=== PATIENT | female | born 1970 | race American Indian/Alaskan Native ===

== ENCOUNTER 2023-01-08 06:30 | Emergency (ER) | payer OTHER ==
[2023-01-08] MEDS ORDERED: ACETAMINOPHEN 500 MG TABLET (FP) PO ONE (06:50)
[2023-01-08 06:55] VITALS: RESP 20; BMI 32.2
[2023-01-08] MEDS ORDERED: ACETAMINOPHEN 325 MG TABLET (FP) ONE (07:08)
[2023-01-08 07:48] LABS: EOS % 3.9 % (0-4.5); HEMATOCRIT 34.9 % (32.4-45.2); HEMOGLOBIN 10.7 GM/dL (10.7-15.3); LYMPH % 26.8 % (8-40); MCH 23.9 pg (25.7-33.7); MCHC 30.8 g/dl (32.0-36.0); MEAN CELL VOLUME 77.7 fl (80-96); MONO % 7.2 % (3.8-10.2); NEUT % 61.1 % (42.8-82.8); PLATELET COUNT 263 10^3/uL (134-434); RBC 4.49 M/mm3 (3.60-5.2); RDW 16.7 % (11.6-15.6); WHITE BLOOD COUNT 6.4 K/mm3 (4.0-10.0)
[2023-01-08 07:56] LABS: CHLORIDE 96 mmol/L (98-107); POTASSIUM 4.8 mmol/L (3.5-5.1); SODIUM 134 mmol/L (136-145)
[2023-01-08 07:58] LABS: ALBUMIN 3.7 g/dl (3.4-5.0); ANION GAP 9 MMOL/L (8-16); CALCIUM 8.5 mg/dL (8.5-10.1); CO2 29 mmol/L (21-32)
[2023-01-08 07:59] LABS: BLOOD UREA NITROGEN 10.1 mg/dL (7-18)
[2023-01-08 08:01] LABS: SGPT/ALT 39 U/L (13-61)
[2023-01-08 08:02] LABS: CREATININE 0.9 mg/dL (0.55-1.3); SGOT/AST 26 U/L (15-37)
[2023-01-08 08:03] LABS: BILIRUBIN,TOTAL 0.4 mg/dL (0.2-1); TOT PROT 7.4 g/dl (6.4-8.2)
[2023-01-08 08:05] LABS: ALK PHOS 87 U/L (45-117)
[2023-01-08 08:13] LABS: GLUCOSE,RANDOM 490 mg/dL (74-106)
[2023-01-08] MEDS ORDERED: SODIUM CHLORIDE 0.9% 500 ML INFUS.BAG IV ONE (08:43)
[2023-01-08 09:59] VITALS: BP 156/83; PULSE 83; TEMP 97.8
== END 2023-01-08 12:48 | disposition home or self-care (01) ==
LOC: JER 06:30
DX: N63.10 Unspecified lump in the right breast, unspecified quadrant (principal); N64.4 Mastodynia
CPT/HCPCS: 19083; 36415; 76641-TC-RT; 77065-TC; 80053; 82962; 85025; 86850; 86900; 86901; 87040; 87899; 88305-TC; 88342-TC; 99284-25; A4648

== ENCOUNTER 2023-03-16 08:55 | Day surgery (SDC) | payer OTHER ==
[2023-03-16 09:38] LABS: BASO % 0.8 % (0-2.0); EOS % 5.3 % (0-4.5); HEMATOCRIT 33.6 % (32.4-45.2); HEMOGLOBIN 10.4 GM/dL (10.7-15.3); LYMPH % 19.4 % (8-40); MCH 23.2 pg (25.7-33.7); MCHC 31.1 g/dl (32.0-36.0); MEAN CELL VOLUME 74.8 fl (80-96); MEAN PLT VOLUME 8.3 fl (7.5-11.1); MONO % 6.2 % (3.8-10.2); NEUT % 68.3 % (42.8-82.8); PLATELET COUNT 336 10^3/uL (134-434); RDW 17.2 % (11.6-15.6); WHITE BLOOD COUNT 7.9 K/mm3 (4.0-10.0)
[2023-03-16] MEDS ORDERED: GRANISETRON HCL/PF 1 MG in SODIUM CHLORIDE 50 ML IVPB ONE (10:00)
[2023-03-16 10:04] LABS: CHLORIDE 99 mmol/L (98-107); POTASSIUM 5.3 mmol/L (3.5-5.1); SODIUM 130 mmol/L (136-145)
[2023-03-16 10:06] LABS: CALCIUM 8.9 mg/dL (8.5-10.1)
[2023-03-16 10:07] LABS: ALBUMIN 3.4 g/dl (3.4-5.0); ANION GAP 5 mmol/L (4-13); BLOOD UREA NITROGEN 10.4 mg/dL (7-18); CO2 27 mmol/L (21-32)
[2023-03-16 10:10] LABS: BILIRUBIN,DIRECT 0.1 mg/dL (0.0-0.2); CREATININE 0.7 mg/dL (0.55-1.3); SGOT/AST 15 U/L (15-37); SGPT/ALT 25 U/L (13-61)
[2023-03-16 10:11] LABS: BILIRUBIN,TOTAL 0.2 mg/dL (0.2-1); TOT PROT 7.3 g/dl (6.4-8.2)
[2023-03-16 10:12] LABS: ALK PHOS 116 U/L (45-117); GLUCOSE,RANDOM 434 mg/dL (74-106)
[2023-03-16] MEDS ORDERED: PEMBROLIZUMAB 200 MG in SODIUM CHLORIDE 50 ML IV ONE (10:30)
[2023-03-16] MEDS ORDERED: PACLITAXEL IVPB ONE (11:00)
[2023-03-16] MEDS ORDERED: SODIUM CHLORIDE IVPB ONE (11:00)
[2023-03-16] MEDS ORDERED: DEXAMETHASONE SODIUM PHOSPHATE 10 MG in SODIUM CHLORIDE 50 ML IVPB ONE (11:00)
[2023-03-16] MEDS ORDERED: INSULIN (NOVOLOG) ASPART 100 UNITS/ML 10ML VIAL SQ ONE (11:45)
[2023-03-16 16:11] VITALS: RESP 18; TEMP 98.1
[2023-03-16 16:25] VITALS: BP 165/108; PULSE 95
== END 2023-03-16 14:30 | disposition home or self-care (01) ==
LOC: JONCCHEMO 08:55 → J7W 08:55 → JONCCHEMO 14:30
PROVIDERS: ATTEND Internal Medicine Hematology & Oncology
DX: Z51.11 Encounter for antineoplastic chemotherapy (principal); C50.919 Malignant neoplasm of unspecified site of unspecified female breast; C78.02 Secondary malignant neoplasm of left lung; C78.01 Secondary malignant neoplasm of right lung
CPT/HCPCS: 36415; 80048; 80076; 82962; 84703; 85025; 96367; 96375; 96413; 96417; J9271

== ENCOUNTER 2023-03-23 08:44 | Day surgery (SDC) | payer OTHER ==
[2023-03-23 09:25] LABS: HEMOGLOBIN 10.9 GM/dL (10.7-15.3); LYMPH % 24.5 % (8-40); MCH 23.2 pg (25.7-33.7); MEAN CELL VOLUME 72.7 fl (80-96); MEAN PLT VOLUME 8.3 fl (7.5-11.1); MONO % 4.3 % (3.8-10.2); NEUT % 61.2 % (42.8-82.8); PLATELET COUNT 344 10^3/uL (134-434); RBC 4.68 M/mm3 (3.60-5.2); RDW 17.5 % (11.6-15.6); WHITE BLOOD COUNT 6.2 K/mm3 (4.0-10.0)
[2023-03-23] MEDS ORDERED: DEXAMETHASONE SODIUM PHOSPHATE 10 MG in SODIUM CHLORIDE 50 ML IVPB ONE (09:30)
[2023-03-23] MEDS ORDERED: GRANISETRON HCL/PF 1 MG in SODIUM CHLORIDE 50 ML IVPB ONE (09:30)
[2023-03-23 09:35] LABS: CHLORIDE 98 mmol/L (98-107); POTASSIUM 4.5 mmol/L (3.5-5.1); SODIUM 132 mmol/L (136-145)
[2023-03-23 09:37] LABS: ALBUMIN 3.4 g/dl (3.4-5.0)
[2023-03-23 09:38] LABS: ANION GAP 9 mmol/L (4-13); BLOOD UREA NITROGEN 6.4 mg/dL (7-18); CO2 26 mmol/L (21-32)
[2023-03-23 09:40] LABS: BILIRUBIN,DIRECT 0.1 mg/dL (0.0-0.2); CREATININE 0.8 mg/dL (0.55-1.3); SGOT/AST 27 U/L (15-37)
[2023-03-23 09:41] LABS: SGPT/ALT 56 U/L (13-61)
[2023-03-23 09:42] LABS: BILIRUBIN,TOTAL 0.2 mg/dL (0.2-1); TOT PROT 6.9 g/dl (6.4-8.2)
[2023-03-23 09:43] LABS: ALK PHOS 96 U/L (45-117)
[2023-03-23 09:45] LABS: GLUCOSE,RANDOM 408 mg/dL (74-106)
[2023-03-23] MEDS ORDERED: SODIUM CHLORIDE IVPB ONE (10:00)
[2023-03-23] MEDS ORDERED: PACLITAXEL IVPB ONE (10:00)
[2023-03-23] MEDS ORDERED: INSULIN (NOVOLOG) ASPART 100 UNITS/ML 10ML VIAL ONE (11:04)
[2023-03-23] MEDS ORDERED: INSULIN (NOVOLOG) ASPART 100 UNITS/ML 10ML VIAL SQ ONE (11:25)
[2023-03-23] MEDS ORDERED: INSULIN SLIDING SCALE (NOVOLOG) 1 VIAL SQ ONE (13:00)
[2023-03-23 15:24] VITALS: BP 164/77; PULSE 90; RESP 18; TEMP 98.5
== END 2023-03-23 13:15 | disposition home or self-care (01) ==
LOC: JONCCHEMO 08:44 → J7W 08:45 → JONCCHEMO 13:15
PROVIDERS: ATTEND Internal Medicine Hematology & Oncology
DX: Z51.11 Encounter for antineoplastic chemotherapy (principal); C50.919 Malignant neoplasm of unspecified site of unspecified female breast; C78.02 Secondary malignant neoplasm of left lung; C78.01 Secondary malignant neoplasm of right lung
CPT/HCPCS: 36415; 80048; 80076; 85025; 96367; 96375; 96413; J9271

== ENCOUNTER 2023-04-06 07:41 | Day surgery (SDC) | payer OTHER ==
[2023-04-06 08:41] LABS: EOS % 7.9 % (0-4.5); HEMATOCRIT 32.7 % (32.4-45.2); LYMPH % 20.3 % (8-40); MCH 22.5 pg (25.7-33.7); MCHC 30.5 g/dl (32.0-36.0); MEAN CELL VOLUME 73.7 fl (80-96); MEAN PLT VOLUME 8.2 fl (7.5-11.1); MONO % 10.9 % (3.8-10.2); NEUT % 59.9 % (42.8-82.8); PLATELET COUNT 332 10^3/uL (134-434); RBC 4.44 M/mm3 (3.60-5.2); RDW 17.6 % (11.6-15.6); WHITE BLOOD COUNT 7.7 K/mm3 (4.0-10.0)
[2023-04-06 09:01] LABS: POTASSIUM 4.4 mmol/L (3.5-5.1)
[2023-04-06 09:04] LABS: ALBUMIN 3.2 g/dl (3.4-5.0); BLOOD UREA NITROGEN 8.7 mg/dL (7-18); CALCIUM 8.4 mg/dL (8.5-10.1)
[2023-04-06 09:06] LABS: BILIRUBIN,DIRECT 0.1 mg/dL (0.0-0.2)
[2023-04-06 09:07] LABS: CREATININE 0.6 mg/dL (0.55-1.3)
[2023-04-06 09:08] LABS: TOT PROT 6.4 g/dl (6.4-8.2)
[2023-04-06 09:09] LABS: BILIRUBIN,TOTAL 0.3 mg/dL (0.2-1)
[2023-04-06] MEDS ORDERED: DEXAMETHASONE SODIUM PHOSPHATE 10 MG in SODIUM CHLORIDE 50 ML IVPB ONE ×2 (09:30→10:30)
[2023-04-06] MEDS ORDERED: GRANISETRON HCL/PF 1 MG in SODIUM CHLORIDE 50 ML IVPB ONE (09:30)
[2023-04-06] MEDS ORDERED: PEMBROLIZUMAB 200 MG in SODIUM CHLORIDE 50 ML IV ONE (10:00)
[2023-04-06] MEDS ORDERED: INSULIN SLIDING SCALE (NOVOLOG) 1 VIAL SQ ONE (10:30)
[2023-04-06] MEDS ORDERED: PACLITAXEL IVPB ONE (10:30)
[2023-04-06] MEDS ORDERED: SODIUM CHLORIDE IVPB ONE (10:30)
[2023-04-06 14:56] VITALS: BP 173/82; PULSE 76; RESP 18; TEMP 98.2
== END 2023-04-06 13:14 | disposition home or self-care (01) ==
LOC: JONCCHEMO 07:41 → J7W 07:43 → JONCCHEMO 13:14
PROVIDERS: ATTEND Internal Medicine Hematology & Oncology
DX: Z51.11 Encounter for antineoplastic chemotherapy (principal); C50.919 Malignant neoplasm of unspecified site of unspecified female breast
CPT/HCPCS: 36415; 80048; 80076; 84703; 85025; 96367; 96375; 96413; 96417; J9271

== ENCOUNTER 2023-04-13 07:19 | Day surgery (SDC) | payer OTHER ==
[2023-04-13 08:20] LABS: BASO % 0.8 % (0-2.0); EOS % 6.5 % (0-4.5); HEMATOCRIT 31.7 % (32.4-45.2); HEMOGLOBIN 10.2 GM/dL (10.7-15.3); MCH 23.8 pg (25.7-33.7); MCHC 32.3 g/dl (32.0-36.0); MEAN CELL VOLUME 73.6 fl (80-96); MEAN PLT VOLUME 8.9 fl (7.5-11.1); MONO % 5.3 % (3.8-10.2); NEUT % 69.4 % (42.8-82.8); PLATELET COUNT 323 10^3/uL (134-434); RDW 17.3 % (11.6-15.6); WHITE BLOOD COUNT 8.7 K/mm3 (4.0-10.0)
[2023-04-13 08:33] LABS: POTASSIUM 4.4 mmol/L (3.5-5.1)
[2023-04-13 08:35] LABS: ALBUMIN 3.3 g/dl (3.4-5.0); BLOOD UREA NITROGEN 9.4 mg/dL (7-18); CALCIUM 8.3 mg/dL (8.5-10.1)
[2023-04-13 08:38] LABS: BILIRUBIN,DIRECT 0.1 mg/dL (0.0-0.2); CREATININE 0.6 mg/dL (0.55-1.3)
[2023-04-13 08:40] LABS: BILIRUBIN,TOTAL 0.3 mg/dL (0.2-1); TOT PROT 6.9 g/dl (6.4-8.2)
[2023-04-13] MEDS ORDERED: DEXAMETHASONE SODIUM PHOSPHATE 10 MG in SODIUM CHLORIDE 50 ML IVPB ONE (09:30)
[2023-04-13] MEDS ORDERED: GRANISETRON HCL/PF 1 MG in SODIUM CHLORIDE 50 ML IVPB ONE (09:30)
[2023-04-13] MEDS ORDERED: PACLITAXEL IVPB ONE (10:00)
[2023-04-13] MEDS ORDERED: SODIUM CHLORIDE IVPB ONE (10:00)
[2023-04-13 15:56] VITALS: BP 166/81; PULSE 104; RESP 18; TEMP 98.3
== END 2023-04-13 12:00 | disposition home or self-care (01) ==
LOC: JONCCHEMO 07:19 → J7W 07:20 → JONCCHEMO 12:00
PROVIDERS: ATTEND Internal Medicine Hematology & Oncology
DX: Z51.11 Encounter for antineoplastic chemotherapy (principal); C50.919 Malignant neoplasm of unspecified site of unspecified female breast; C78.02 Secondary malignant neoplasm of left lung; C78.01 Secondary malignant neoplasm of right lung
CPT/HCPCS: 36415; 80048; 80076; 85025; 96375; 96413; J9271

== ENCOUNTER 2023-04-21 08:56 | Emergency (ER) | payer OTHER ==
[2023-04-21 09:08] VITALS: BMI 33.2
[2023-04-21] MEDS ORDERED: ACETAMINOPHEN 1000 MG/100 ML BAG IVPB ONE (09:36)
[2023-04-21] MEDS ORDERED: MAG HYDROX/AL HYDROX/SIMETH 30 ML UNIT-DOSE CUP PO ONE (09:36)
[2023-04-21] MEDS ORDERED: FAMOTIDINE 20 MG/50 ML IVPB 20 MG/50 ML MG IVPB ONE ×2 (09:36→09:56)
[2023-04-21] MEDS ORDERED: ACETAMINOPHEN INJECTION 100 ML IVPB ONE (09:55)
[2023-04-21] MEDS ORDERED: MAG HYDROX/AL HYDROX/SIMETH 30 ML UNIT-DOSE CUP ONE (09:55)
[2023-04-21 10:05] LABS: HEMATOCRIT 30.6 % (32.4-45.2); HEMOGLOBIN 9.5 GM/dL (10.7-15.3); MCH 23.1 pg (25.7-33.7); MCHC 31.2 g/dl (32.0-36.0); MEAN CELL VOLUME 74.2 fl (80-96); MEAN PLT VOLUME 8.4 fl (7.5-11.1); PLATELET COUNT 306 10^3/uL (134-434); RBC 4.13 M/mm3 (3.60-5.2); RDW 18.2 % (11.6-15.6)
[2023-04-21 10:49] LABS: POTASSIUM 4.3 mmol/L (3.5-5.1)
[2023-04-21 10:52] LABS: BLOOD UREA NITROGEN 6.2 mg/dL (7-18); CALCIUM 8.4 mg/dL (8.5-10.1); MAGNESIUM 1.9 mg/dL (1.8-2.4)
[2023-04-21 10:56] LABS: BILIRUBIN,TOTAL 0.3 mg/dL (0.2-1); CREATININE 0.6 mg/dL (0.55-1.3)
[2023-04-21 10:57] LABS: TOT PROT 6.4 g/dl (6.4-8.2)
[2023-04-21] MEDS ORDERED: SODIUM CHLORIDE 0.9% 500 ML INFUS.BAG IV ONE (11:23)
[2023-04-21 11:40] LABS: ANISOCYTOSIS 2+; MACROCYTOSIS 0
[2023-04-21 12:06] LABS: PH,URINE 6.5 (5.0-8.0); URINE APPEARANCE CLEAR; URINE BILIRUBIN NEGATIVE (NEGATIVE); URINE COLOR YELLOW; URINE GLUCOSE (UA) 3+ (NEGATIVE); URINE KETONE NEGATIVE (NEGATIVE); URINE LEUK ESTERASE NEGATIVE (NEGATIVE); URINE NITRITE NEGATIVE (NEGATIVE); URINE PROTEIN NEGATIVE (NEGATIVE); URINE UROBILINOGEN 0.2 mg/dL (0.2-1.0)
[2023-04-21 13:17] VITALS: BP 133/69; PULSE 83; RESP 18; TEMP 97.7
== END 2023-04-21 14:12 | disposition home or self-care (01) ==
LOC: JER 08:56
PROC: 3E033GC Introduction of Other Therapeutic Substance into Peripheral Vein, Percutaneous Approach (ICD-10-PCS; principal; 2023-04-21)
PROC: 3E033NZ Introduction of Analgesics, Hypnotics, Sedatives into Peripheral Vein, Percutaneous Approach (ICD-10-PCS; 2023-04-21)
DX: R10.13 Epigastric pain (principal); R19.7 Diarrhea, unspecified; R06.02 Shortness of breath; Z20.822 Contact with and (suspected) exposure to COVID-19
CPT/HCPCS: 0241U-QW; 36415; 71045-TC-FY; 74174-TC; 80053; 81003; 83605; 83690; 83735; 84484; 84703; 85025; 87077; 87086; 93005; 93010; 99285-25; Q9967

== ENCOUNTER 2023-04-27 07:59 | Day surgery (SDC) | payer OTHER ==
[2023-04-27 08:52] VITALS: BP 162/79; PULSE 83; RESP 20; TEMP 98
[2023-04-27 08:58] LABS: HEMATOCRIT 30.4 % (32.4-45.2); HEMOGLOBIN 9.9 GM/dL (10.7-15.3); MCH 23.7 pg (25.7-33.7); MCHC 32.7 g/dl (32.0-36.0); MEAN CELL VOLUME 72.5 fl (80-96); MEAN PLT VOLUME 7.8 fl (7.5-11.1); PLATELET COUNT 328 10^3/uL (134-434); RDW 18.8 % (11.6-15.6); WHITE BLOOD COUNT 9.2 K/mm3 (4.0-10.0)
[2023-04-27 09:13] LABS: POTASSIUM 4.3 mmol/L (3.5-5.1)
[2023-04-27 09:15] LABS: ALBUMIN 3.1 g/dl (3.4-5.0); BLOOD UREA NITROGEN 7.8 mg/dL (7-18); CALCIUM 8.4 mg/dL (8.5-10.1)
[2023-04-27 09:18] LABS: BILIRUBIN,DIRECT 0.1 mg/dL (0.0-0.2); CREATININE 0.7 mg/dL (0.55-1.3)
[2023-04-27 09:20] LABS: BILIRUBIN,TOTAL 0.3 mg/dL (0.2-1); TOT PROT 6.6 g/dl (6.4-8.2)
[2023-04-27] MEDS ORDERED: INSULIN SLIDING SCALE (NOVOLOG) 1 VIAL SQ ONE (09:30)
[2023-04-27] MEDS ORDERED: DEXAMETHASONE SODIUM PHOSPHATE 10 MG in SODIUM CHLORIDE 50 ML IVPB ONE (09:30)
[2023-04-27] MEDS ORDERED: GRANISETRON HCL/PF 1 MG in SODIUM CHLORIDE 50 ML IVPB ONE (09:30)
[2023-04-27 09:57] LABS: ANISOCYTOSIS 3+; MACROCYTOSIS 0
[2023-04-27] MEDS ORDERED: PEMBROLIZUMAB 200 MG in SODIUM CHLORIDE 50 ML IV ONE (10:00)
[2023-04-27] MEDS ORDERED: PACLITAXEL IVPB ONE (10:30)
[2023-04-27] MEDS ORDERED: SODIUM CHLORIDE IVPB ONE (10:30)
== END 2023-04-27 13:10 | disposition home or self-care (01) ==
LOC: JONCCHEMO 07:59 → J7W 08:00 → JONCCHEMO 13:10
PROVIDERS: ATTEND Internal Medicine Hematology & Oncology
PROC: 3E03305 Introduction of Other Antineoplastic into Peripheral Vein, Percutaneous Approach (ICD-10-PCS; principal; 2023-04-27)
PROC: 3E033GC Introduction of Other Therapeutic Substance into Peripheral Vein, Percutaneous Approach (ICD-10-PCS; 2023-04-27)
DX: C50.919 Malignant neoplasm of unspecified site of unspecified female breast (principal); C78.01 Secondary malignant neoplasm of right lung; C78.02 Secondary malignant neoplasm of left lung
CPT/HCPCS: 36415; 80048; 80076; 84703; 85025; 96375; 96413; 96417; J9271

== ENCOUNTER 2023-05-04 07:41 | Day surgery (SDC) | payer OTHER ==
[2023-05-04 08:16] LABS: EOS % 5.5 % (0-4.5); HEMATOCRIT 30.4 % (32.4-45.2); LYMPH % 18.4 % (8-40); MCH 23.9 pg (25.7-33.7); MCHC 32.8 g/dl (32.0-36.0); MEAN CELL VOLUME 72.8 fl (80-96); MEAN PLT VOLUME 8.4 fl (7.5-11.1); MONO % 4.6 % (3.8-10.2); NEUT % 70.5 % (42.8-82.8); PLATELET COUNT 309 10^3/uL (134-434); RBC 4.18 M/mm3 (3.60-5.2); RDW 19.1 % (11.6-15.6); WHITE BLOOD COUNT 8.5 K/mm3 (4.0-10.0)
[2023-05-04 08:37] LABS: POTASSIUM 4.5 mmol/L (3.5-5.1)
[2023-05-04 08:39] LABS: BLOOD UREA NITROGEN 7.2 mg/dL (7-18); CALCIUM 8.1 mg/dL (8.5-10.1)
[2023-05-04 08:40] LABS: ALBUMIN 3.2 g/dl (3.4-5.0)
[2023-05-04 08:42] LABS: BILIRUBIN,DIRECT 0.1 mg/dL (0.0-0.2); CREATININE 0.6 mg/dL (0.55-1.3)
[2023-05-04 08:44] LABS: BILIRUBIN,TOTAL 0.2 mg/dL (0.2-1); TOT PROT 6.6 g/dl (6.4-8.2)
[2023-05-04] MEDS ORDERED: DEXAMETHASONE SODIUM PHOSPHATE 10 MG in SODIUM CHLORIDE 50 ML IVPB ONE (10:00)
[2023-05-04] MEDS ORDERED: GRANISETRON HCL/PF 1 MG in SODIUM CHLORIDE 50 ML IVPB ONE (10:00)
[2023-05-04] MEDS ORDERED: INSULIN (NOVOLOG) ASPART 100 UNITS/ML 10ML VIAL SQ ONE (10:15)
[2023-05-04] MEDS ORDERED: PACLITAXEL IVPB ONE (10:30)
[2023-05-04] MEDS ORDERED: SODIUM CHLORIDE IVPB ONE (10:30)
[2023-05-04 14:10] VITALS: BP 129/74; PULSE 87; RESP 20; TEMP 98.1
== END 2023-05-04 12:35 | disposition home or self-care (01) ==
LOC: JONCCHEMO 07:41 → J7W 07:42 → JONCCHEMO 12:35
PROVIDERS: ATTEND Internal Medicine Hematology & Oncology
DX: Z51.11 Encounter for antineoplastic chemotherapy (principal); C50.919 Malignant neoplasm of unspecified site of unspecified female breast; C78.01 Secondary malignant neoplasm of right lung; C78.02 Secondary malignant neoplasm of left lung
CPT/HCPCS: 36415; 80048; 80076; 85025; 96367; 96413; J9271

== ENCOUNTER 2023-05-18 07:33 | Day surgery (SDC) | payer OTHER ==
[2023-05-18 08:31] LABS: HEMATOCRIT 29.9 % (32.4-45.2); HEMOGLOBIN 9.5 GM/dL (10.7-15.3); MCHC 31.6 g/dl (32.0-36.0); MEAN CELL VOLUME 75.8 fl (80-96); MEAN PLT VOLUME 7.5 fl (7.5-11.1); PLATELET COUNT 300 10^3/uL (134-434); RBC 3.95 M/mm3 (3.60-5.2); RDW 22.3 % (11.6-15.6); WHITE BLOOD COUNT 10.4 K/mm3 (4.0-10.0)
[2023-05-18 08:48] LABS: POTASSIUM 4.6 mmol/L (3.5-5.1)
[2023-05-18 08:52] LABS: BLOOD UREA NITROGEN 5.6 mg/dL (7-18); CALCIUM 8.6 mg/dL (8.5-10.1)
[2023-05-18 08:55] LABS: CREATININE 0.6 mg/dL (0.55-1.3)
[2023-05-18 08:56] LABS: BILIRUBIN,DIRECT 0.1 mg/dL (0.0-0.2)
[2023-05-18 08:57] LABS: BILIRUBIN,TOTAL 0.2 mg/dL (0.2-1); TOT PROT 6.3 g/dl (6.4-8.2)
[2023-05-18] MEDS ORDERED: DEXAMETHASONE SODIUM PHOSPHATE 10 MG in SODIUM CHLORIDE 50 ML IVPB ONE (09:30)
[2023-05-18] MEDS ORDERED: GRANISETRON HCL/PF 1 MG in SODIUM CHLORIDE 50 ML IVPB ONE (09:30)
[2023-05-18 09:55] LABS: ANISOCYTOSIS 3+; MACROCYTOSIS 0; ROULEAU 1+
[2023-05-18] MEDS ORDERED: INSULIN ASPART SLIDING SCALE (NOVOLOG) 1 VIAL SQ ONE (10:00)
[2023-05-18] MEDS ORDERED: PACLITAXEL 120 MG in SODIUM CHLORIDE 250 ML IVPB ONE (10:00)
[2023-05-18] MEDS ORDERED: INSULIN (NOVOLOG) ASPART 100 UNITS/ML 10ML VIAL ONE (10:49)
[2023-05-18] MEDS ORDERED: PEMBROLIZUMAB 200 MG in SODIUM CHLORIDE 50 ML IV ONE (11:00)
[2023-05-18 16:09] VITALS: BP 148/79; PULSE 80; RESP 20; TEMP 98.3
[2023-05-18] MEDS ORDERED: PORTA CATH FLUSH 10 ML IVPUSH PRN (16:09)
== END 2023-05-18 14:10 | disposition home or self-care (01) ==
LOC: JONCCHEMO 07:33 → J7W 07:34 → JONCCHEMO 14:10
PROVIDERS: ATTEND Internal Medicine Hematology & Oncology
DX: Z51.11 Encounter for antineoplastic chemotherapy (principal); C50.919 Malignant neoplasm of unspecified site of unspecified female breast; C78.01 Secondary malignant neoplasm of right lung; C78.02 Secondary malignant neoplasm of left lung
CPT/HCPCS: 36415; 80048; 80076; 84703; 85025; 96367; 96413; 96417; J9271

== ENCOUNTER 2023-06-15 08:17 | Day surgery (SDC) | payer OTHER ==
[~2023-06-15 08:17] MED LIST: DEXAMETHASONE SODIUM PHOSPHATE 10 MG in SODIUM CHLORIDE 50 ML IVPB ONE; GRANISETRON HCL/PF 1 MG in SODIUM CHLORIDE 50 ML IVPB ONE; INSULIN ASPART SLIDING SCALE (NOVOLOG) 1 VIAL SQ ONE; PACLITAXEL 120 MG in SODIUM CHLORIDE 250 ML IVPB ONE; PEMBROLIZUMAB 200 MG in SODIUM CHLORIDE 50 ML IV ONE
[2023-06-15] MEDS ORDERED: GRANISETRON HCL/PF 1 MG in SODIUM CHLORIDE 50 ML IVPB ONE (09:30)
[2023-06-15] MEDS ORDERED: DEXAMETHASONE SODIUM PHOSPHATE 10 MG in SODIUM CHLORIDE 50 ML IVPB ONE (09:30)
[2023-06-15 09:36] LABS: BASO % 0.7 % (0-2.0); EOS % 9.6 % (0-4.5); HEMATOCRIT 35.7 % (32.4-45.2); LYMPH % 20.3 % (8-40); MCH 22.8 pg (25.7-33.7); MCHC 30.9 g/dl (32.0-36.0); MEAN CELL VOLUME 73.9 fl (80-96); MEAN PLT VOLUME 8.2 fl (7.5-11.1); NEUT % 62.4 % (42.8-82.8); PLATELET COUNT 311 10^3/uL (134-434); RBC 4.83 M/mm3 (3.60-5.2); RDW 22.4 % (11.6-15.6); WHITE BLOOD COUNT 9.8 K/mm3 (4.0-10.0)
[2023-06-15 09:50] LABS: POTASSIUM 4.6 mmol/L (3.5-5.1)
[2023-06-15 09:53] LABS: ALBUMIN 3.8 g/dl (3.4-5.0); BLOOD UREA NITROGEN 6.2 mg/dL (7-18); CALCIUM 9.6 mg/dL (8.5-10.1)
[2023-06-15 09:56] LABS: CREATININE 0.6 mg/dL (0.55-1.3)
[2023-06-15 09:58] LABS: BILIRUBIN,DIRECT 0.1 mg/dL (0.0-0.2); BILIRUBIN,TOTAL 0.3 mg/dL (0.2-1); TOT PROT 7.9 g/dl (6.4-8.2)
[2023-06-15] MEDS ORDERED: PACLITAXEL 120 MG in SODIUM CHLORIDE 250 ML IVPB ONE (10:00)
[2023-06-15 10:48] LABS: ANISOCYTOSIS 3+; MACROCYTOSIS 0
[2023-06-15] MEDS ORDERED: PEMBROLIZUMAB 200 MG in SODIUM CHLORIDE 50 ML IV ONE (11:00)
[2023-06-15] MEDS ORDERED: INSULIN ASPART SLIDING SCALE (NOVOLOG) 1 VIAL SQ ONE (11:15)
[2023-06-15] MEDS ORDERED: INSULIN (NOVOLOG) ASPART 100 UNITS/ML 10ML VIAL ONE (13:05)
[2023-06-15 16:07] VITALS: TEMP 98.6
[2023-06-15 16:52] VITALS: BP 176/86; PULSE 89; RESP 18
== END 2023-06-15 14:30 | disposition home or self-care (01) ==
LOC: JONCCHEMO 08:17 → J7W 08:25 → JONCCHEMO 14:30
PROVIDERS: ATTEND Internal Medicine Hematology & Oncology
DX: Z51.11 Encounter for antineoplastic chemotherapy (principal); C50.919 Malignant neoplasm of unspecified site of unspecified female breast; C78.01 Secondary malignant neoplasm of right lung; C78.02 Secondary malignant neoplasm of left lung
CPT/HCPCS: 36415; 80048; 80076; 85025; 96375; 96413; 96417; J9271

== ENCOUNTER 2023-06-22 07:33 | Day surgery (SDC) | payer OTHER ==
[2023-06-22 08:35] LABS: EOS % 9.3 % (0-4.5); HEMATOCRIT 29.8 % (32.4-45.2); HEMOGLOBIN 9.5 GM/dL (10.7-15.3); LYMPH % 18.4 % (8-40); MCH 23.7 pg (25.7-33.7); MEAN CELL VOLUME 74.2 fl (80-96); MEAN PLT VOLUME 8.9 fl (7.5-11.1); MONO % 5.7 % (3.8-10.2); NEUT % 65.6 % (42.8-82.8); PLATELET COUNT 296 10^3/uL (134-434); RBC 4.02 M/mm3 (3.60-5.2); WHITE BLOOD COUNT 7.9 K/mm3 (4.0-10.0)
[2023-06-22 09:26] LABS: POTASSIUM 4.5 mmol/L (3.5-5.1)
[2023-06-22 09:28] LABS: CALCIUM 8.4 mg/dL (8.5-10.1)
[2023-06-22 09:29] LABS: ALBUMIN 3.2 g/dl (3.4-5.0)
[2023-06-22 09:31] LABS: BILIRUBIN,DIRECT 0.1 mg/dL (0.0-0.2)
[2023-06-22 09:32] LABS: CREATININE 0.6 mg/dL (0.55-1.3)
[2023-06-22 09:33] LABS: TOT PROT 6.7 g/dl (6.4-8.2)
[2023-06-22 09:34] LABS: BILIRUBIN,TOTAL 0.3 mg/dL (0.2-1)
[2023-06-22] MEDS ORDERED: DEXAMETHASONE SODIUM PHOSPHATE 10 MG in SODIUM CHLORIDE 50 ML IVPB ONE (10:00)
[2023-06-22] MEDS ORDERED: GRANISETRON HCL/PF 1 MG in SODIUM CHLORIDE 50 ML IVPB ONE (10:00)
[2023-06-22] MEDS ORDERED: PACLITAXEL 120 MG in SODIUM CHLORIDE 250 ML IVPB ONE (10:30)
[2023-06-22] MEDS ORDERED: INSULIN (NOVOLOG) ASPART 100 UNITS/ML 10ML VIAL ONE (11:38)
[2023-06-22] MEDS ORDERED: INSULIN (NOVOLOG) ASPART 100 UNITS/ML 10ML VIAL SQ ONE (11:45)
[2023-06-22 12:13] LABS: ANISOCYTOSIS 1+; MACROCYTOSIS 0
[2023-06-22 15:57] VITALS: BP 146/74; PULSE 91; RESP 18; TEMP 98.3
== END 2023-06-22 11:50 | disposition home or self-care (01) ==
LOC: J7W 07:33 → JONCCHEMO 07:33
PROVIDERS: ATTEND Internal Medicine Hematology & Oncology
DX: Z51.11 Encounter for antineoplastic chemotherapy (principal); C50.919 Malignant neoplasm of unspecified site of unspecified female breast; C78.01 Secondary malignant neoplasm of right lung; C78.02 Secondary malignant neoplasm of left lung
CPT/HCPCS: 36415; 80048; 80076; 85025; 96375; 96413

== ENCOUNTER 2023-08-02 08:26 | Day surgery (SDC) | payer OTHER ==
[2023-08-02 09:22] LABS: EOS % 12.1 % (0-4.5); HEMOGLOBIN 9.5 GM/dL (10.7-15.3); LYMPH % 19.3 % (8-40); MCH 23.9 pg (25.7-33.7); MCHC 32.8 g/dl (32.0-36.0); MEAN PLT VOLUME 8.6 fl (7.5-11.1); MONO % 8.9 % (3.8-10.2); NEUT % 58.7 % (42.8-82.8); PLATELET COUNT 288 10^3/uL (134-434); RBC 3.97 M/mm3 (3.60-5.2); WHITE BLOOD COUNT 7.6 K/mm3 (4.0-10.0)
[2023-08-02 10:02] LABS: POTASSIUM 4.2 mmol/L (3.5-5.1)
[2023-08-02 10:05] LABS: CALCIUM 8.5 mg/dL (8.5-10.1)
[2023-08-02 10:06] LABS: ALBUMIN 3.2 g/dl (3.4-5.0); BLOOD UREA NITROGEN 7.3 mg/dL (7-18)
[2023-08-02 10:08] LABS: BILIRUBIN,DIRECT 0.1 mg/dL (0.0-0.2)
[2023-08-02 10:09] LABS: CREATININE 0.6 mg/dL (0.55-1.3)
[2023-08-02 10:10] LABS: BILIRUBIN,TOTAL 0.2 mg/dL (0.2-1); TOT PROT 6.5 g/dl (6.4-8.2)
[2023-08-02] MEDS: FOSAPREPITANT DIMEGLUMINE 150 MG in SODIUM CHLORIDE 145 ML IVPB ONE (11:25)
[2023-08-02] MEDS: PALONOSETRON HCL 0.25 MG/5 ML VIAL IVPUSH ONE (12:00)
[2023-08-02] MEDS: DEXAMETHASONE SODIUM PHOSPHATE 10 MG in SODIUM CHLORIDE 50 ML IVPB ONE (12:05)
[2023-08-02 12:13] LABS: ANISOCYTOSIS 2+; MACROCYTOSIS 0
[2023-08-02] MEDS: SODIUM CHLORIDE IV ONE ×2 (12:26→13:38)
[2023-08-02] MEDS: PEMBROLIZUMAB IV ONE (12:26)
[2023-08-02] MEDS: SODIUM CHLORIDE IVPB ONE (12:58)
[2023-08-02] MEDS: GEMCITABINE HCL IVPB ONE (12:58)
[2023-08-02] MEDS: CARBOPLATIN IV ONE (13:38)
[2023-08-02 16:43] VITALS: BP 133/74; PULSE 78; RESP 18; TEMP 98.3
== END 2023-08-02 14:30 | disposition home or self-care (01) ==
LOC: JONCCHEMO 08:26 → J7W 08:27 → JONCCHEMO 14:30
PROVIDERS: ATTEND Internal Medicine Hematology & Oncology
DX: Z51.11 Encounter for antineoplastic chemotherapy (principal); C50.919 Malignant neoplasm of unspecified site of unspecified female breast; C78.01 Secondary malignant neoplasm of right lung; C78.02 Secondary malignant neoplasm of left lung
CPT/HCPCS: 36415; 80048; 80076; 84703; 85025; 96367; 96375; 96413; 96417; J1453; J2469; J9271

== ENCOUNTER 2023-08-09 08:04 | Day surgery (SDC) | payer OTHER ==
[2023-08-09 09:15] LABS: BASO % 0.7 % (0-2.0); EOS % 8.9 % (0-4.5); HEMATOCRIT 28.1 % (32.4-45.2); LYMPH % 22.2 % (8-40); MCH 23.5 pg (25.7-33.7); MCHC 32.2 g/dl (32.0-36.0); MEAN CELL VOLUME 72.9 fl (80-96); MEAN PLT VOLUME 8.2 fl (7.5-11.1); MONO % 5.7 % (3.8-10.2); NEUT % 62.5 % (42.8-82.8); PLATELET COUNT 213 10^3/uL (134-434); RBC 3.85 M/mm3 (3.60-5.2); RDW 20.4 % (11.6-15.6); WHITE BLOOD COUNT 5.2 K/mm3 (4.0-10.0)
[2023-08-09 09:58] LABS: CHLORIDE 100 mmol/L (98-107); POTASSIUM 4.9 mmol/L (3.5-5.1); SODIUM 134 mmol/L (136-145)
[2023-08-09 10:02] LABS: ALBUMIN 3.1 g/dl (3.4-5.0); ANION GAP 5 mmol/L (4-13); BLOOD UREA NITROGEN 8.9 mg/dL (7-18); CALCIUM 8.9 mg/dL (8.5-10.1); CO2 29 mmol/L (21-32); GLUCOSE,RANDOM 381 mg/dL (74-106)
[2023-08-09 10:06] LABS: BILIRUBIN,DIRECT < 0.1 mg/dL (0.0-0.2); CREATININE 0.6 mg/dL (0.55-1.3); SGOT/AST 20 U/L (15-37); SGPT/ALT 36 U/L (13-61)
[2023-08-09 10:07] LABS: BILIRUBIN,TOTAL 0.2 mg/dL (0.2-1); TOT PROT 6.2 g/dl (6.4-8.2)
[2023-08-09 10:08] LABS: ALK PHOS 98 U/L (45-117)
[2023-08-09] MEDS: GRANISETRON HCL/PF 1 MG in SODIUM CHLORIDE 50 ML IVPB ONE (10:27)
[2023-08-09] MEDS: SODIUM CHLORIDE IV ONE (10:42)
[2023-08-09] MEDS: GEMCITABINE HCL IV ONE (10:42)
[2023-08-09 17:48] VITALS: BP 164/70; PULSE 84; RESP 20; TEMP 98.2
== END 2023-08-09 11:55 | disposition home or self-care (01) ==
LOC: JONCCHEMO 08:04 → J7W 08:05 → JONCCHEMO 11:55
PROVIDERS: ATTEND Internal Medicine Hematology & Oncology
DX: Z51.11 Encounter for antineoplastic chemotherapy (principal); C50.919 Malignant neoplasm of unspecified site of unspecified female breast; C78.01 Secondary malignant neoplasm of right lung; C78.02 Secondary malignant neoplasm of left lung
CPT/HCPCS: 36415; 80048; 80076; 85025; 96375; 96413

== ENCOUNTER 2023-08-23 08:22 | Day surgery (SDC) | payer OTHER ==
[2023-08-23 09:09] VITALS: RESP 18; TEMP 98
[2023-08-23 09:18] LABS: BASO % 0.7 % (0-2.0); EOS % 3.4 % (0-4.5); HEMATOCRIT 28.1 % (32.4-45.2); HEMOGLOBIN 8.7 GM/dL (10.7-15.3); LYMPH % 26.9 % (8-40); MCHC 30.9 g/dl (32.0-36.0); MEAN CELL VOLUME 74.5 fl (80-96); MEAN PLT VOLUME 7.9 fl (7.5-11.1); MONO % 16.9 % (3.8-10.2); NEUT % 52.1 % (42.8-82.8); PLATELET COUNT 439 10^3/uL (134-434); RBC 3.77 M/mm3 (3.60-5.2); RDW 21.8 % (11.6-15.6); WHITE BLOOD COUNT 5.3 K/mm3 (4.0-10.0)
[2023-08-23 09:36] LABS: POTASSIUM 4.9 mmol/L (3.5-5.1)
[2023-08-23 09:38] LABS: CALCIUM 8.2 mg/dL (8.5-10.1)
[2023-08-23 09:39] LABS: ALBUMIN 3.2 g/dl (3.4-5.0); BLOOD UREA NITROGEN 11.8 mg/dL (7-18)
[2023-08-23 09:41] LABS: BILIRUBIN,DIRECT 0.1 mg/dL (0.0-0.2)
[2023-08-23 09:42] LABS: CREATININE 0.7 mg/dL (0.55-1.3)
[2023-08-23 09:43] LABS: TOT PROT 6.1 g/dl (6.4-8.2)
[2023-08-23 09:44] LABS: BILIRUBIN,TOTAL 0.3 mg/dL (0.2-1)
[2023-08-23] MEDS: FOSAPREPITANT DIMEGLUMINE 150 MG in SODIUM CHLORIDE 145 ML IVPB ONE (10:02)
[2023-08-23] MEDS: DEXAMETHASONE SODIUM PHOSPHATE 10 MG in SODIUM CHLORIDE 50 ML IVPB ONE (10:42)
[2023-08-23 10:54] LABS: ANISOCYTOSIS 2+; MACROCYTOSIS 0
[2023-08-23] MEDS: PALONOSETRON HCL 0.25 MG/5 ML VIAL IVPUSH ONE (11:03)
[2023-08-23] MEDS: PEMBROLIZUMAB IV ONE (11:08)
[2023-08-23] MEDS: SODIUM CHLORIDE IV ONE ×3 (11:08→12:28)
[2023-08-23] MEDS: GEMCITABINE HCL IV ONE (11:51)
[2023-08-23] MEDS: CARBOPLATIN IV ONE (12:28)
[2023-08-23 13:15] VITALS: BP 156/69; PULSE 85
== END 2023-08-23 13:39 | disposition home or self-care (01) ==
LOC: JONCCHEMO 08:22 → J7W 08:23 → JONCCHEMO 13:39
PROVIDERS: ATTEND Internal Medicine Hematology & Oncology
DX: Z51.11 Encounter for antineoplastic chemotherapy (principal); C50.919 Malignant neoplasm of unspecified site of unspecified female breast; C78.01 Secondary malignant neoplasm of right lung; C78.02 Secondary malignant neoplasm of left lung
CPT/HCPCS: 36415; 80048; 80076; 85025; 96367; 96375; 96413; 96417; J1453; J2469; J9271

== ENCOUNTER 2023-08-30 07:53 | Day surgery (SDC) | payer OTHER ==
[2023-08-30 08:19] LABS: BASO % 1.3 % (0-2.0); EOS % 2.1 % (0-4.5); HEMATOCRIT 26.6 % (32.4-45.2); HEMOGLOBIN 8.3 GM/dL (10.7-15.3); LYMPH % 22.8 % (8-40); MCH 22.9 pg (25.7-33.7); MCHC 31.1 g/dl (32.0-36.0); MEAN CELL VOLUME 73.5 fl (80-96); MEAN PLT VOLUME 7.2 fl (7.5-11.1); MONO % 7.8 % (3.8-10.2); PLATELET COUNT 305 10^3/uL (134-434); RBC 3.62 M/mm3 (3.60-5.2); RDW 20.9 % (11.6-15.6); WHITE BLOOD COUNT 5.8 K/mm3 (4.0-10.0)
[2023-08-30 08:45] LABS: POTASSIUM 4.5 mmol/L (3.5-5.1)
[2023-08-30 08:47] LABS: ALBUMIN 3.3 g/dl (3.4-5.0); BLOOD UREA NITROGEN 8.7 mg/dL (7-18); CALCIUM 8.3 mg/dL (8.5-10.1)
[2023-08-30 08:49] LABS: BILIRUBIN,DIRECT 0.1 mg/dL (0.0-0.2); CREATININE 0.7 mg/dL (0.55-1.3)
[2023-08-30 08:51] LABS: BILIRUBIN,TOTAL 0.2 mg/dL (0.2-1); TOT PROT 6.1 g/dl (6.4-8.2)
[2023-08-30 09:15] LABS: ANISOCYTOSIS 3+; MACROCYTOSIS 0
[2023-08-30] MEDS: GRANISETRON HCL/PF 1 MG in SODIUM CHLORIDE 50 ML IVPB ONE (10:11)
[2023-08-30] MEDS: SODIUM CHLORIDE IV ONE (10:34)
[2023-08-30] MEDS: GEMCITABINE HCL IV ONE (10:34)
[2023-08-30 14:45] VITALS: BP 169/76; PULSE 84; RESP 18; TEMP 98.1
== END 2023-08-30 11:42 | disposition home or self-care (01) ==
LOC: JONCCHEMO 07:53 → J7W 07:54 → JONCCHEMO 11:42
PROVIDERS: ATTEND Internal Medicine Hematology & Oncology
DX: Z51.11 Encounter for antineoplastic chemotherapy (principal); C50.919 Malignant neoplasm of unspecified site of unspecified female breast; C78.01 Secondary malignant neoplasm of right lung; C78.02 Secondary malignant neoplasm of left lung
CPT/HCPCS: 36415; 80048; 80076; 85025; 96367; 96413

== ENCOUNTER 2023-09-03 20:48 | Inpatient (IN) | payer OTHER ==
[2023-09-03 21:02] VITALS: BMI 31.8
[2023-09-03] MEDS ORDERED: ACETAMINOPHEN INJECTION 100 ML IVPB ONE (21:45)
[2023-09-03 21:49] LABS: BASO % 0.3 % (0-2.0); EOS % 1.2 % (0-4.5); HEMATOCRIT 23.7 % (32.4-45.2); HEMOGLOBIN 7.5 GM/dL (10.7-15.3); LYMPH % 5.5 % (8-40); MCH 22.9 pg (25.7-33.7); MCHC 31.5 g/dl (32.0-36.0); MEAN CELL VOLUME 72.9 fl (80-96); MEAN PLT VOLUME 8.4 fl (7.5-11.1); MONO % 2.2 % (3.8-10.2); NEUT % 90.8 % (42.8-82.8); PLATELET COUNT 118 10^3/uL (134-434); RBC 3.26 M/mm3 (3.60-5.2); RDW 22.4 % (11.6-15.6); WHITE BLOOD COUNT 5.8 K/mm3 (4.0-10.0)
[2023-09-03 21:50] LABS: VENOUS BASE EXCESS -0.7 mmol/L (-2-2); VENOUS O2 SATURATION 88.1 % (70-80); VENOUS PCO2 36.6 mmHg (38-52); VENOUS PH 7.426 (7.310-7.410)
[2023-09-03] MEDS: SODIUM CHLORIDE 0.9% 500 ML INFUS.BAG IV ONE (21:50)
[2023-09-03] MEDS: ACETAMINOPHEN 1000 MG/100 ML BAG IVPB ONE (21:50)
[2023-09-03 21:57] LABS: INR 1.19 (0.83-1.09); PROTHROMBIN TIME (PATIENT) 13.8 SEC (9.7-13.0)
[2023-09-03] MEDS ORDERED: HYDROmorphone HCl 2 MG/ML VIAL ONE (21:57)
[2023-09-03] MEDS ORDERED: FAMOTIDINE 20 MG/50 ML IVPB 20 MG/50 ML MG IVPB ONE (21:57)
[2023-09-03] MEDS: HYDROmorphone HCl 2 MG/ML VIAL IVPUSH ONE (21:58)
[2023-09-03] MEDS: FAMOTIDINE 20 MG/50 ML IVPB 20 MG/50 ML MG IVPB ONE (21:59)
[2023-09-03 22:00] LABS: ACTIVATED PTT 29.7 SECONDS (25.2-36.5)
[2023-09-03 22:08] LABS: POTASSIUM 5.6 mmol/L (3.5-5.1)
[2023-09-03 22:10] LABS: CALCIUM 8.1 mg/dL (8.5-10.1)
[2023-09-03 22:11] LABS: ALBUMIN 3.1 g/dl (3.4-5.0); BLOOD UREA NITROGEN 8.9 mg/dL (7-18)
[2023-09-03 22:14] LABS: CREATININE 0.7 mg/dL (0.55-1.3)
[2023-09-03 22:15] LABS: TOT PROT 6.3 g/dl (6.4-8.2)
[2023-09-03 22:16] LABS: BILIRUBIN,TOTAL 0.4 mg/dL (0.2-1)
[2023-09-03] MEDS ORDERED: PIPERACILLIN/TAZOB 4.5 GM 4.5 GM/100 ML BAG IVPB ONE (23:42)
[2023-09-03] MEDS: PIPERACILLIN/TAZOBACTAM 4.5 GM VIAL IVPB ONE (23:44)
[2023-09-03 23:49] LABS: ANISOCYTOSIS 3+; MACROCYTOSIS 0
[2023-09-04] MEDS ORDERED: HYDROmorphone HCl 2 MG/ML VIAL ONE
[2023-09-04] MEDS: HYDROmorphone HCl 2 MG/ML VIAL IVPUSH ONE (00:06)
[2023-09-04] MEDS: SODIUM CHLORIDE 0.9% 500 ML INFUS.BAG IV ONE (00:06)
[2023-09-04 00:58] LABS: POTASSIUM 3.9 mmol/L (3.5-5.1)
[2023-09-04 01:00] LABS: ALBUMIN 2.7 g/dl (3.4-5.0); BLOOD UREA NITROGEN 7.8 mg/dL (7-18); CALCIUM 7.3 mg/dL (8.5-10.1)
[2023-09-04 01:03] LABS: CREATININE 0.7 mg/dL (0.55-1.3)
[2023-09-04 01:05] LABS: BILIRUBIN,TOTAL 0.3 mg/dL (0.2-1); TOT PROT 5.4 g/dl (6.4-8.2)
[2023-09-04 02:09] LABS: EPI CELLS 5 /uL (0-25.1); HYALINE CASTS 0 /uL (0-3.1); URINE APPEARANCE TURBID; URINE BACTERIA 4057 /uL (0-1359); URINE BILIRUBIN NEGATIVE (NEGATIVE); URINE COLOR YELLOW; URINE GLUCOSE (UA) 1+ (NEGATIVE); URINE KETONE NEGATIVE (NEGATIVE); URINE LEUK ESTERASE 3+ (NEGATIVE); URINE NITRITE POSITIVE (NEGATIVE); URINE PROTEIN TRACE (NEGATIVE); URINE RBC 62 /uL (0-23.9); URINE UROBILINOGEN 0.2 mg/dL (0.2-1.0); URINE WBC 4276 /uL (0-25.8)
[2023-09-04] MEDS ORDERED: VANCOMYCIN 1 GRAM (PRE-DOCKED) 1,000 MG/250 ML BAG IVPB ONE (02:15)
[2023-09-04] MEDS: VANCOMYCIN 1,000 MG in DEXTROSE 5%-WATER - 250 ML IVPB ONE (02:39)
[2023-09-04] MEDS ORDERED: ACETAMINOPHEN 1000 MG/100 ML BAG IVPB PRN (05:33)
[2023-09-04] MEDS: SODIUM CHLORIDE 1,000 ML IV SCH (06:21)
[2023-09-04] MEDS: PIPERACILLIN/TAZOB 3.375 GM 3.375 GM in DEXTROSE 5%-WATER - 50 ML IVPB SCH ×2 (06:25→16:37)
[2023-09-04] MEDS: INSULIN ASPART SLIDING SCALE (NOVOLOG) 1 VIAL SQ SCH ×2 (06:38→11:31)
[2023-09-04 08:25] LABS: BASO % 0.4 % (0-2.0); EOS % 1.1 % (0-4.5); HEMOGLOBIN 7.5 GM/dL (10.7-15.3); LYMPH % 8.1 % (8-40); MCH 22.8 pg (25.7-33.7); MCHC 31.5 g/dl (32.0-36.0); MEAN CELL VOLUME 72.3 fl (80-96); MEAN PLT VOLUME 8.4 fl (7.5-11.1); MONO % 2.3 % (3.8-10.2); NEUT % 88.1 % (42.8-82.8); PLATELET COUNT 98 10^3/uL (134-434); RBC 3.31 M/mm3 (3.60-5.2); RDW 21.4 % (11.6-15.6); RETICULOCYTES 1.02 % (0.5-1.5); WHITE BLOOD COUNT 3.7 K/mm3 (4.0-10.0)
[2023-09-04 08:46] LABS: POTASSIUM 4.1 mmol/L (3.5-5.1)
[2023-09-04 08:53] LABS: BLOOD UREA NITROGEN 7.4 mg/dL (7-18); CALCIUM 7.6 mg/dL (8.5-10.1)
[2023-09-04 08:54] LABS: ALBUMIN 2.9 g/dl (3.4-5.0); MAGNESIUM 1.7 mg/dL (1.8-2.4)
[2023-09-04] MEDS: ONDANSETRON 4 MG/2 ML VIAL IVPB PRN (08:55)
[2023-09-04 08:57] LABS: CREATININE 0.6 mg/dL (0.55-1.3)
[2023-09-04 08:58] LABS: BILIRUBIN,TOTAL 0.6 mg/dL (0.2-1); TOT PROT 6.3 g/dl (6.4-8.2)
[2023-09-04] MEDS: ACETAMINOPHEN 1000 MG/100 ML BAG IVPB PRN (09:47)
[2023-09-04] MEDS: MAGNESIUM 2GM/50ML STERILE WATER IVPB IVPB ONE (09:47)
[2023-09-04] MEDS: ENOXAPARIN NA (PORCINE) 40 MG/0.4 ML DISP.SYRIN SQ SCH (09:54)
[2023-09-04] MEDS: HYDROmorphone HCl 2 MG/ML VIAL IVPUSH PRN (09:56)
[2023-09-04] MEDS: SODIUM CHLORIDE 0.45% 1,000 ML IV SCH (10:23)
[2023-09-04] MEDS ORDERED: VANCOMYCIN/WATER FOR INJ (PEG) 1,000 MG/200 ML BAG IVPB SCH (14:00)
[2023-09-04] MEDS: VANCOMYCIN/WATER FOR INJ (PEG) 1,000 MG/200 ML BAG IVPB SCH (14:16)
[2023-09-04] MEDS ORDERED: VANCOMYCIN/WATER 1250 MG 1,250 MG/250 ML BAG IVPB SCH (15:00)
[2023-09-05 07:01] LABS: HEMATOCRIT 22.3 % (32.4-45.2); MCH 22.8 pg (25.7-33.7); MCHC 31.3 g/dl (32.0-36.0); MEAN CELL VOLUME 72.8 fl (80-96); MEAN PLT VOLUME 8.2 fl (7.5-11.1); PLATELET COUNT 72 10^3/uL (134-434); RBC 3.06 M/mm3 (3.60-5.2); RDW 20.6 % (11.6-15.6)
[2023-09-05 07:15] LABS: WHITE BLOOD COUNT 1.4 K/mm3 (4.0-10.0)
[2023-09-05 07:18] LABS: POTASSIUM 3.9 mmol/L (3.5-5.1)
[2023-09-05 07:20] LABS: CALCIUM 7.7 mg/dL (8.5-10.1)
[2023-09-05 07:21] LABS: ALBUMIN 2.6 g/dl (3.4-5.0)
[2023-09-05 07:24] LABS: CREATININE 0.5 mg/dL (0.55-1.3); PHOSPHOROUS 2.8 mg/dL (2.5-4.9)
[2023-09-05 07:26] LABS: BILIRUBIN,TOTAL 0.4 mg/dL (0.2-1); TOT PROT 5.6 g/dl (6.4-8.2)
[2023-09-05 08:42] LABS: ANISOCYTOSIS 0; MACROCYTOSIS 0
[2023-09-05] MEDS: TBO-FILGRASTIM 300 MCG/0.5 ML DISP.SYRINGE SQ ONE (09:43)
[2023-09-05] MEDS: ACETAMINOPHEN 1000 MG/100 ML BAG IVPB ONE (14:47)
[2023-09-05] MEDS: SODIUM CHLORIDE 1,000 ML IV SCH (14:48)
[2023-09-05] MEDS ORDERED: VANCOMYCIN/WATER 1250 MG 1,250 MG/250 ML BAG IVPB SCH (15:00)
[2023-09-05] MEDS ORDERED: BISACODYL 5 MG TABLET.DR (FP) PO PRN (15:26)
[2023-09-05] MEDS ORDERED: MAGNESIUM HYDROX 2400MG/30ML ORAL SUSPENSION 30 ML CUP PO PRN (15:29)
[2023-09-05] MEDS: MAGNESIUM HYDROX 2400MG/30ML ORAL SUSPENSION 30 ML CUP PO ONE (16:58)
[2023-09-05] MEDS: DOCUSATE SODIUM 100 MG CAPSULE (FP) PO ONE (16:58)
[2023-09-05] MEDS: DOCUSATE SODIUM 100 MG CAPSULE (FP) PO SCH (21:52)
[2023-09-05] MEDS ORDERED: DOCUSATE SODIUM 100 MG CAPSULE (FP) PO SCH (22:00)
[2023-09-06 08:00] LABS: HEMATOCRIT 22.9 % (32.4-45.2); HEMOGLOBIN 7.2 GM/dL (10.7-15.3); MCH 22.8 pg (25.7-33.7); MCHC 31.4 g/dl (32.0-36.0); MEAN CELL VOLUME 72.7 fl (80-96); MEAN PLT VOLUME 8.1 fl (7.5-11.1); PLATELET COUNT 63 10^3/uL (134-434); RBC 3.15 M/mm3 (3.60-5.2); WHITE BLOOD COUNT 6.8 K/mm3 (4.0-10.0)
[2023-09-06 08:03] LABS: POTASSIUM 3.8 mmol/L (3.5-5.1)
[2023-09-06 08:08] LABS: BLOOD UREA NITROGEN 5.8 mg/dL (7-18)
[2023-09-06 08:09] LABS: ALBUMIN 2.6 g/dl (3.4-5.0); MAGNESIUM 1.8 mg/dL (1.8-2.4)
[2023-09-06 08:11] LABS: CREATININE 0.6 mg/dL (0.55-1.3); PHOSPHOROUS 2.7 mg/dL (2.5-4.9)
[2023-09-06 08:13] LABS: BILIRUBIN,TOTAL 0.5 mg/dL (0.2-1); TOT PROT 5.8 g/dl (6.4-8.2)
[2023-09-06 10:36] VITALS: PULSE 125; RESP 20
[2023-09-06 10:37] VITALS: BP 152/79; TEMP 99.1
== END 2023-09-06 12:00 | disposition left against medical advice (07) | DRG 720 ==
LOC: JER 20:48 → JERBED 23:57 → J4S 09-04 04:36
PROVIDERS: ADMIT Internal Medicine; ATTEND Internal Medicine
DX: A41.9 Sepsis, unspecified organism (principal); I10 Essential (primary) hypertension; J96.01 Acute respiratory failure with hypoxia; Z79.4 Long term (current) use of insulin; C50.919 Malignant neoplasm of unspecified site of unspecified female breast; M54.2 Cervicalgia; E11.65 Type 2 diabetes mellitus with hyperglycemia; D53.9 Nutritional anemia, unspecified; N39.0 Urinary tract infection, site not specified; D61.818 Other pancytopenia; J18.9 Pneumonia, unspecified organism; E78.5 Hyperlipidemia, unspecified; C78.00 Secondary malignant neoplasm of unspecified lung; K59.09 Other constipation
CPT/HCPCS: 0241U-QW; 36415; 71045-TC-FY; 74177-TC; 80053; 81003; 82272; 82728; 82803; 82962; 83036; 83540; 83550; 83605; 83735; 84100; 84439; 84443; 84466; 84484; 85025; 85027; 85045; 85610; 85730; 86850; 86900; 86901; 87040; 87086; 87899; 93005; 93010; 94010; 99285-25; J0131; J1447; Q9967

== ENCOUNTER 2023-09-13 08:18 | Day surgery (SDC) | payer OTHER ==
[2023-09-13 09:21] LABS: HEMATOCRIT 23.7 % (32.4-45.2); HEMOGLOBIN 7.4 GM/dL (10.7-15.3); MCHC 31.3 g/dl (32.0-36.0); MEAN CELL VOLUME 76.8 fl (80-96); MEAN PLT VOLUME 8.2 fl (7.5-11.1); PLATELET COUNT 278 10^3/uL (134-434); RBC 3.09 M/mm3 (3.60-5.2); RDW 26.4 % (11.6-15.6); WHITE BLOOD COUNT 6.7 K/mm3 (4.0-10.0)
[2023-09-13 09:44] LABS: POTASSIUM 4.6 mmol/L (3.5-5.1)
[2023-09-13 09:47] LABS: ALBUMIN 2.7 g/dl (3.4-5.0); BLOOD UREA NITROGEN 6.9 mg/dL (7-18); CALCIUM 8.3 mg/dL (8.5-10.1)
[2023-09-13 09:50] LABS: BILIRUBIN,DIRECT 0.1 mg/dL (0.0-0.2); CREATININE 0.6 mg/dL (0.55-1.3)
[2023-09-13 09:52] LABS: BILIRUBIN,TOTAL 0.3 mg/dL (0.2-1); TOT PROT 6.4 g/dl (6.4-8.2)
[2023-09-13] MEDS: FOSAPREPITANT DIMEGLUMINE 150 MG in SODIUM CHLORIDE 145 ML IVPB ONE (11:00)
[2023-09-13] MEDS: PALONOSETRON HCL 0.25 MG/5 ML VIAL IVPUSH ONE (11:35)
[2023-09-13] MEDS: DEXAMETHASONE SODIUM PHOSPHATE 10 MG in SODIUM CHLORIDE 50 ML IVPB ONE (11:43)
[2023-09-13] MEDS: SODIUM CHLORIDE IV ONE ×3 (12:01→13:17)
[2023-09-13] MEDS: PEMBROLIZUMAB IV ONE (12:01)
[2023-09-13] MEDS: GEMCITABINE HCL IV ONE (12:38)
[2023-09-13] MEDS: CARBOPLATIN IV ONE (13:17)
[2023-09-13 17:20] VITALS: RESP 18; TEMP 98.1
[2023-09-13 17:24] VITALS: BP 146/71; PULSE 60
== END 2023-09-13 14:20 | disposition home or self-care (01) ==
LOC: JONCCHEMO 08:18 → J7W 08:19 → JONCCHEMO 14:20
PROVIDERS: ATTEND Internal Medicine Hematology & Oncology
DX: Z51.11 Encounter for antineoplastic chemotherapy (principal); C50.919 Malignant neoplasm of unspecified site of unspecified female breast; C78.01 Secondary malignant neoplasm of right lung; C78.02 Secondary malignant neoplasm of left lung
CPT/HCPCS: 36415; 80048; 80076; 82607; 82728; 82746; 83540; 83550; 84439; 84443; 85025; 96367; 96374; 96413; 96417; J1453; J2469; J9271

== ENCOUNTER 2023-09-21 13:16 | Day surgery (SDC) | payer OTHER ==
[2023-09-21] MEDS: PEGFILGRASTIM-CBQV (UDENYCA) 6 MG/0.6 ML SYRINGE SQ ONE (13:56)
[2023-09-21 15:19] VITALS: BP 165/71; PULSE 96; RESP 18; TEMP 98.2
== END 2023-09-21 14:15 | disposition home or self-care (01) ==
LOC: JONCCHEMO 13:16 → J7W 14:01 → JONCCHEMO 14:15
PROVIDERS: ATTEND Internal Medicine Hematology & Oncology
PROC: 3E013GC Introduction of Other Therapeutic Substance into Subcutaneous Tissue, Percutaneous Approach (ICD-10-PCS; principal; 2023-09-21)
DX: C50.919 Malignant neoplasm of unspecified site of unspecified female breast (principal); C78.01 Secondary malignant neoplasm of right lung; C78.02 Secondary malignant neoplasm of left lung; Z76.89 Persons encountering health services in other specified circumstances
CPT/HCPCS: 96372; Q5111

== ENCOUNTER 2023-10-04 07:59 | Day surgery (SDC) | payer OTHER ==
[2023-10-04 08:35] LABS: HEMATOCRIT 25.2 % (32.4-45.2); HEMOGLOBIN 7.8 GM/dL (10.7-15.3); MCH 24.9 pg (25.7-33.7); MCHC 30.7 g/dl (32.0-36.0); MEAN CELL VOLUME 80.9 fl (80-96); MEAN PLT VOLUME 7.6 fl (7.5-11.1); PLATELET COUNT 151 10^3/uL (134-434); RBC 3.12 M/mm3 (3.60-5.2); WHITE BLOOD COUNT 23.3 K/mm3 (4.0-10.0)
[2023-10-04 08:43] LABS: CHLORIDE 101 mmol/L (98-107); POTASSIUM 4.5 mmol/L (3.5-5.1); SODIUM 132 mmol/L (136-145)
[2023-10-04 08:45] LABS: ALBUMIN 3.1 g/dl (3.4-5.0); ANION GAP 2 mmol/L (4-13); BLOOD UREA NITROGEN 7.2 mg/dL (7-18); CALCIUM 8.3 mg/dL (8.5-10.1); CO2 29 mmol/L (21-32); GLUCOSE,RANDOM 278 mg/dL (74-106)
[2023-10-04 08:48] LABS: BILIRUBIN,DIRECT 0.1 mg/dL (0.0-0.2); CREATININE 0.6 mg/dL (0.55-1.3); SGOT/AST 12 U/L (15-37); SGPT/ALT 15 U/L (13-61)
[2023-10-04 08:50] LABS: BILIRUBIN,TOTAL 0.3 mg/dL (0.2-1); TOT PROT 6.7 g/dl (6.4-8.2)
[2023-10-04 08:51] LABS: ALK PHOS 197 U/L (45-117)
[2023-10-04 09:46] LABS: ANISOCYTOSIS 3+; MACROCYTOSIS 0
[2023-10-04] MEDS: FOSAPREPITANT DIMEGLUMINE 150 MG in SODIUM CHLORIDE 145 ML IVPB ONE (10:29)
[2023-10-04] MEDS: DEXAMETHASONE SODIUM PHOSPHATE 10 MG in SODIUM CHLORIDE 50 ML IVPB ONE (11:16)
[2023-10-04] MEDS: PALONOSETRON HCL 0.25 MG/5 ML VIAL IVPUSH ONE (11:36)
[2023-10-04] MEDS: SODIUM CHLORIDE IV ONE ×3 (11:39→13:01)
[2023-10-04] MEDS: PEMBROLIZUMAB IV ONE (11:39)
[2023-10-04] MEDS: GEMCITABINE HCL IV ONE (12:22)
[2023-10-04] MEDS: CARBOPLATIN IV ONE (13:01)
[2023-10-04 16:30] VITALS: BP 149/69; PULSE 78; RESP 20; TEMP 98.4
== END 2023-10-04 14:15 | disposition home or self-care (01) ==
LOC: JONCCHEMO 07:59 → J7W 07:59 → JONCCHEMO 14:15
PROVIDERS: ATTEND Internal Medicine Hematology & Oncology
DX: Z51.11 Encounter for antineoplastic chemotherapy (principal); C50.919 Malignant neoplasm of unspecified site of unspecified female breast; C79.01 Secondary malignant neoplasm of right kidney and renal pelvis; C79.02 Secondary malignant neoplasm of left kidney and renal pelvis
CPT/HCPCS: 36415; 80048; 80076; 85025; 96367; 96375; 96413; 96417; J1453; J2469; J9271

== ENCOUNTER 2023-10-11 08:29 | Day surgery (SDC) | payer OTHER ==
[2023-10-11 09:21] LABS: BASO % 0.9 % (0-2.0); EOS % 0.9 % (0-4.5); HEMATOCRIT 21.5 % (32.4-45.2); LYMPH % 20.8 % (8-40); MCH 25.9 pg (25.7-33.7); MCHC 32.6 g/dl (32.0-36.0); MEAN CELL VOLUME 79.5 fl (80-96); MEAN PLT VOLUME 7.9 fl (7.5-11.1); MONO % 6.2 % (3.8-10.2); NEUT % 71.2 % (42.8-82.8); PLATELET COUNT 98 10^3/uL (134-434); RDW 28.8 % (11.6-15.6); WHITE BLOOD COUNT 3.3 K/mm3 (4.0-10.0)
[2023-10-11 09:38] LABS: CHLORIDE 102 mmol/L (98-107); POTASSIUM 4.5 mmol/L (3.5-5.1); SODIUM 134 mmol/L (136-145)
[2023-10-11 09:40] LABS: CALCIUM 8.4 mg/dL (8.5-10.1)
[2023-10-11 09:41] LABS: ANION GAP 4 mmol/L (4-13); BLOOD UREA NITROGEN 6.2 mg/dL (7-18); CO2 28 mmol/L (21-32); GLUCOSE,RANDOM 248 mg/dL (74-106)
[2023-10-11 09:43] LABS: BILIRUBIN,DIRECT 0.1 mg/dL (0.0-0.2)
[2023-10-11 09:44] LABS: CREATININE 0.6 mg/dL (0.55-1.3); SGOT/AST 20 U/L (15-37); SGPT/ALT 29 U/L (13-61)
[2023-10-11 09:45] LABS: BILIRUBIN,TOTAL 0.2 mg/dL (0.2-1); TOT PROT 6.7 g/dl (6.4-8.2)
[2023-10-11 09:55] LABS: ALK PHOS 121 U/L (45-117)
[2023-10-11 10:12] LABS: ANISOCYTOSIS 3+; MACROCYTOSIS 0
[2023-10-11] MEDS: GRANISETRON HCL/PF 1 MG in SODIUM CHLORIDE 50 ML IVPB ONE (10:17)
[2023-10-11] MEDS: SODIUM CHLORIDE IV ONE (10:37)
[2023-10-11] MEDS: GEMCITABINE HCL IV ONE (10:37)
[2023-10-11 13:46] VITALS: RESP 16; TEMP 98.3
[2023-10-11 13:50] VITALS: BP 143/68; PULSE 77
== END 2023-10-11 11:30 | disposition home or self-care (01) ==
LOC: JONCCHEMO 08:29 → J7W 08:30 → JONCCHEMO 11:30
PROVIDERS: ATTEND Internal Medicine Hematology & Oncology
DX: Z51.11 Encounter for antineoplastic chemotherapy (principal); C50.919 Malignant neoplasm of unspecified site of unspecified female breast; C79.01 Secondary malignant neoplasm of right kidney and renal pelvis; C79.02 Secondary malignant neoplasm of left kidney and renal pelvis
CPT/HCPCS: 36415; 80048; 80076; 85025; 96375; 96413

== ENCOUNTER 2023-10-12 13:43 | Day surgery (SDC) | payer OTHER ==
[2023-10-12] MEDS: PEGFILGRASTIM-CBQV (UDENYCA) 6 MG/0.6 ML SYRINGE SQ ONE (13:52)
[2023-10-12 17:47] VITALS: BP 109/53; PULSE 83; RESP 20; TEMP 98
== END 2023-10-12 14:00 | disposition home or self-care (01) ==
LOC: JONCCHEMO 13:43
PROVIDERS: ATTEND Internal Medicine Hematology & Oncology
PROC: 3E013GC Introduction of Other Therapeutic Substance into Subcutaneous Tissue, Percutaneous Approach (ICD-10-PCS; principal; 2023-10-12)
DX: C50.919 Malignant neoplasm of unspecified site of unspecified female breast (principal); Z76.89 Persons encountering health services in other specified circumstances
CPT/HCPCS: 96372; Q5111

== ENCOUNTER 2023-10-23 18:45 | Inpatient (IN) | payer OTHER ==
[2023-10-23 19:37] LABS: VENOUS O2 SATURATION 80.1 % (70-80); VENOUS PCO2 37.7 mmHg (38-52); VENOUS PH 7.396 (7.310-7.410)
[2023-10-23] MEDS ORDERED: CEFEPIME 2 GM/100 ML BAG IVPB ONE (19:38)
[2023-10-23] MEDS ORDERED: ACETAMINOPHEN INJECTION 100 ML IVPB ONE (19:38)
[2023-10-23 19:40] LABS: HEMATOCRIT 19.3 % (32.4-45.2); MCH 26.3 pg (25.7-33.7); MCHC 31.5 g/dl (32.0-36.0); MEAN CELL VOLUME 83.7 fl (80-96); MEAN PLT VOLUME 7.5 fl (7.5-11.1); PLATELET COUNT 241 10^3/uL (134-434); RBC 2.31 M/mm3 (3.60-5.2)
[2023-10-23] MEDS: SODIUM CHLORIDE 0.9% 1000 ML INFUS.BAG IV STA (19:46)
[2023-10-23] MEDS: ACETAMINOPHEN 1000 MG/100 ML BAG IVPB ONE (19:46)
[2023-10-23 19:48] LABS: INR 1.2 (0.83-1.09); PROTHROMBIN TIME (PATIENT) 13.7 SEC (9.7-13.0)
[2023-10-23 19:51] LABS: ACTIVATED PTT 31.1 SECONDS (25.2-36.5)
[2023-10-23 19:52] LABS: WHITE BLOOD COUNT 37.6 K/mm3 (4.0-10.0)
[2023-10-23 19:53] LABS: HEMOGLOBIN 6.1 GM/dL (10.7-15.3); POTASSIUM 4.8 mmol/L (3.5-5.1)
[2023-10-23 19:56] LABS: CALCIUM 8.4 mg/dL (8.5-10.1)
[2023-10-23 19:57] LABS: ALBUMIN 3.3 g/dl (3.4-5.0); BLOOD UREA NITROGEN 9.1 mg/dL (7-18)
[2023-10-23] MEDS ORDERED: ALBUTEROL SO4 2.5/IPRATROPIUM 0.5 INH SOL 3 ML VIAL.NEB. NEB ONE ×2 (19:57→22:21)
[2023-10-23 20:00] LABS: CREATININE 0.7 mg/dL (0.55-1.3)
[2023-10-23 20:01] LABS: BILIRUBIN,TOTAL 0.7 mg/dL (0.2-1); TOT PROT 7.2 g/dl (6.4-8.2)
[2023-10-23] MEDS: ALBUTEROL SO4 2.5/IPRATROPIUM 0.5 INH SOL 3 ML VIAL.NEB. NEB ONE ×2 (20:01→22:28)
[2023-10-23 20:11] LABS: EPI CELLS 9 /uL (0-25.1); HYALINE CASTS 2 /uL (0-3.1); PH,URINE 7.5 (5.0-8.0); URINE APPEARANCE CLEAR; URINE BACTERIA 145 /uL (0-1359); URINE BILIRUBIN NEGATIVE (NEGATIVE); URINE COLOR YELLOW; URINE GLUCOSE (UA) NEGATIVE (NEGATIVE); URINE KETONE NEGATIVE (NEGATIVE); URINE LEUK ESTERASE 2+ (NEGATIVE); URINE NITRITE NEGATIVE (NEGATIVE); URINE PROTEIN TRACE (NEGATIVE); URINE RBC 15 /uL (0-23.9); URINE WBC 679 /uL (0-25.8)
[2023-10-23] MEDS: CEFEPIME 2 GM in DEXTROSE 5%-WATER - 100 ML IVPB ONE (20:25)
[2023-10-23 20:50] LABS: ANISOCYTOSIS 3+; MACROCYTOSIS 0; TEAR DROP CELLS 1+
[2023-10-23] MEDS: VANCOMYCIN 1,500 MG in DEXTROSE 5%-WATER - 500 ML IVPB ONE (21:20)
[2023-10-23] MEDS: guaiFENesin/D-METHORPHAN TAB.ER.12H PO SCH (23:00)
[2023-10-23] MEDS ORDERED: CODEINE PO PRN (23:44)
[2023-10-23] MEDS ORDERED: [UNRECOGNIZED DRUG - OTHER] PO PRN (23:44)
[2023-10-23] MEDS ORDERED: ACETAMIN PO PRN (23:44)
[2023-10-23] MEDS ORDERED: BUTALBIT PO PRN (23:44)
[2023-10-23] MEDS ORDERED: CAFF PO PRN (23:44)
[2023-10-24 00:52] LABS: MCH 26.2 pg (25.7-33.7); MCHC 31.5 g/dl (32.0-36.0); MEAN CELL VOLUME 83.3 fl (80-96); MEAN PLT VOLUME 7.5 fl (7.5-11.1); PLATELET COUNT 235 10^3/uL (134-434); RBC 2.28 M/mm3 (3.60-5.2); RDW 30.3 % (11.6-15.6)
[2023-10-24 00:56] LABS: WHITE BLOOD COUNT 33.9 K/mm3 (4.0-10.0)
[2023-10-24 01:16] LABS: POTASSIUM 4.2 mmol/L (3.5-5.1)
[2023-10-24 01:18] LABS: CALCIUM 8.1 mg/dL (8.5-10.1)
[2023-10-24 01:19] LABS: BLOOD UREA NITROGEN 7.5 mg/dL (7-18); MAGNESIUM 1.8 mg/dL (1.8-2.4)
[2023-10-24 01:22] LABS: CREATININE 0.6 mg/dL (0.55-1.3); PHOSPHOROUS 3.1 mg/dL (2.5-4.9)
[2023-10-24 01:23] LABS: BILIRUBIN,TOTAL 0.5 mg/dL (0.2-1); TOT PROT 6.6 g/dl (6.4-8.2)
[2023-10-24 01:33] VITALS: BMI 31.9
[2023-10-24 01:36] LABS: N-TERMINAL BNP 314.4 pg/ml (5-125)
[2023-10-24] MEDS ORDERED: QUEtiapine FUMARATE 100 MG TABLET (FP) ONE ×3 (01:41→21:07)
[2023-10-24 01:49] LABS: N-TERMINAL BNP 345.8 pg/ml (5-125)
[2023-10-24] MEDS: SODIUM CHLORIDE 1,000 ML IV SCH (02:01)
[2023-10-24] MEDS: METOPROLOL TARTRATE 50 MG TABLET (FP) PO SCH (02:01)
[2023-10-24] MEDS: ACETAMINOPHEN 1000 MG/100 ML BAG IVPB SCH (02:01)
[2023-10-24] MEDS: INSULIN (LEVEMIR) 100 UNITS/ML UNITS SQ ONE (02:02)
[2023-10-24] MEDS: QUEtiapine FUMARATE 300 MG TABLET PO SCH (02:02)
[2023-10-24] MEDS: AMITRIPTYLINE HCL 75 MG TABLET PO SCH (02:04)
[2023-10-24] MEDS: ROSUVASTATIN CA 5 MG TABLET PO SCH (02:04)
[2023-10-24] MEDS ORDERED: CEFEPIME HCL 2 GM VIAL (RESTRICTED TO ID) IVPB SCH (04:00)
[2023-10-24] MEDS: CEFEPIME 2 GM in DEXTROSE 5%-WATER 100 ML IVPB SCH (06:06)
[2023-10-24] MEDS: INSULIN ASPART SLIDING SCALE (NOVOLOG) 1 VIAL SQ SCH (06:06)
[2023-10-24] MEDS: ALBUTEROL SO4 2.5/IPRATROPIUM 0.5 INH SOL 3 ML VIAL.NEB. NEB SCH (06:28)
[2023-10-24] MEDS ORDERED: INSULIN (NOVOLOG) ASPART 100 UNITS/ML 10ML VIAL SQ SCH (07:00)
[2023-10-24 07:02] LABS: MCH 26.4 pg (25.7-33.7); MCHC 31.6 g/dl (32.0-36.0); MEAN CELL VOLUME 83.4 fl (80-96); MEAN PLT VOLUME 7.6 fl (7.5-11.1); PLATELET COUNT 232 10^3/uL (134-434); RDW 28.6 % (11.6-15.6)
[2023-10-24 07:25] LABS: WHITE BLOOD COUNT 31.8 K/mm3 (4.0-10.0)
[2023-10-24 07:26] LABS: HEMOGLOBIN 6.3 GM/dL (10.7-15.3)
[2023-10-24] MEDS ORDERED: ENOXAPARIN NA (PORCINE) 40 MG/0.4 ML DISP.SYRIN SQ SCH (10:00)
[2023-10-24 10:25] LABS: BILIRUBIN,DIRECT 0.2 mg/dL (0.0-0.2)
[2023-10-24] MEDS: LISINOPRIL 10 MG TABLET PO SCH (11:09)
[2023-10-24] MEDS: PREDNISONE PO SCH (11:10)
[2023-10-24] MEDS: CYANOCOBALAMIN 1,000 MCG TABLET (FP) PO SCH (11:11)
[2023-10-24] MEDS: amLODIPine BESYLATE 5 MG TABLET (FP) PO SCH (11:11)
[2023-10-24] MEDS: FERROUS SO4 325 MG TABLET (FP) PO SCH (11:11)
[2023-10-24] MEDS: ARIPiprazole 20 MG TABLET PO SCH (11:12)
[2023-10-24] MEDS ORDERED: guaiFENesin/CODEINE 10 ML UNIT-DOSE CUPS PO PRN ×2 (11:25→13:06)
[2023-10-24] MEDS ORDERED: ACETAMINOPHEN/CAFFEINE/BUTALBITAL 1 TAB PO PRN (11:25)
[2023-10-24] MEDS: predniSONE 20 MG TABLET (UD) PO SCH (11:25)
[2023-10-24] MEDS: PATIENT'S OWN MEDICATION (NON-FORMULARY) (Meloxicam [Meloxicam] 15 MG Tablet) PO SCH (11:56)
[2023-10-24] MEDS: fentaNYL 12mcg/hr PATCH.TD72 TD SCH (13:36)
[2023-10-24] MEDS: guaiFENesin/CODEINE 10 ML UNIT-DOSE CUPS PO PRN (13:37)
[2023-10-24] MEDS: FENTANYL PATCH WASTE TD SCH (13:45)
[2023-10-24] MEDS: oxyCODONE HCL 5 MG TABLET PO PRN (15:17)
[2023-10-24] MEDS: FENTANYL PATCH WASTE TD PRN (16:20)
[2023-10-24 20:27] LABS: HEMATOCRIT 25.2 % (32.4-45.2); HEMOGLOBIN 8.3 GM/dL (10.7-15.3); MCH 27.5 pg (25.7-33.7); MCHC 32.8 g/dl (32.0-36.0); MEAN CELL VOLUME 83.8 fl (80-96); MEAN PLT VOLUME 7.7 fl (7.5-11.1); PLATELET COUNT 258 10^3/uL (134-434); RDW 25.3 % (11.6-15.6)
[2023-10-24 20:39] LABS: WHITE BLOOD COUNT 40.6 K/mm3 (4.0-10.0)
[2023-10-24] MEDS: INSULIN (LEVEMIR) 100 UNITS/ML UNITS SQ SCH (21:14)
[2023-10-24 21:22] LABS: ANISOCYTOSIS 2+; MACROCYTOSIS 1+; OVALOCYTE 2+
[2023-10-24 21:25] LABS: PLATELET ESTIMATE ADEQUATE
[2023-10-24] MEDS ORDERED: guaiFENesin/CODEINE 10 ML UNIT-DOSE CUPS PO SCH (22:00)
[2023-10-25] MEDS: CEFEPIME 2 GM in DEXTROSE 5%-WATER 100 ML IVPB SCH (01:09)
[2023-10-25] MEDS: ARIPiprazole 10 MG TABLET PO SCH (10:30)
[2023-10-25] MEDS ORDERED: predniSONE 20 MG TABLET (UD) PO SCH (11:15)
[2023-10-25] MEDS: INSULIN (LEVEMIR) 100 UNITS/ML UNITS SQ SCH (11:22)
[2023-10-25] MEDS ORDERED: QUEtiapine FUMARATE 100 MG TABLET (FP) ONE (20:52)
[2023-10-26] MEDS: CEFTRIAXONE 1 GM in DEXTROSE 5%-WATER - 50 ML IVPB SCH (03:57)
[2023-10-26 08:03] LABS: HEMATOCRIT 26.1 % (32.4-45.2); HEMOGLOBIN 8.5 GM/dL (10.7-15.3); MCH 27.4 pg (25.7-33.7); MCHC 32.7 g/dl (32.0-36.0); MEAN CELL VOLUME 83.8 fl (80-96); MEAN PLT VOLUME 7.5 fl (7.5-11.1); PLATELET COUNT 319 10^3/uL (134-434); RBC 3.12 M/mm3 (3.60-5.2)
[2023-10-26 08:12] LABS: POTASSIUM 4.3 mmol/L (3.5-5.1); WHITE BLOOD COUNT 32.9 K/mm3 (4.0-10.0)
[2023-10-26 08:17] LABS: ALBUMIN 2.7 g/dl (3.4-5.0); BLOOD UREA NITROGEN 12.5 mg/dL (7-18)
[2023-10-26 08:18] LABS: CALCIUM 8.7 mg/dL (8.5-10.1)
[2023-10-26 08:19] LABS: CREATININE 0.5 mg/dL (0.55-1.3); MAGNESIUM 2.6 mg/dL (1.8-2.4)
[2023-10-26 08:21] LABS: BILIRUBIN,TOTAL 0.3 mg/dL (0.2-1)
[2023-10-26 08:24] LABS: PHOSPHOROUS 3.2 mg/dL (2.5-4.9)
[2023-10-26 09:31] LABS: ANISOCYTOSIS 2+; MACROCYTOSIS 1+
[2023-10-26 09:36] LABS: PLATELET ESTIMATE ADEQUATE
[2023-10-26] MEDS ORDERED: QUEtiapine FUMARATE 100 MG TABLET (FP) ONE (10:57)
[2023-10-26] MEDS: predniSONE 20 MG TABLET (UD) PO SCH (11:07)
[2023-10-26 19:09] VITALS: BP 166/77; PULSE 92; RESP 21; TEMP 98.2
[2023-10-27] MEDS ORDERED: FENTANYL PATCH WASTE TD SCH (13:00)
== END 2023-10-26 18:50 | disposition home or self-care (01) | DRG 720 ==
LOC: JER 18:45 → JERBED 21:23 → J4S 10-24 01:23
PROVIDERS: ADMIT Internal Medicine; ATTEND Internal Medicine
PROC: 30233N1 Transfusion of Nonautologous Red Blood Cells into Peripheral Vein, Percutaneous Approach (ICD-10-PCS; principal; 2023-10-23)
DX: A41.51 Sepsis due to Escherichia coli [E. coli] (principal); E11.9 Type 2 diabetes mellitus without complications; I10 Essential (primary) hypertension; E78.5 Hyperlipidemia, unspecified; C50.919 Malignant neoplasm of unspecified site of unspecified female breast; C78.02 Secondary malignant neoplasm of left lung; C78.01 Secondary malignant neoplasm of right lung; E87.1 Hypo-osmolality and hyponatremia; D50.9 Iron deficiency anemia, unspecified; N39.0 Urinary tract infection, site not specified; D72.829 Elevated white blood cell count, unspecified
CPT/HCPCS: 0241U-QW; 36415; 36430; 71045-TC-FY; 71275-TC; 80053; 81003; 82248; 82728; 82803; 82962; 83010; 83540; 83550; 83605; 83615; 83735; 83880; 83930; 83935; 84100; 84300; 84484; 85025; 85027; 85045; 85610; 85730; 86850; 86880; 86900; 86901; 86922; 87040; 87086; 87186; 93005; 93010; 93306-TC; 94640; 94761; 99291; J0131; P9058

== ENCOUNTER 2023-11-01 08:48 | Day surgery (SDC) | payer OTHER ==
[2023-11-01 09:33] LABS: HEMATOCRIT 30.2 % (32.4-45.2); MCH 28.3 pg (25.7-33.7); MCHC 33.1 g/dl (32.0-36.0); MEAN CELL VOLUME 85.5 fl (80-96); MEAN PLT VOLUME 7.1 fl (7.5-11.1); PLATELET COUNT 287 10^3/uL (134-434); RBC 3.53 M/mm3 (3.60-5.2); RDW 25.4 % (11.6-15.6); WHITE BLOOD COUNT 15.5 K/mm3 (4.0-10.0)
[2023-11-01 09:51] LABS: CHLORIDE 97 mmol/L (98-107); POTASSIUM 4.7 mmol/L (3.5-5.1); SODIUM 131 mmol/L (136-145)
[2023-11-01 09:53] LABS: ALBUMIN 3.2 g/dl (3.4-5.0); ANION GAP 5 mmol/L (4-13); BLOOD UREA NITROGEN 9.7 mg/dL (7-18); CO2 29 mmol/L (21-32); GLUCOSE,RANDOM 240 mg/dL (74-106)
[2023-11-01 09:56] LABS: BILIRUBIN,DIRECT 0.1 mg/dL (0.0-0.2); CREATININE 0.7 mg/dL (0.55-1.3); SGOT/AST 15 U/L (15-37); SGPT/ALT 35 U/L (13-61)
[2023-11-01 09:58] LABS: BILIRUBIN,TOTAL 0.4 mg/dL (0.2-1); TOT PROT 7.3 g/dl (6.4-8.2)
[2023-11-01 09:59] LABS: ALK PHOS 156 U/L (45-117)
[2023-11-01] MEDS: FOSAPREPITANT DIMEGLUMINE 150 MG in SODIUM CHLORIDE 145 ML IVPB ONE (10:45)
[2023-11-01 10:56] LABS: ANISOCYTOSIS 3+; MACROCYTOSIS 0
[2023-11-01] MEDS: PALONOSETRON HCL 0.25 MG/5 ML VIAL IVPUSH ONE (11:40)
[2023-11-01] MEDS: DEXAMETHASONE SODIUM PHOSPHATE 10 MG in SODIUM CHLORIDE 50 ML IVPB ONE (11:42)
[2023-11-01] MEDS: SODIUM CHLORIDE IV ONE ×3 (12:15→13:51)
[2023-11-01] MEDS: PEMBROLIZUMAB IV ONE (12:15)
[2023-11-01] MEDS: GEMCITABINE HCL IV ONE (13:09)
[2023-11-01] MEDS: CARBOPLATIN IV ONE (13:51)
[2023-11-01 17:15] VITALS: BP 169/80; PULSE 78; RESP 16; TEMP 98.6
== END 2023-11-01 15:10 | disposition home or self-care (01) ==
LOC: JONCCHEMO 08:48 → J7W 08:51 → JONCCHEMO 15:10
PROVIDERS: ATTEND Internal Medicine Hematology & Oncology
DX: Z51.11 Encounter for antineoplastic chemotherapy (principal); C50.919 Malignant neoplasm of unspecified site of unspecified female breast; C78.01 Secondary malignant neoplasm of right lung; C78.02 Secondary malignant neoplasm of left lung
CPT/HCPCS: 36415; 80048; 80076; 85025; 96367; 96375; 96413; 96417; J1453; J2469; J9271

== ENCOUNTER 2023-11-08 08:08 | Day surgery (SDC) | payer OTHER ==
[2023-11-08 08:48] LABS: BASO % 0.6 % (0-2.0); EOS % 4.2 % (0-4.5); HEMATOCRIT 26.3 % (32.4-45.2); HEMOGLOBIN 8.6 GM/dL (10.7-15.3); LYMPH % 18.6 % (8-40); MCHC 32.6 g/dl (32.0-36.0); MEAN CELL VOLUME 85.8 fl (80-96); MEAN PLT VOLUME 7.3 fl (7.5-11.1); MONO % 7.8 % (3.8-10.2); NEUT % 68.8 % (42.8-82.8); PLATELET COUNT 118 10^3/uL (134-434); RBC 3.07 M/mm3 (3.60-5.2); RDW 23.5 % (11.6-15.6); WHITE BLOOD COUNT 3.5 K/mm3 (4.0-10.0)
[2023-11-08 09:06] LABS: POTASSIUM 4.7 mmol/L (3.5-5.1)
[2023-11-08 09:08] LABS: CALCIUM 8.5 mg/dL (8.5-10.1)
[2023-11-08 09:09] LABS: ALBUMIN 3.2 g/dl (3.4-5.0); BLOOD UREA NITROGEN 6.2 mg/dL (7-18)
[2023-11-08 09:11] LABS: BILIRUBIN,DIRECT 0.1 mg/dL (0.0-0.2)
[2023-11-08 09:12] LABS: CREATININE 0.6 mg/dL (0.55-1.3)
[2023-11-08 09:14] LABS: ANISOCYTOSIS 3+; BILIRUBIN,TOTAL 0.3 mg/dL (0.2-1); MACROCYTOSIS 0; TOT PROT 6.3 g/dl (6.4-8.2)
[2023-11-08] MEDS: GRANISETRON HCL/PF 1 MG in SODIUM CHLORIDE 50 ML IVPB ONE (09:37)
[2023-11-08 09:56] VITALS: RESP 20; TEMP 97.8
[2023-11-08] MEDS: GEMCITABINE HCL IV ONE (10:06)
[2023-11-08] MEDS: SODIUM CHLORIDE IV ONE (10:06)
[2023-11-08 13:59] VITALS: BP 148/57; PULSE 82
== END 2023-11-08 14:25 | disposition home or self-care (01) ==
LOC: JONCCHEMO 08:08 → J7W 08:08 → JONCCHEMO 14:25
PROVIDERS: ATTEND Internal Medicine Hematology & Oncology
DX: Z51.11 Encounter for antineoplastic chemotherapy (principal); C50.919 Malignant neoplasm of unspecified site of unspecified female breast; C78.01 Secondary malignant neoplasm of right lung; C78.02 Secondary malignant neoplasm of left lung
CPT/HCPCS: 36415; 80048; 80076; 85025; 96375; 96413

== ENCOUNTER 2023-11-09 14:45 | Day surgery (SDC) | payer OTHER ==
[2023-11-09] MEDS: PEGFILGRASTIM-CBQV (UDENYCA) 6 MG/0.6 ML SYRINGE SQ ONE (14:55)
[2023-11-09 15:39] VITALS: BP 135/70; PULSE 89; RESP 20; TEMP 97.8
== END 2023-11-09 15:00 | disposition home or self-care (01) ==
LOC: JONCCHEMO 14:45 → J7W 14:45 → JONCCHEMO 15:00
PROVIDERS: ATTEND Internal Medicine Hematology & Oncology
PROC: 3E013GC Introduction of Other Therapeutic Substance into Subcutaneous Tissue, Percutaneous Approach (ICD-10-PCS; principal; 2023-11-09)
DX: C50.919 Malignant neoplasm of unspecified site of unspecified female breast (principal); C78.01 Secondary malignant neoplasm of right lung; C78.02 Secondary malignant neoplasm of left lung; Z76.89 Persons encountering health services in other specified circumstances
CPT/HCPCS: 96372; Q5111

== ENCOUNTER 2023-11-20 17:50 | Inpatient (IN) | payer OTHER ==
[2023-11-20] MEDS ORDERED: morphine SULFATE 4 MG/ML VIAL ONE (19:04)
[2023-11-20] MEDS ORDERED: ACETAMINOPHEN INJECTION 100 ML IVPB ONE (19:05)
[2023-11-20] MEDS ORDERED: VANCOMYCIN 1 GRAM (PRE-DOCKED) 1,000 MG/250 ML BAG IVPB ONE (19:05)
[2023-11-20] MEDS ORDERED: CEFEPIME 2 GM/100 ML BAG IVPB ONE (19:06)
[2023-11-20 19:20] LABS: VENOUS O2 SATURATION 48.1 % (70-80); VENOUS PCO2 41.3 mmHg (38-52); VENOUS PH 7.397 (7.310-7.410)
[2023-11-20 19:23] LABS: BASO % 0.1 % (0-2.0); EOS % 0.1 % (0-4.5); HEMATOCRIT 21.5 % (32.4-45.2); LYMPH % 4.5 % (8-40); MCH 28.4 pg (25.7-33.7); MCHC 31.7 g/dl (32.0-36.0); MEAN CELL VOLUME 89.6 fl (80-96); MONO % 12.5 % (3.8-10.2); NEUT % 82.8 % (42.8-82.8); PLATELET COUNT 161 10^3/uL (134-434); RDW 22.3 % (11.6-15.6)
[2023-11-20 19:26] LABS: HEMOGLOBIN 6.8 GM/dL (10.7-15.3); WHITE BLOOD COUNT 37.1 K/mm3 (4.0-10.0)
[2023-11-20 19:30] LABS: CALCIUM 8.5 mg/dL (8.5-10.1); INR 1.22 (0.83-1.09)
[2023-11-20 19:31] LABS: ALBUMIN 3.5 g/dl (3.4-5.0); BLOOD UREA NITROGEN 6.6 mg/dL (7-18)
[2023-11-20 19:33] LABS: ACTIVATED PTT 32.5 SECONDS (25.2-36.5)
[2023-11-20 19:35] LABS: CREATININE 0.7 mg/dL (0.55-1.3)
[2023-11-20 19:36] LABS: BILIRUBIN,TOTAL 0.6 mg/dL (0.2-1); TOT PROT 7.1 g/dl (6.4-8.2)
[2023-11-20] MEDS: SODIUM CHLORIDE 0.9% 1000 ML INFUS.BAG IV STA (19:38)
[2023-11-20] MEDS: ACETAMINOPHEN 1000 MG/100 ML BAG IVPB ONE (19:38)
[2023-11-20] MEDS: morphine CARPU-JECT 4 MG/1 ML DISP.SYRIN IVPUSH ONE (19:39)
[2023-11-20] MEDS: CEFEPIME HCL 2 GM VIAL (RESTRICTED TO ID) IVPB ONE (19:40)
[2023-11-20 19:52] LABS: EPI CELLS 21 /uL (0-25.1); HYALINE CASTS 0 /uL (0-3.1); URINE APPEARANCE CLEAR; URINE BACTERIA 15 /uL (0-1359); URINE BILIRUBIN NEGATIVE (NEGATIVE); URINE COLOR YELLOW; URINE GLUCOSE (UA) NEGATIVE (NEGATIVE); URINE KETONE 1+ (NEGATIVE); URINE LEUK ESTERASE TRACE (NEGATIVE); URINE NITRITE NEGATIVE (NEGATIVE); URINE PROTEIN 1+ (NEGATIVE); URINE RBC 8 /uL (0-23.9); URINE WBC 31 /uL (0-25.8)
[2023-11-20] MEDS: VANCOMYCIN 1,000 MG in DEXTROSE 5%-WATER - 250 ML IVPB ONE (19:54)
[2023-11-20] MEDS: SODIUM CHLORIDE 0.9% 500 ML INFUS.BAG IV ONE (20:37)
[2023-11-20 20:52] LABS: ANISOCYTOSIS 3+; MACROCYTOSIS 0; TARGET CELLS 1+; TOXIC GRANULATION 1+
[2023-11-21] MEDS ORDERED: CEFEPIME 2 GM/100 ML BAG IVPB ONE ×2 (05:33→15:22)
[2023-11-21] MEDS: CEFEPIME HCL 2 GM VIAL (RESTRICTED TO ID) IVPB SCH (05:44)
[2023-11-21] MEDS ORDERED: SIMETHICONE 80 MG TAB.CHEW (FP) PO PRN (06:06)
[2023-11-21] MEDS ORDERED: BISACODYL 10 MG SUPP.RECT ONE (06:20)
[2023-11-21] MEDS ORDERED: SIMETHICONE 80 MG TAB.CHEW (FP) ONE ×5 (06:20→22:22)
[2023-11-21] MEDS ORDERED: MAGNESIUM CITRATE 300 ML BOTTLE ONE (06:21)
[2023-11-21] MEDS: BISACODYL 10 MG SUPP.RECT PR ONE (06:29)
[2023-11-21] MEDS: MAGNESIUM CITRATE 300 ML BOTTLE PO ONE (06:29)
[2023-11-21] MEDS: SIMETHICONE 80 MG TAB.CHEW (FP) PO ONE (06:29)
[2023-11-21] MEDS: CEFEPIME 2 GM in SODIUM CHLORIDE 100 ML IVPB SCH (06:30)
[2023-11-21] MEDS ORDERED: ACETAMINOPHEN INJECTION 100 ML IVPB ONE ×2 (06:43→18:51)
[2023-11-21] MEDS: ACETAMINOPHEN 1000 MG/100 ML BAG IVPB PRN (06:48)
[2023-11-21] MEDS ORDERED: ONDANSETRON 4 MG/2 ML VIAL ONE (06:53)
[2023-11-21] MEDS: ONDANSETRON 4 MG/2 ML VIAL IVPUSH PRN (06:58)
[2023-11-21] MEDS: FLUTICASONE/SALMETEROL (WIXELA) 100 MCG/50 MCG DISKUS IH ONE (08:00)
[2023-11-21 09:48] LABS: HEMATOCRIT 27.7 % (32.4-45.2); HEMOGLOBIN 9.1 GM/dL (10.7-15.3); MCH 28.8 pg (25.7-33.7); MCHC 32.9 g/dl (32.0-36.0); MEAN CELL VOLUME 87.7 fl (80-96); MEAN PLT VOLUME 7.9 fl (7.5-11.1); PLATELET COUNT 166 10^3/uL (134-434); RBC 3.15 M/mm3 (3.60-5.2)
[2023-11-21] MEDS ORDERED: METOPROLOL TARTRATE 50 MG TABLET (FP) ONE ×2 (09:51→22:21)
[2023-11-21] MEDS ORDERED: FERROUS SO4 325 MG TABLET (FP) ONE (09:51)
[2023-11-21] MEDS ORDERED: POLYETHYLENE GLYCOL (HEALTHYLAX) 3350 17 GM PACKET ONE ×2 (09:51→22:21)
[2023-11-21] MEDS ORDERED: amLODIPine BESYLATE 5 MG TABLET (FP) ONE (09:51)
[2023-11-21] MEDS ORDERED: predniSONE 20 MG TABLET (UD) ONE (09:51)
[2023-11-21] MEDS ORDERED: ENOXAPARIN NA (PORCINE) 40 MG/0.4 ML DISP.SYRIN SQ ONE (09:52)
[2023-11-21] MEDS ORDERED: LISINOPRIL 10 MG TABLET ONE (09:52)
[2023-11-21] MEDS ORDERED: INSULIN (LEVEMIR) 100 UNITS/ML UNITS SQ ONE ×2 (09:54→22:13)
[2023-11-21] MEDS ORDERED: INSULIN ASPART SLIDING SCALE (NOVOLOG) 1 VIAL SQ ONE ×4 (09:54→22:13)
[2023-11-21 09:55] LABS: WHITE BLOOD COUNT 40.5 K/mm3 (4.0-10.0)
[2023-11-21] MEDS: INSULIN ASPART SLIDING SCALE (NOVOLOG) 1 VIAL SQ SCH (10:00)
[2023-11-21] MEDS: INSULIN (NOVOLOG) ASPART 100 UNITS/ML 10ML VIAL SQ SCH (10:00)
[2023-11-21] MEDS ORDERED: PATIENT'S OWN MEDICATION (NON-FORMULARY) (Meloxicam [Meloxicam] 15 MG Tablet) PO SCH (10:00)
[2023-11-21] MEDS: ARIPiprazole 20 MG TABLET PO SCH (10:05)
[2023-11-21] MEDS: amLODIPine BESYLATE 5 MG TABLET (FP) PO SCH (10:05)
[2023-11-21] MEDS: INSULIN (LEVEMIR) 100 UNITS/ML UNITS SQ SCH ×2 (10:05→22:18)
[2023-11-21] MEDS: CYANOCOBALAMIN 1,000 MCG TABLET (FP) PO SCH (10:05)
[2023-11-21] MEDS: FERROUS SO4 325 MG TABLET (FP) PO SCH (10:05)
[2023-11-21] MEDS: METOPROLOL TARTRATE 50 MG TABLET (FP) PO SCH (10:05)
[2023-11-21] MEDS: predniSONE 20 MG TABLET (UD) PO SCH (10:05)
[2023-11-21] MEDS: LISINOPRIL 10 MG TABLET PO SCH (10:05)
[2023-11-21 10:08] LABS: POTASSIUM 4.4 mmol/L (3.5-5.1)
[2023-11-21] MEDS: SIMETHICONE 80 MG TAB.CHEW (FP) PO SCH (10:10)
[2023-11-21] MEDS: QUEtiapine FUMARATE 300 MG TABLET PO SCH ×2 (10:10→22:32)
[2023-11-21] MEDS: POLYETHYLENE GLYCOL (HEALTHYLAX) 3350 17 GM PACKET PO SCH (10:10)
[2023-11-21] MEDS: FLUTICASONE/SALMETEROL (WIXELA) 100 MCG/50 MCG DISKUS IH SCH (10:10)
[2023-11-21] MEDS: ENOXAPARIN NA (PORCINE) 40 MG/0.4 ML DISP.SYRIN SQ SCH (10:10)
[2023-11-21 10:13] LABS: ALBUMIN 2.9 g/dl (3.4-5.0); BLOOD UREA NITROGEN 5.9 mg/dL (7-18)
[2023-11-21 10:16] LABS: CREATININE 0.5 mg/dL (0.55-1.3)
[2023-11-21 10:17] LABS: BILIRUBIN,TOTAL 1.5 mg/dL (0.2-1)
[2023-11-21 10:18] LABS: TOT PROT 6.7 g/dl (6.4-8.2)
[2023-11-21 11:29] LABS: ANISOCYTOSIS 2+; MACROCYTOSIS 0
[2023-11-21] MEDS ORDERED: INSULIN (LEVEMIR) 100 UNITS/ML UNITS SQ SCH (11:30)
[2023-11-21] MEDS: CEFEPIME 2 GM in DEXTROSE 5%-WATER 100 ML IVPB SCH (17:54)
[2023-11-21] MEDS ORDERED: PATIENT'S OWN MEDICATION (NON-FORMULARY) (Insulin Glargine,Hum.Rec.Anlog [Lantus] 100 UNIT SQ SCH (22:00)
[2023-11-21] MEDS ORDERED: ROSUVASTATIN CA 5 MG TABLET ONE (22:21)
[2023-11-21] MEDS: ROSUVASTATIN CA 5 MG TABLET PO SCH (22:32)
[2023-11-21] MEDS: AMITRIPTYLINE HCL 75 MG TABLET PO SCH (22:32)
[2023-11-22] MEDS ORDERED: CEFEPIME 2 GM/100 ML BAG IVPB ONE (02:04)
[2023-11-22 04:07] VITALS: BMI 31.2
[2023-11-22 07:03] LABS: HEMATOCRIT 26.9 % (32.4-45.2); HEMOGLOBIN 8.9 GM/dL (10.7-15.3); MCH 29.2 pg (25.7-33.7); MCHC 33.2 g/dl (32.0-36.0); MEAN CELL VOLUME 87.8 fl (80-96); MEAN PLT VOLUME 7.8 fl (7.5-11.1); PLATELET COUNT 212 10^3/uL (134-434); RBC 3.06 M/mm3 (3.60-5.2); RDW 18.7 % (11.6-15.6)
[2023-11-22 07:23] LABS: ALBUMIN 2.7 g/dl (3.4-5.0); BLOOD UREA NITROGEN 8.3 mg/dL (7-18); MAGNESIUM 2.4 mg/dL (1.8-2.4)
[2023-11-22 07:26] LABS: CREATININE 0.4 mg/dL (0.55-1.3); PHOSPHOROUS 2.3 mg/dL (2.5-4.9)
[2023-11-22 07:28] LABS: BILIRUBIN,TOTAL 0.6 mg/dL (0.2-1); TOT PROT 6.5 g/dl (6.4-8.2)
[2023-11-22 07:33] LABS: WHITE BLOOD COUNT 36.1 K/mm3 (4.0-10.0)
[2023-11-22] MEDS: NAPH,MB-DB/K PH,MBDB POWDER PACKET PO ONE (09:38)
[2023-11-22 10:26] LABS: ANISOCYTOSIS 0; MACROCYTOSIS 0
[2023-11-22] MEDS: ARIPiprazole 10 MG TABLET PO SCH ×2 (12:03→12:04)
[2023-11-22] MEDS ORDERED: QUEtiapine FUMARATE 100 MG TABLET (FP) ONE (21:16)
[2023-11-22] MEDS: BENZOCAINE/MENTH/CETYLPYRD CL 1 EACH LOZENGE MM PRN (21:21)
[2023-11-23] MEDS: guaiFENesin 200 MG/10 ML 10 ML UNIT-DOSE CUPS PO PRN (06:29)
[2023-11-23 07:46] LABS: HEMATOCRIT 28.8 % (32.4-45.2); HEMOGLOBIN 9.4 GM/dL (10.7-15.3); MCH 29.2 pg (25.7-33.7); MCHC 32.8 g/dl (32.0-36.0); MEAN CELL VOLUME 88.8 fl (80-96); PLATELET COUNT 245 10^3/uL (134-434); RBC 3.24 M/mm3 (3.60-5.2); WHITE BLOOD COUNT 29.1 K/mm3 (4.0-10.0)
[2023-11-23] MEDS ORDERED: ALBUTEROL SO4 2.5/IPRATROPIUM 0.5 INH SOL 3 ML VIAL.NEB. NEB PRN (07:46)
[2023-11-23 07:51] LABS: POTASSIUM 4.3 mmol/L (3.5-5.1)
[2023-11-23 07:57] LABS: ALBUMIN 2.8 g/dl (3.4-5.0); BLOOD UREA NITROGEN 9.7 mg/dL (7-18); MAGNESIUM 2.5 mg/dL (1.8-2.4)
[2023-11-23 07:58] LABS: CALCIUM 8.5 mg/dL (8.5-10.1)
[2023-11-23 07:59] LABS: PHOSPHOROUS 3.5 mg/dL (2.5-4.9)
[2023-11-23 08:00] LABS: BILIRUBIN,TOTAL 0.5 mg/dL (0.2-1); TOT PROT 6.8 g/dl (6.4-8.2)
[2023-11-23 08:02] LABS: CREATININE 0.6 mg/dL (0.55-1.3)
[2023-11-23] MEDS ORDERED: CODEINE SO4 30 MG TABLET PO PRN (16:45)
[2023-11-23] MEDS ORDERED: QUEtiapine FUMARATE 100 MG TABLET (FP) ONE (21:11)
[2023-11-23] MEDS: guaiFENesin 600 MG TABLET.ER (FP) PO SCH (21:14)
[2023-11-24] MEDS: MELATONIN 5 MG TABLETS PO ONE (01:35)
[2023-11-24 07:26] LABS: HEMATOCRIT 28.4 % (32.4-45.2); HEMOGLOBIN 9.4 GM/dL (10.7-15.3); MCH 29.5 pg (25.7-33.7); MCHC 33.2 g/dl (32.0-36.0); MEAN PLT VOLUME 7.4 fl (7.5-11.1); PLATELET COUNT 278 10^3/uL (134-434); RBC 3.18 M/mm3 (3.60-5.2); RDW 18.6 % (11.6-15.6); WHITE BLOOD COUNT 28.7 K/mm3 (4.0-10.0)
[2023-11-24 07:51] LABS: POTASSIUM 4.5 mmol/L (3.5-5.1)
[2023-11-24 08:01] LABS: ALBUMIN 2.9 g/dl (3.4-5.0); BLOOD UREA NITROGEN 11.5 mg/dL (7-18)
[2023-11-24 08:05] LABS: CREATININE 0.5 mg/dL (0.55-1.3)
[2023-11-24 08:06] LABS: BILIRUBIN,TOTAL 0.6 mg/dL (0.2-1); TOT PROT 6.8 g/dl (6.4-8.2)
[2023-11-24] MEDS ORDERED: CEFEPIME HCL 2 GM VIAL (RESTRICTED TO ID) ONE (09:09)
[2023-11-24 10:14] LABS: ANISOCYTOSIS 0; MACROCYTOSIS 0
[2023-11-24] MEDS ORDERED: INSULIN ASPART SLIDING SCALE (NOVOLOG) 1 VIAL SQ ONE (12:07)
[2023-11-24] MEDS: AMOX TR/POT CLAV 875MG/125MG TABLETS (FP) PO SCH (17:40)
[2023-11-25] MEDS: ACETAMINOPHEN 500 MG TABLET (FP) PO ONE (06:56)
[2023-11-25 07:30] LABS: HEMATOCRIT 30.1 % (32.4-45.2); MCH 29.6 pg (25.7-33.7); MCHC 33.4 g/dl (32.0-36.0); MEAN CELL VOLUME 88.6 fl (80-96); MEAN PLT VOLUME 7.5 fl (7.5-11.1); PLATELET COUNT 273 10^3/uL (134-434); RBC 3.39 M/mm3 (3.60-5.2); RDW 18.1 % (11.6-15.6)
[2023-11-25 07:49] LABS: POTASSIUM 4.8 mmol/L (3.5-5.1)
[2023-11-25 07:53] LABS: ALBUMIN 2.8 g/dl (3.4-5.0); BLOOD UREA NITROGEN 8.8 mg/dL (7-18); CALCIUM 8.4 mg/dL (8.5-10.1)
[2023-11-25 07:56] LABS: CREATININE 0.5 mg/dL (0.55-1.3)
[2023-11-25 07:58] LABS: BILIRUBIN,TOTAL 0.8 mg/dL (0.2-1); TOT PROT 6.7 g/dl (6.4-8.2)
[2023-11-25] MEDS: BISACODYL 10 MG SUPP.RECT PR ONE (15:07)
[2023-11-25 16:28] VITALS: BP 156/78; PULSE 89; RESP 18; TEMP 98.1
== END 2023-11-25 18:49 | disposition home or self-care (01) | DRG 720 ==
LOC: JER 17:50 → JERBED 19:56 → J4W 11-22 03:28
PROVIDERS: ADMIT Internal Medicine; ATTEND Internal Medicine
PROC: 30233N1 Transfusion of Nonautologous Red Blood Cells into Peripheral Vein, Percutaneous Approach (ICD-10-PCS; principal; 2023-11-20)
DX: A41.89 Other specified sepsis (principal); C78.00 Secondary malignant neoplasm of unspecified lung; E11.65 Type 2 diabetes mellitus with hyperglycemia; J20.9 Acute bronchitis, unspecified; C50.919 Malignant neoplasm of unspecified site of unspecified female breast; I10 Essential (primary) hypertension; E78.5 Hyperlipidemia, unspecified; R00.0 Tachycardia, unspecified; R09.02 Hypoxemia; K59.00 Constipation, unspecified; D63.0 Anemia in neoplastic disease; F32.9 Major depressive disorder, single episode, unspecified; R10.33 Periumbilical pain; R91.8 Other nonspecific abnormal finding of lung field; D18.09 Hemangioma of other sites
CPT/HCPCS: 0241U-QW; 36415; 36430; 71045-TC-FY; 71275-TC; 74018-TC-FY; 74177-TC; 80053; 81003; 82024; 82533; 82803; 82962; 83605; 83690; 83735; 84100; 84439; 84443; 84484; 84703; 85025; 85027; 85610; 85730; 86850; 86900; 86901; 86922; 87040; 87077; 87081; 87086; 93005; 93010; 99291; J0131; P9058; Q9967

== ENCOUNTER 2023-12-06 07:55 | Day surgery (SDC) | payer OTHER ==
[~2023-12-06 07:55] MED LIST changes: -DEXAMETHASONE SODIUM PHOSPHATE 10 MG in SODIUM CHLORIDE 50 ML IVPB ONE; +GEMCITABINE HCL IV ONE; -INSULIN ASPART SLIDING SCALE (NOVOLOG) 1 VIAL SQ ONE; -PACLITAXEL 120 MG in SODIUM CHLORIDE 250 ML IVPB ONE; -PEMBROLIZUMAB 200 MG in SODIUM CHLORIDE 50 ML IV ONE; +SODIUM CHLORIDE IV ONE
[2023-12-06 08:32] LABS: EOS % 2.7 % (0-4.5); HEMATOCRIT 24.9 % (32.4-45.2); HEMOGLOBIN 8.4 GM/dL (10.7-15.3); LYMPH % 12.3 % (8-40); MCH 32.2 pg (25.7-33.7); MCHC 33.8 g/dl (32.0-36.0); MEAN PLT VOLUME 7.4 fl (7.5-11.1); MONO % 9.2 % (3.8-10.2); NEUT % 74.8 % (42.8-82.8); PLATELET COUNT 193 10^3/uL (134-434); RBC 2.62 M/mm3 (3.60-5.2); RDW 20.8 % (11.6-15.6); WHITE BLOOD COUNT 8.5 K/mm3 (4.0-10.0)
[2023-12-06 09:06] LABS: POTASSIUM 4.6 mmol/L (3.5-5.1)
[2023-12-06 09:07] LABS: CALCIUM 8.8 mg/dL (8.5-10.1)
[2023-12-06 09:09] LABS: ALBUMIN 3.3 g/dl (3.4-5.0); BLOOD UREA NITROGEN 5.2 mg/dL (7-18)
[2023-12-06 09:11] LABS: BILIRUBIN,DIRECT 0.2 mg/dL (0.0-0.2); CREATININE 0.7 mg/dL (0.55-1.3)
[2023-12-06 09:13] LABS: BILIRUBIN,TOTAL 0.4 mg/dL (0.2-1)
[2023-12-06] MEDS: FOSAPREPITANT DIMEGLUMINE 150 MG in SODIUM CHLORIDE 145 ML IVPB ONE (09:55)
[2023-12-06 10:16] VITALS: RESP 20; TEMP 98.4
[2023-12-06] MEDS: DEXAMETHASONE SODIUM PHOSPHATE 10 MG in SODIUM CHLORIDE 50 ML IVPB ONE (10:42)
[2023-12-06] MEDS: PALONOSETRON HCL 0.25 MG/5 ML VIAL IVPUSH ONE (10:45)
[2023-12-06] MEDS: SODIUM CHLORIDE IV ONE ×2 (11:11→12:03)
[2023-12-06] MEDS: PEMBROLIZUMAB IV ONE (11:11)
[2023-12-06] MEDS: GEMCITABINE HCL IV ONE (12:03)
[2023-12-06 13:52] VITALS: BP 146/71; PULSE 88
== END 2023-12-06 13:00 | disposition home or self-care (01) ==
LOC: JONCCHEMO 07:55 → J7W 07:56 → JONCCHEMO 13:00
PROVIDERS: ATTEND Internal Medicine Hematology & Oncology
DX: Z51.11 Encounter for antineoplastic chemotherapy (principal); C50.919 Malignant neoplasm of unspecified site of unspecified female breast; C78.01 Secondary malignant neoplasm of right lung; C78.02 Secondary malignant neoplasm of left lung
CPT/HCPCS: 36415; 80048; 80076; 85025; 96367; 96375; 96413; 96417; J1453; J2469; J9271

== ENCOUNTER 2023-12-13 07:54 | Day surgery (SDC) | payer OTHER ==
[2023-12-13 08:39] LABS: BASO % 1.3 % (0-2.0); EOS % 3.7 % (0-4.5); HEMATOCRIT 27.9 % (32.4-45.2); HEMOGLOBIN 9.3 GM/dL (10.7-15.3); LYMPH % 20.4 % (8-40); MCH 31.6 pg (25.7-33.7); MCHC 33.2 g/dl (32.0-36.0); MEAN CELL VOLUME 95.1 fl (80-96); MEAN PLT VOLUME 6.9 fl (7.5-11.1); MONO % 8.7 % (3.8-10.2); NEUT % 65.9 % (42.8-82.8); PLATELET COUNT 166 10^3/uL (134-434); RBC 2.93 M/mm3 (3.60-5.2); RDW 18.7 % (11.6-15.6); WHITE BLOOD COUNT 4.6 K/mm3 (4.0-10.0)
[2023-12-13 08:57] LABS: CHLORIDE 102 mmol/L (98-107); POTASSIUM 4.4 mmol/L (3.5-5.1); SODIUM 137 mmol/L (136-145)
[2023-12-13 08:59] LABS: ALBUMIN 3.5 g/dl (3.4-5.0); CALCIUM 8.7 mg/dL (8.5-10.1)
[2023-12-13 09:00] LABS: ANION GAP 5 mmol/L (4-13); BLOOD UREA NITROGEN 4.8 mg/dL (7-18); CO2 29 mmol/L (21-32); GLUCOSE,RANDOM 223 mg/dL (74-106)
[2023-12-13 09:02] LABS: BILIRUBIN,DIRECT 0.1 mg/dL (0.0-0.2); CREATININE 0.6 mg/dL (0.55-1.3)
[2023-12-13 09:03] LABS: SGOT/AST 27 U/L (15-37); SGPT/ALT 50 U/L (13-61)
[2023-12-13 09:04] LABS: BILIRUBIN,TOTAL 0.3 mg/dL (0.2-1)
[2023-12-13 09:05] LABS: ALK PHOS 117 U/L (45-117)
[2023-12-13] MEDS: GRANISETRON HCL/PF 1 MG in SODIUM CHLORIDE 50 ML IVPB ONE (10:15)
[2023-12-13] MEDS: GEMCITABINE HCL IV ONE (10:36)
[2023-12-13] MEDS: SODIUM CHLORIDE IV ONE (10:36)
[2023-12-13 16:04] VITALS: BP 148/66; PULSE 88; RESP 20; TEMP 98.2
== END 2023-12-13 10:50 | disposition home or self-care (01) ==
LOC: J7W 07:54 → JONCCHEMO 07:54
PROVIDERS: ATTEND Internal Medicine Hematology & Oncology
DX: Z51.11 Encounter for antineoplastic chemotherapy (principal); C50.919 Malignant neoplasm of unspecified site of unspecified female breast; C78.01 Secondary malignant neoplasm of right lung; C78.02 Secondary malignant neoplasm of left lung
CPT/HCPCS: 36415; 80053; 80076; 85025; 96375; 96413

== ENCOUNTER 2023-12-27 08:18 | Day surgery (SDC) | payer OTHER ==
[2023-12-27 09:02] LABS: BASO % 0.9 % (0-2.0); EOS % 6.5 % (0-4.5); HEMATOCRIT 29.2 % (32.4-45.2); HEMOGLOBIN 9.9 GM/dL (10.7-15.3); LYMPH % 18.6 % (8-40); MCH 32.5 pg (25.7-33.7); MEAN CELL VOLUME 95.5 fl (80-96); MONO % 11.6 % (3.8-10.2); NEUT % 62.4 % (42.8-82.8); PLATELET COUNT 236 10^3/uL (134-434); RBC 3.06 M/mm3 (3.60-5.2); RDW 18.7 % (11.6-15.6); WHITE BLOOD COUNT 4.7 K/mm3 (4.0-10.0)
[2023-12-27 09:28] LABS: CHLORIDE 103 mmol/L (98-107); POTASSIUM 4.7 mmol/L (3.5-5.1); SODIUM 135 mmol/L (136-145)
[2023-12-27 09:30] LABS: CALCIUM 8.2 mg/dL (8.5-10.1)
[2023-12-27 09:31] LABS: ALBUMIN 3.3 g/dl (3.4-5.0); ANION GAP 4 mmol/L (4-13); CO2 28 mmol/L (21-32); GLUCOSE,RANDOM 215 mg/dL (74-106)
[2023-12-27 09:34] LABS: BILIRUBIN,DIRECT 0.2 mg/dL (0.0-0.2); CREATININE 0.5 mg/dL (0.55-1.3); SGOT/AST 20 U/L (15-37); SGPT/ALT 34 U/L (13-61)
[2023-12-27 09:35] LABS: BILIRUBIN,TOTAL 0.3 mg/dL (0.2-1)
[2023-12-27 09:36] LABS: TOT PROT 6.3 g/dl (6.4-8.2)
[2023-12-27 09:37] LABS: ALK PHOS 109 U/L (45-117)
[2023-12-27] MEDS: FOSAPREPITANT DIMEGLUMINE 150 MG in SODIUM CHLORIDE 145 ML IVPB ONE (11:17)
[2023-12-27] MEDS: PALONOSETRON HCL 0.25 MG/5 ML VIAL IVPUSH ONE (11:17)
[2023-12-27] MEDS: DEXAMETHASONE SODIUM PHOSPHATE 10 MG in SODIUM CHLORIDE 50 ML IVPB ONE (11:55)
[2023-12-27] MEDS: PEMBROLIZUMAB IV ONE ×2 (12:15→12:51)
[2023-12-27] MEDS: SODIUM CHLORIDE IV ONE ×3 (12:15→12:51)
[2023-12-27] MEDS: GEMCITABINE HCL IV ONE (12:49)
[2023-12-27 12:55] VITALS: RESP 20; TEMP 98.2
[2023-12-27 13:28] VITALS: BP 152/79; PULSE 93
== END 2023-12-27 13:45 | disposition home or self-care (01) ==
LOC: JONCCHEMO 08:18 → J7W 08:19 → JONCCHEMO 13:45
PROVIDERS: ATTEND Internal Medicine Hematology & Oncology
DX: Z51.11 Encounter for antineoplastic chemotherapy (principal); C50.919 Malignant neoplasm of unspecified site of unspecified female breast; Z17.0 Estrogen receptor positive status [ER+]
CPT/HCPCS: 36415; 80048; 80076; 85025; 96367; 96375; 96413; 96417; J1453; J2469; J9271

== ENCOUNTER 2024-01-03 09:09 | Emergency (ER) | payer OTHER ==
[2024-01-03 09:25] VITALS: RESP 18; TEMP 97.8; BMI 31.7
[2024-01-03] MEDS ORDERED: ACETAMINOPHEN 325 MG TABLET (FP) ONE (10:22)
[2024-01-03] MEDS: ACETAMINOPHEN 500 MG TABLET (FP) PO ONE ×2 (10:26→17:41)
[2024-01-03] MEDS ORDERED: CEPHALEXIN MONOHYDRATE 500 MG CAPSULE (UD) ONE (17:35)
[2024-01-03] MEDS ORDERED: ACETAMINOPHEN 500 MG TABLET (FP) ONE (17:35)
[2024-01-03] MEDS: CEPHALEXIN MONOHYDRATE 500 MG CAPSULE (UD) PO ONE (17:42)
[2024-01-03 17:44] VITALS: BP 160/70; PULSE 83
== END 2024-01-03 17:44 | disposition home or self-care (01) ==
LOC: JER 09:09
DX: M79.602 Pain in left arm (principal); R22.32 Localized swelling, mass and lump, left upper limb; Z92.21 Personal history of antineoplastic chemotherapy
CPT/HCPCS: 76882-TC-RT-FY; 93971; 99284-25

== ENCOUNTER 2024-01-17 08:07 | Day surgery (SDC) | payer OTHER ==
[2024-01-17 08:48] LABS: BASO % 0.9 % (0-2.0); EOS % 7.5 % (0-4.5); HEMATOCRIT 33.4 % (32.4-45.2); HEMOGLOBIN 11.4 GM/dL (10.7-15.3); LYMPH % 18.1 % (8-40); MCH 32.1 pg (25.7-33.7); MCHC 34.2 g/dl (32.0-36.0); MEAN CELL VOLUME 93.9 fl (80-96); MEAN PLT VOLUME 7.7 fl (7.5-11.1); NEUT % 62.5 % (42.8-82.8); PLATELET COUNT 212 10^3/uL (134-434); RBC 3.56 M/mm3 (3.60-5.2); RDW 15.1 % (11.6-15.6); WHITE BLOOD COUNT 6.1 K/mm3 (4.0-10.0)
[2024-01-17 09:02] LABS: CHLORIDE 100 mmol/L (98-107); POTASSIUM 4.6 mmol/L (3.5-5.1); SODIUM 136 mmol/L (136-145)
[2024-01-17 09:04] LABS: ALBUMIN 3.6 g/dl (3.4-5.0); ANION GAP 8 mmol/L (4-13); BLOOD UREA NITROGEN 7.2 mg/dL (7-18); CALCIUM 8.7 mg/dL (8.5-10.1); CO2 29 mmol/L (21-32); GLUCOSE,RANDOM 268 mg/dL (74-106)
[2024-01-17 09:06] LABS: BILIRUBIN,DIRECT 0.2 mg/dL (0.0-0.2); SGOT/AST 15 U/L (15-37); SGPT/ALT 24 U/L (13-61)
[2024-01-17 09:08] LABS: CREATININE 0.6 mg/dL (0.55-1.3)
[2024-01-17 09:09] LABS: TOT PROT 6.4 g/dl (6.4-8.2)
[2024-01-17 09:10] LABS: ALK PHOS 105 U/L (45-117)
[2024-01-17 09:12] LABS: BILIRUBIN,TOTAL 0.4 mg/dL (0.2-1)
[2024-01-17] MEDS: FOSAPREPITANT DIMEGLUMINE 150 MG in SODIUM CHLORIDE 145 ML IVPB ONE (10:10)
[2024-01-17] MEDS: DEXAMETHASONE SODIUM PHOSPHATE 10 MG in SODIUM CHLORIDE 50 ML IVPB ONE (11:05)
[2024-01-17] MEDS: PALONOSETRON HCL 0.25 MG/5 ML VIAL IVPUSH ONE (11:05)
[2024-01-17] MEDS: SODIUM CHLORIDE IV ONE ×2 (11:35→12:09)
[2024-01-17] MEDS: PEMBROLIZUMAB IV ONE (11:35)
[2024-01-17] MEDS: GEMCITABINE HCL IV ONE (12:09)
[2024-01-17 13:56] VITALS: RESP 20; TEMP 98.9
[2024-01-17 14:05] VITALS: BP 161/79; PULSE 84
== END 2024-01-17 13:00 | disposition home or self-care (01) ==
LOC: JONCCHEMO 08:07 → J7W 08:10 → JONCCHEMO 13:00
PROVIDERS: ATTEND Internal Medicine Hematology & Oncology
DX: Z51.11 Encounter for antineoplastic chemotherapy (principal); C50.911 Malignant neoplasm of unspecified site of right female breast
CPT/HCPCS: 36415; 80048; 80076; 85025; 96367; 96375; 96413; 96417; J1453; J2469; J9271

== ENCOUNTER 2024-02-22 04:32 | Day surgery (SDC) | payer OTHER ==
[2024-02-18 11:25] VITALS: BMI 32.3
[2024-02-22 08:24] LABS: BASO % 1.1 % (0-2.0); EOS % 12.2 % (0-4.5); HEMATOCRIT 37.4 % (32.4-45.2); HEMOGLOBIN 12.5 GM/dL (10.7-15.3); LYMPH % 15.4 % (8-40); MCH 29.7 pg (25.7-33.7); MCHC 33.4 g/dl (32.0-36.0); MEAN CELL VOLUME 88.9 fl (80-96); MEAN PLT VOLUME 7.8 fl (7.5-11.1); MONO % 11.3 % (3.8-10.2); PLATELET COUNT 201 10^3/uL (134-434); RBC 4.21 M/mm3 (3.60-5.2); WHITE BLOOD COUNT 6.8 K/mm3 (4.0-10.0)
[2024-02-22 08:30] LABS: INR 1.05 (0.83-1.09); PROTHROMBIN TIME (PATIENT) 12.1 SEC (9.7-13.0)
[2024-02-22 09:54] LABS: POTASSIUM 4.8 mmol/L (3.5-5.1)
[2024-02-22 09:56] LABS: ALBUMIN 3.3 g/dl (3.4-5.0); BLOOD UREA NITROGEN 7.6 mg/dL (7-18)
[2024-02-22 09:59] LABS: BILIRUBIN,DIRECT 0.1 mg/dL (0.0-0.2); CREATININE 0.6 mg/dL (0.55-1.3)
[2024-02-22 10:01] LABS: BILIRUBIN,TOTAL 0.3 mg/dL (0.2-1); TOT PROT 7.1 g/dl (6.4-8.2)
[2024-02-22] MEDS ORDERED: MIDAZOLAM HCL 2 MG/2 ML SINGLE DOSE VIAL ONE (11:18)
[2024-02-22] MEDS ORDERED: MIDAZOLAM HCL 2 MG/2 ML SINGLE DOSE VIAL IVPUSH ONE ×2 (12:15→12:30)
[2024-02-22] MEDS ORDERED: FENTANYL CITRATE/PF 50 MCG/ML VIAL IVPUSH ONE ×2 (12:15→12:30)
[2024-02-22 14:14] VITALS: RESP 18; TEMP 97.5
[2024-02-22 14:39] VITALS: BP 159/69; PULSE 84
[2024-02-22] MEDS ORDERED: ACETAMINOPHEN 325 MG TABLET (FP) ONE (14:51)
[2024-02-22] MEDS: ACETAMINOPHEN 325 MG TABLET (FP) PO ONE (15:20)
== END 2024-02-22 15:20 | disposition home or self-care (01) ==
LOC: JRADIR 04:32
PROVIDERS: ATTEND Student in an Organized Health Care Education/Training Program
PROC: 0JH63WZ Insertion of Totally Implantable Vascular Access Device into Chest Subcutaneous Tissue and Fascia, Percutaneous Approach (ICD-10-PCS; principal; 2024-02-22)
PROC: 05HM33Z Insertion of Infusion Device into Right Internal Jugular Vein, Percutaneous Approach (ICD-10-PCS; 2024-02-22)
PROC: B543ZZA Ultrasonography of Right Jugular Veins, Guidance (ICD-10-PCS; 2024-02-22)
DX: C50.911 Malignant neoplasm of unspecified site of right female breast (principal)
CPT/HCPCS: 36415; 36561; 36566; 80048; 80076; 82962; 84703; 85025; 85610

== ENCOUNTER 2024-02-22 15:09 | Day surgery (SDC) | payer OTHER ==
[2024-02-22] MEDS: PORTA CATH FLUSH 10 ML IVPUSH PRN (15:15)
[2024-02-22] MEDS: FOSAPREPITANT DIMEGLUMINE 150 MG in SODIUM CHLORIDE 145 ML IVPB ONE (15:20)
[2024-02-22] MEDS: ACETAMINOPHEN 325 MG TABLET (FP) PO ONE (15:21)
[2024-02-22] MEDS: DEXAMETHASONE SODIUM PHOSPHATE 10 MG, DIPHENHYDRAMINE 25 MG in SODIUM CHLORIDE 100 ML IVPB ONE (15:54)
[2024-02-22] MEDS: PALONOSETRON HCL 0.25 MG/5 ML VIAL IVPUSH ONE (16:30)
[2024-02-22] MEDS: FAMOTIDINE 20 MG/50 ML IVPB 20 MG/50 ML MG IVPB ONE (16:31)
[2024-02-22 16:48] VITALS: RESP 20
[2024-02-22] MEDS: SODIUM CHLORIDE IVPB ONE (17:09)
[2024-02-22] MEDS: [UNRECOGNIZED DRUG - OTHER] IVPB ONE (17:09)
[2024-02-22] MEDS ORDERED: PORTA CATH FLUSH 10 ML IVPUSH PRN (18:11)
[2024-02-22 21:02] VITALS: BP 153/84; PULSE 92; TEMP 98.3
== END 2024-02-22 21:07 | disposition home or self-care (01) ==
LOC: J7W 15:09 → JONCCHEMO 15:09
PROVIDERS: ATTEND Student in an Organized Health Care Education/Training Program
PROC: 3E04305 Introduction of Other Antineoplastic into Central Vein, Percutaneous Approach (ICD-10-PCS; principal; 2024-02-22)
PROC: 3E043GC Introduction of Other Therapeutic Substance into Central Vein, Percutaneous Approach (ICD-10-PCS; 2024-02-22)
DX: Z51.11 Encounter for antineoplastic chemotherapy (principal); C50.911 Malignant neoplasm of unspecified site of right female breast
CPT/HCPCS: 96367; 96375; 96413; 96415; J1453; J2469; J9317

== ENCOUNTER 2024-02-29 08:08 | Day surgery (SDC) | payer OTHER ==
[2024-02-29 09:01] LABS: BASO % 0.5 % (0-2.0); HEMATOCRIT 35.5 % (32.4-45.2); HEMOGLOBIN 12.1 GM/dL (10.7-15.3); MCH 29.9 pg (25.7-33.7); MEAN CELL VOLUME 88.1 fl (80-96); MEAN PLT VOLUME 7.8 fl (7.5-11.1); MONO % 9.2 % (3.8-10.2); NEUT % 67.3 % (42.8-82.8); PLATELET COUNT 200 10^3/uL (134-434); RBC 4.03 M/mm3 (3.60-5.2); RDW 13.9 % (11.6-15.6); WHITE BLOOD COUNT 5.4 K/mm3 (4.0-10.0)
[2024-02-29 09:08] LABS: CHLORIDE 99 mmol/L (98-107); POTASSIUM 4.9 mmol/L (3.5-5.1); SODIUM 133 mmol/L (136-145)
[2024-02-29 09:15] LABS: ALBUMIN 3.3 g/dl (3.4-5.0); ANION GAP 5 mmol/L (4-13); BLOOD UREA NITROGEN 8.6 mg/dL (7-18); CO2 30 mmol/L (21-32)
[2024-02-29 09:16] LABS: CALCIUM 8.7 mg/dL (8.5-10.1)
[2024-02-29 09:17] LABS: GLUCOSE,RANDOM 380 mg/dL (74-106)
[2024-02-29 09:19] LABS: BILIRUBIN,DIRECT 0.1 mg/dL (0.0-0.2); CREATININE 0.7 mg/dL (0.55-1.3); SGOT/AST 18 U/L (15-37); SGPT/ALT 32 U/L (13-61)
[2024-02-29 09:21] LABS: BILIRUBIN,TOTAL 0.3 mg/dL (0.2-1); TOT PROT 6.6 g/dl (6.4-8.2)
[2024-02-29 09:22] LABS: ALK PHOS 146 U/L (45-117)
[2024-02-29] MEDS: SODIUM CHLORIDE 1,000 ML IV ONE (11:30)
[2024-02-29] MEDS: FOSAPREPITANT DIMEGLUMINE 150 MG in SODIUM CHLORIDE 145 ML IVPB ONE (12:05)
[2024-02-29] MEDS: FAMOTIDINE 20 MG/50 ML IVPB 20 MG/50 ML MG IVPB ONE (13:03)
[2024-02-29] MEDS: ACETAMINOPHEN 325 MG TABLET (FP) PO ONE (13:04)
[2024-02-29] MEDS: PALONOSETRON HCL 0.25 MG/5 ML VIAL IVPUSH ONE (13:06)
[2024-02-29] MEDS: DEXAMETHASONE SODIUM PHOSPHATE 10 MG, DIPHENHYDRAMINE 25 MG in SODIUM CHLORIDE 100 ML IVPB ONE (13:41)
[2024-02-29] MEDS: [UNRECOGNIZED DRUG - OTHER] IVPB ONE (14:23)
[2024-02-29] MEDS: SODIUM CHLORIDE IVPB ONE (14:23)
[2024-02-29 16:48] VITALS: RESP 18; TEMP 98.1
[2024-02-29] MEDS: PORTA CATH FLUSH 10 ML IVPUSH PRN (16:58)
[2024-02-29 17:18] VITALS: BP 165/75; PULSE 85
== END 2024-02-29 17:15 | disposition home or self-care (01) ==
LOC: JONCCHEMO 08:08 → J7W 09:57 → JONCCHEMO 17:15
PROVIDERS: ATTEND Student in an Organized Health Care Education/Training Program
PROC: 3E043GC Introduction of Other Therapeutic Substance into Central Vein, Percutaneous Approach (ICD-10-PCS; principal; 2024-02-29)
PROC: 3E04305 Introduction of Other Antineoplastic into Central Vein, Percutaneous Approach (ICD-10-PCS; 2024-02-29)
DX: Z51.11 Encounter for antineoplastic chemotherapy (principal); C50.911 Malignant neoplasm of unspecified site of right female breast; I10 Essential (primary) hypertension; E11.9 Type 2 diabetes mellitus without complications
CPT/HCPCS: 36415; 80048; 80076; 82962; 85025; 96365; 96413; 96415; J1453; J9317

== ENCOUNTER 2024-03-01 14:19 | Day surgery (SDC) | payer OTHER ==
[2024-03-01] MEDS: PEGFILGRASTIM-CBQV (UDENYCA) 6 MG/0.6 ML SYRINGE SQ ONE (14:34)
[2024-03-01 18:37] VITALS: BP 157/84; PULSE 93; RESP 18; TEMP 97.8
== END 2024-03-01 14:30 | disposition home or self-care (01) ==
LOC: JONCCHEMO 14:19 → J7W 14:21 → JONCCHEMO 14:30
PROVIDERS: ATTEND Student in an Organized Health Care Education/Training Program
PROC: 3E013GC Introduction of Other Therapeutic Substance into Subcutaneous Tissue, Percutaneous Approach (ICD-10-PCS; principal; 2024-03-01)
DX: C50.919 Malignant neoplasm of unspecified site of unspecified female breast (principal); C78.7 Secondary malignant neoplasm of liver and intrahepatic bile duct; Z76.89 Persons encountering health services in other specified circumstances
CPT/HCPCS: 96372; Q5111

== ENCOUNTER 2024-03-14 09:50 | Day surgery (SDC) | payer OTHER ==
[2024-03-14 09:56] LABS: BASO % 0.5 % (0-2.0); HEMATOCRIT 35.2 % (32.4-45.2); HEMOGLOBIN 11.9 GM/dL (10.7-15.3); LYMPH % 11.4 % (8-40); MCH 29.8 pg (25.7-33.7); MCHC 33.9 g/dl (32.0-36.0); MEAN CELL VOLUME 87.7 fl (80-96); MEAN PLT VOLUME 8.2 fl (7.5-11.1); NEUT % 79.1 % (42.8-82.8); PLATELET COUNT 154 10^3/uL (134-434); RBC 4.01 M/mm3 (3.60-5.2); RDW 15.1 % (11.6-15.6); WHITE BLOOD COUNT 8.4 K/mm3 (4.0-10.0)
[2024-03-14] MEDS ORDERED: ACETAMINOPHEN 325 MG TABLET (FP) PO ONE (10:00)
[2024-03-14] MEDS ORDERED: FAMOTIDINE 20 MG/50 ML IVPB 20 MG/50 ML MG IVPB ONE (10:00)
[2024-03-14] MEDS ORDERED: PALONOSETRON HCL 0.25 MG/5 ML VIAL IVPUSH ONE (10:00)
[2024-03-14] MEDS ORDERED: DEXAMETHASONE SODIUM PHOSPHATE 10 MG, DIPHENHYDRAMINE 25 MG in SODIUM CHLORIDE 100 ML IVPB ONE (10:00)
[2024-03-14] MEDS ORDERED: FOSAPREPITANT DIMEGLUMINE 150 MG in SODIUM CHLORIDE 145 ML IVPB ONE (10:00)
[2024-03-14] MEDS: SODIUM CHLORIDE 1,000 ML IV ONE (10:30)
[2024-03-14] MEDS ORDERED: SODIUM CHLORIDE IVPB ONE (10:30)
[2024-03-14] MEDS ORDERED: [UNRECOGNIZED DRUG - OTHER] IVPB ONE (10:30)
[2024-03-14 11:07] LABS: CHLORIDE 100 mmol/L (98-107); POTASSIUM 4.8 mmol/L (3.5-5.1); SODIUM 134 mmol/L (136-145)
[2024-03-14 11:13] LABS: ALBUMIN 3.4 g/dl (3.4-5.0); ANION GAP 8 mmol/L (4-13); BLOOD UREA NITROGEN 11.4 mg/dL (7-18); CALCIUM 9.2 mg/dL (8.5-10.1); CO2 25 mmol/L (21-32)
[2024-03-14 11:18] LABS: BILIRUBIN,DIRECT 0.1 mg/dL (0.0-0.2); CREATININE 0.7 mg/dL (0.55-1.3); GLUCOSE,RANDOM 411 mg/dL (74-106); SGOT/AST 18 U/L (15-37); SGPT/ALT 25 U/L (13-61)
[2024-03-14 11:19] LABS: ALK PHOS 170 U/L (45-117); BILIRUBIN,TOTAL 0.2 mg/dL (0.2-1)
[2024-03-14 11:31] LABS: PH,URINE 5.5 (5.0-8.0); URINE APPEARANCE CLEAR; URINE BILIRUBIN NEGATIVE (NEGATIVE); URINE COLOR YELLOW; URINE GLUCOSE (UA) 3+ (NEGATIVE); URINE KETONE NEGATIVE (NEGATIVE); URINE LEUK ESTERASE NEGATIVE (NEGATIVE); URINE NITRITE NEGATIVE (NEGATIVE); URINE PROTEIN NEGATIVE (NEGATIVE); URINE UROBILINOGEN 0.2 mg/dL (0.2-1.0)
[2024-03-14] MEDS: PORTA CATH FLUSH 10 ML IVPUSH PRN (11:45)
[2024-03-14 15:51] VITALS: RESP 18; TEMP 98.1
[2024-03-14 15:57] VITALS: BP 148/75; PULSE 86
== END 2024-03-14 12:00 | disposition home or self-care (01) ==
LOC: JONCCHEMO 09:50
PROVIDERS: ATTEND Student in an Organized Health Care Education/Training Program
PROC: 3E0437Z Introduction of Electrolytic and Water Balance Substance into Central Vein, Percutaneous Approach (ICD-10-PCS; principal; 2024-03-14)
DX: Z76.89 Persons encountering health services in other specified circumstances (principal); C50.911 Malignant neoplasm of unspecified site of right female breast
CPT/HCPCS: 36415; 80048; 80076; 81003; 85025; 87086; 96360

== ENCOUNTER 2024-03-21 09:07 | Day surgery (SDC) | payer OTHER ==
[2024-03-21 09:29] LABS: BASO % 0.3 % (0-2.0); EOS % 6.3 % (0-4.5); HEMATOCRIT 35.8 % (32.4-45.2); HEMOGLOBIN 11.9 GM/dL (10.7-15.3); LYMPH % 19.4 % (8-40); MCH 29.3 pg (25.7-33.7); MCHC 33.4 g/dl (32.0-36.0); MEAN CELL VOLUME 87.7 fl (80-96); MEAN PLT VOLUME 7.8 fl (7.5-11.1); MONO % 8.6 % (3.8-10.2); NEUT % 65.4 % (42.8-82.8); PLATELET COUNT 216 10^3/uL (134-434); RBC 4.08 M/mm3 (3.60-5.2); RDW 15.8 % (11.6-15.6); WHITE BLOOD COUNT 6.2 K/mm3 (4.0-10.0)
[2024-03-21 09:57] LABS: CHLORIDE 99 mmol/L (98-107); POTASSIUM 4.8 mmol/L (3.5-5.1); SODIUM 132 mmol/L (136-145)
[2024-03-21 10:00] LABS: ALBUMIN 3.3 g/dl (3.4-5.0); ANION GAP 5 mmol/L (4-13); BLOOD UREA NITROGEN 7.7 mg/dL (7-18); CALCIUM 8.9 mg/dL (8.5-10.1); CO2 28 mmol/L (21-32); GLUCOSE,RANDOM 310 mg/dL (74-106)
[2024-03-21 10:02] LABS: BILIRUBIN,DIRECT 0.1 mg/dL (0.0-0.2)
[2024-03-21 10:03] LABS: CREATININE 0.6 mg/dL (0.55-1.3); SGOT/AST 23 U/L (15-37); SGPT/ALT 28 U/L (13-61)
[2024-03-21 10:04] LABS: BILIRUBIN,TOTAL 0.3 mg/dL (0.2-1); TOT PROT 6.8 g/dl (6.4-8.2)
[2024-03-21 10:09] LABS: ALK PHOS 132 U/L (45-117)
[2024-03-21] MEDS: DEXAMETHASONE SODIUM PHOSPHATE 10 MG, DIPHENHYDRAMINE 25 MG in DEXTROSE 5%-WATER - 100 ML IVPB ONE (11:36)
[2024-03-21] MEDS: PALONOSETRON HCL 0.25 MG/5 ML VIAL IVPUSH ONE (11:37)
[2024-03-21] MEDS: ACETAMINOPHEN 325 MG TABLET (FP) PO ONE (11:47)
[2024-03-21] MEDS: FOSAPREPITANT DIMEGLUMINE 150 MG in SODIUM CHLORIDE 145 ML IVPB ONE (12:35)
[2024-03-21] MEDS: FAMOTIDINE 20 MG/50 ML IVPB 20 MG/50 ML MG IVPB ONE (13:12)
[2024-03-21] MEDS: [UNRECOGNIZED DRUG - OTHER] IVPB ONE (14:14)
[2024-03-21] MEDS: SODIUM CHLORIDE IVPB ONE (14:14)
[2024-03-21] MEDS: PORTA CATH FLUSH 10 ML IVPUSH PRN (16:20)
[2024-03-21 16:42] VITALS: RESP 18; TEMP 98.1
[2024-03-21 16:47] VITALS: BP 170/90; PULSE 97
== END 2024-03-21 16:30 | disposition home or self-care (01) ==
LOC: JONCCHEMO 09:07 → J7W 09:07 → JONCCHEMO 16:30
PROVIDERS: ATTEND Student in an Organized Health Care Education/Training Program
DX: Z51.11 Encounter for antineoplastic chemotherapy (principal); C50.911 Malignant neoplasm of unspecified site of right female breast; C78.00 Secondary malignant neoplasm of unspecified lung
CPT/HCPCS: 36415; 80048; 80076; 85025; 96367; 96375; 96413; 96415; J1453; J9317

== ENCOUNTER 2024-03-26 10:08 | Inpatient (IN) | payer OTHER ==
[2024-03-26 11:39] LABS: BASO % 0.1 % (0-2.0); EOS % 0.8 % (0-4.5); HEMATOCRIT 31.9 % (32.4-45.2); HEMOGLOBIN 10.5 GM/dL (10.7-15.3); LYMPH % 6.7 % (8-40); MCH 29.7 pg (25.7-33.7); MCHC 32.8 g/dl (32.0-36.0); MEAN CELL VOLUME 90.8 fl (80-96); MEAN PLT VOLUME 8.1 fl (7.5-11.1); MONO % 5.2 % (3.8-10.2); NEUT % 87.2 % (42.8-82.8); PLATELET COUNT 43 10^3/uL (134-434); RBC 3.52 M/mm3 (3.60-5.2); RDW 15.2 % (11.6-15.6); WHITE BLOOD COUNT 6.4 K/mm3 (4.0-10.0)
[2024-03-26] MEDS ORDERED: ACETAMINOPHEN INJECTION 100 ML ONE (11:53)
[2024-03-26] MEDS: ACETAMINOPHEN 1000 MG/100 ML BAG IVPB ONE (12:07)
[2024-03-26 12:11] LABS: POTASSIUM 4.5 mmol/L (3.5-5.1)
[2024-03-26 12:13] LABS: ALBUMIN 3.5 g/dl (3.4-5.0)
[2024-03-26 12:16] LABS: CREATININE 0.8 mg/dL (0.55-1.3)
[2024-03-26 12:18] LABS: BILIRUBIN,TOTAL 0.6 mg/dL (0.2-1); TOT PROT 6.9 g/dl (6.4-8.2)
[2024-03-26 12:32] LABS: INR 1.18 (0.83-1.09); PROTHROMBIN TIME (PATIENT) 13.5 SEC (9.7-13.0)
[2024-03-26 12:38] LABS: POTASSIUM 4.3 mmol/L (3.5-5.1)
[2024-03-26 12:40] LABS: CALCIUM 8.2 mg/dL (8.5-10.1)
[2024-03-26 12:41] LABS: ALBUMIN 3.5 g/dl (3.4-5.0); BLOOD UREA NITROGEN 10.8 mg/dL (7-18)
[2024-03-26 12:44] LABS: CREATININE 0.8 mg/dL (0.55-1.3)
[2024-03-26 12:46] LABS: BILIRUBIN,TOTAL 0.6 mg/dL (0.2-1); TOT PROT 6.9 g/dl (6.4-8.2)
[2024-03-26 13:11] LABS: EPI CELLS 4 /uL (0-25.1); HYALINE CASTS 0 /uL (0-3.1); PH,URINE 7.5 (5.0-8.0); URINE APPEARANCE CLOUDY; URINE BACTERIA >9,000 /uL (0-1359); URINE BILIRUBIN NEGATIVE (NEGATIVE); URINE COLOR YELLOW; URINE GLUCOSE (UA) 2+ (NEGATIVE); URINE KETONE NEGATIVE (NEGATIVE); URINE LEUK ESTERASE 3+ (NEGATIVE); URINE NITRITE POSITIVE (NEGATIVE); URINE PROTEIN TRACE (NEGATIVE); URINE RBC 23 /uL (0-23.9); URINE UROBILINOGEN 0.2 mg/dL (0.2-1.0); URINE WBC 2222 /uL (0-25.8)
[2024-03-26] MEDS ORDERED: CEFTRIAXONE 1 GM/50 ML BAG ONE (13:38)
[2024-03-26 13:39] LABS: YEAST NONE SEEN (NEGATIVE)
[2024-03-26] MEDS: CEFTRIAXONE 1 GM in DEXTROSE 5%-WATER - 100 ML IVPB ONE (13:51)
[2024-03-26] MEDS ORDERED: KETOROLAC TROMETHAMINE 15 MG/ML VIAL ONE ×2 (15:41→15:47)
[2024-03-26] MEDS: KETOROLAC TROMETHAMINE 30 MG/1 ML VIAL IVPUSH ONE (15:51)
[2024-03-26 18:22] VITALS: BMI 31.8
[2024-03-26] MEDS: ACETAMINOPHEN 325 MG TABLET (FP) PO PRN (19:53)
[2024-03-26] MEDS: SODIUM CHLORIDE 1,000 ML IV STA (20:53)
[2024-03-26] MEDS: PIPERACILLIN/TAZOB 3.375 GM 50 ML IVPB SCH (20:54)
[2024-03-26] MEDS: METOPROLOL TARTRATE 50 MG TABLET (FP) PO SCH (22:38)
[2024-03-26] MEDS: PANTOPRAZOLE 40 MG TABLET PO SCH (22:39)
[2024-03-26] MEDS: INSULIN ASPART SLIDING SCALE (NOVOLOG) 1 VIAL SQ SCH (22:42)
[2024-03-26] MEDS: QUEtiapine FUMARATE 300 MG TABLET PO SCH (23:13)
[2024-03-26] MEDS: AMITRIPTYLINE HCL 75 MG TABLET PO SCH (23:13)
[2024-03-27] MEDS: SODIUM CHLORIDE 1,000 ML IV STA (05:41)
[2024-03-27] MEDS: ENOXAPARIN NA (PORCINE) 40 MG/0.4 ML DISP.SYRIN SQ SCH (09:40)
[2024-03-27 09:58] LABS: BASO % 0.5 % (0-2.0); EOS % 1.1 % (0-4.5); HEMATOCRIT 31.5 % (32.4-45.2); HEMOGLOBIN 10.9 GM/dL (10.7-15.3); MCH 30.4 pg (25.7-33.7); MCHC 34.8 g/dl (32.0-36.0); MEAN CELL VOLUME 87.4 fl (80-96); MEAN PLT VOLUME 7.8 fl (7.5-11.1); MONO % 7.6 % (3.8-10.2); NEUT % 82.8 % (42.8-82.8); PLATELET COUNT 151 10^3/uL (134-434); WHITE BLOOD COUNT 4.9 K/mm3 (4.0-10.0)
[2024-03-27 10:11] LABS: POTASSIUM 3.7 mmol/L (3.5-5.1)
[2024-03-27 10:20] LABS: BLOOD UREA NITROGEN 16.2 mg/dL (7-18); CREATININE 0.9 mg/dL (0.55-1.3)
[2024-03-27 10:21] LABS: BILIRUBIN,TOTAL 0.5 mg/dL (0.2-1); TOT PROT 5.8 g/dl (6.4-8.2)
[2024-03-27 10:22] LABS: ALBUMIN 2.8 g/dl (3.4-5.0)
[2024-03-27 10:46] LABS: CALCIUM 7.9 mg/dL (8.5-10.1)
[2024-03-27] MEDS: guaiFENesin 200 MG/10 ML 10 ML UNIT-DOSE CUPS PO PRN (12:36)
[2024-03-27] MEDS: PIPERACILLIN/TAZOB 3.375 GM 50 ML IVPB SCH (18:05)
[2024-03-27] MEDS: PIPERACILLIN/TAZOB 3.375 GM 3.375 GM in DEXTROSE 5%-WATER - 50 ML IVPB SCH (18:18)
[2024-03-28 10:52] LABS: HEMATOCRIT 31.7 % (32.4-45.2); HEMOGLOBIN 10.6 GM/dL (10.7-15.3); MCH 29.4 pg (25.7-33.7); MCHC 33.3 g/dl (32.0-36.0); MEAN CELL VOLUME 88.2 fl (80-96); MEAN PLT VOLUME 8.4 fl (7.5-11.1); PLATELET COUNT 158 10^3/uL (134-434); RDW 15.9 % (11.6-15.6); WHITE BLOOD COUNT 3.6 K/mm3 (4.0-10.0)
[2024-03-28 11:14] LABS: POTASSIUM 4.1 mmol/L (3.5-5.1)
[2024-03-28 11:16] LABS: CALCIUM 8.1 mg/dL (8.5-10.1)
[2024-03-28 11:20] LABS: CREATININE 0.7 mg/dL (0.55-1.3)
[2024-03-28 11:46] LABS: ANISOCYTOSIS 0; HELMET CELLS 0; HOWELL-JOLLY BODIES 0; MACROCYTOSIS 0; OVALOCYTE 0; ROULEAU 0; SICKELED CELLS 0; TARGET CELLS 0; TEAR DROP CELLS 0; TOXIC GRANULATION 0
[2024-03-28] MEDS: guaiFENesin 600 MG TABLET.ER (FP) PO SCH (21:16)
[2024-03-29] MEDS: IBUPROFEN 800 MG/8 ML IJ IVPB ONE (07:55)
[2024-03-29 09:00] LABS: HEMOGLOBIN 10.7 GM/dL (10.7-15.3); MCH 29.1 pg (25.7-33.7); MCHC 33.5 g/dl (32.0-36.0); MEAN CELL VOLUME 86.9 fl (80-96); MEAN PLT VOLUME 8.3 fl (7.5-11.1); PLATELET COUNT 169 10^3/uL (134-434); RBC 3.68 M/mm3 (3.60-5.2)
[2024-03-29 09:19] LABS: POTASSIUM 4.1 mmol/L (3.5-5.1)
[2024-03-29 09:25] LABS: ALBUMIN 3.1 g/dl (3.4-5.0); BLOOD UREA NITROGEN 9.1 mg/dL (7-18); CALCIUM 8.3 mg/dL (8.5-10.1)
[2024-03-29 09:28] LABS: CREATININE 0.6 mg/dL (0.55-1.3)
[2024-03-29 09:30] LABS: BILIRUBIN,TOTAL 0.4 mg/dL (0.2-1); TOT PROT 6.3 g/dl (6.4-8.2)
[2024-03-29 10:20] LABS: ANISOCYTOSIS 0; HELMET CELLS 0; HOWELL-JOLLY BODIES 0; MACROCYTOSIS 0; OVALOCYTE 0; ROULEAU 0; SICKELED CELLS 0; TARGET CELLS 0; TEAR DROP CELLS 0; TOXIC GRANULATION 0
[2024-03-29] MEDS: LORATADINE 10 MG TABLET PO SCH (12:13)
[2024-03-29] MEDS: CEFTRIAXONE 1 G/50 ML PREMIX 50 ML IVPB SCH (12:14)
[2024-03-29] MEDS: BUDESONIDE/FORMETEROL FUMARATE 160/4.5 mcg INHALER IH SCH (12:25)
[2024-03-29] MEDS: FLUTICASONE PROP 0.05% 16 GM NASAL SPRAY NS SCH (12:25)
[2024-03-29] MEDS: guaiFENesin/D-METHORPHAN HB 10 ML UNIT-DOSE CUPS PO PRN (17:06)
[2024-03-30] MEDS ORDERED: guaiFENesin/CODEINE 5 ML UNIT-DOSE CUPS PO PRN (08:55)
[2024-03-30 09:11] LABS: BASO % 0.5 % (0-2.0); HEMATOCRIT 32.3 % (32.4-45.2); LYMPH % 26.1 % (8-40); MCH 29.5 pg (25.7-33.7); MCHC 34.1 g/dl (32.0-36.0); MEAN CELL VOLUME 86.7 fl (80-96); MEAN PLT VOLUME 8.2 fl (7.5-11.1); MONO % 13.8 % (3.8-10.2); NEUT % 51.6 % (42.8-82.8); PLATELET COUNT 201 10^3/uL (134-434); RBC 3.72 M/mm3 (3.60-5.2); WHITE BLOOD COUNT 3.5 K/mm3 (4.0-10.0)
[2024-03-30 09:19] LABS: POTASSIUM 4.3 mmol/L (3.5-5.1)
[2024-03-30 09:27] LABS: CREATININE 0.6 mg/dL (0.55-1.3)
[2024-03-30 09:29] LABS: BILIRUBIN,TOTAL 0.3 mg/dL (0.2-1); TOT PROT 6.7 g/dl (6.4-8.2)
[2024-03-30 09:31] LABS: ALBUMIN 3.3 g/dl (3.4-5.0); BLOOD UREA NITROGEN 6.3 mg/dL (7-18)
[2024-03-30] MEDS: CLOTRIMAZOLE/BETAMET DIPROP 15 GM TUBE TP SCH (21:40)
[2024-03-30] MEDS: CODEINE SO4 30 MG TABLET PO PRN (22:32)
[2024-03-31 09:37] LABS: BASO % 0.5 % (0-2.0); EOS % 6.6 % (0-4.5); HEMATOCRIT 32.4 % (32.4-45.2); LYMPH % 22.1 % (8-40); MCH 29.5 pg (25.7-33.7); MCHC 34.1 g/dl (32.0-36.0); MEAN CELL VOLUME 86.7 fl (80-96); MEAN PLT VOLUME 7.9 fl (7.5-11.1); MONO % 13.4 % (3.8-10.2); NEUT % 57.4 % (42.8-82.8); PLATELET COUNT 208 10^3/uL (134-434); RBC 3.74 M/mm3 (3.60-5.2); RDW 15.9 % (11.6-15.6); WHITE BLOOD COUNT 4.4 K/mm3 (4.0-10.0)
[2024-03-31 10:16] LABS: CREATININE 0.6 mg/dL (0.55-1.3)
[2024-03-31 11:02] VITALS: BP 158/83; PULSE 97; RESP 19; TEMP 97.2
[2024-03-31] MEDS ORDERED: INSULIN (LEVEMIR) 100 UNITS/ML UNITS SQ ONE (11:58)
== END 2024-03-31 14:12 | disposition home or self-care (01) | DRG 463 ==
LOC: JER 10:08 → JERBED 16:18 → OBSVTOIN 18:36 → J7W 18:54
PROVIDERS: ADMIT Student in an Organized Health Care Education/Training Program; ATTEND Internal Medicine
DX: N39.0 Urinary tract infection, site not specified (principal); I10 Essential (primary) hypertension; E78.5 Hyperlipidemia, unspecified; E11.9 Type 2 diabetes mellitus without complications; C79.31 Secondary malignant neoplasm of brain; C50.919 Malignant neoplasm of unspecified site of unspecified female breast; C78.00 Secondary malignant neoplasm of unspecified lung; C78.7 Secondary malignant neoplasm of liver and intrahepatic bile duct; E87.1 Hypo-osmolality and hyponatremia; B96.20 Unspecified Escherichia coli [E. coli] as the cause of diseases classified elsewhere
CPT/HCPCS: 0241U-QW; 36415; 71045-TC-FY; 71275-TC; 80048; 80053; 81003; 82962; 84484; 85025; 85610; 87040; 87086; 87186; 93005; 93010; 99285-25; G0378; J0131; Q9967

== ENCOUNTER 2024-04-10 08:07 | Day surgery (SDC) | payer OTHER ==
[2024-04-10 09:08] LABS: BASO % 0.7 % (0-2.0); HEMATOCRIT 35.1 % (32.4-45.2); HEMOGLOBIN 11.9 GM/dL (10.7-15.3); LYMPH % 12.8 % (8-40); MCH 29.5 pg (25.7-33.7); MCHC 33.8 g/dl (32.0-36.0); MEAN CELL VOLUME 87.3 fl (80-96); MEAN PLT VOLUME 7.6 fl (7.5-11.1); MONO % 7.5 % (3.8-10.2); PLATELET COUNT 238 10^3/uL (134-434); RBC 4.01 M/mm3 (3.60-5.2); RDW 16.7 % (11.6-15.6); WHITE BLOOD COUNT 7.5 K/mm3 (4.0-10.0)
[2024-04-10 09:29] LABS: POTASSIUM 4.8 mmol/L (3.5-5.1)
[2024-04-10 09:31] LABS: CALCIUM 9.6 mg/dL (8.5-10.1)
[2024-04-10 09:32] LABS: ALBUMIN 3.5 g/dl (3.4-5.0); BLOOD UREA NITROGEN 9.2 mg/dL (7-18)
[2024-04-10 09:35] LABS: BILIRUBIN,DIRECT 0.1 mg/dL (0.0-0.2); CREATININE 0.7 mg/dL (0.55-1.3)
[2024-04-10 09:36] LABS: BILIRUBIN,TOTAL 0.3 mg/dL (0.2-1); TOT PROT 7.2 g/dl (6.4-8.2)
[2024-04-10] MEDS: FOSAPREPITANT DIMEGLUMINE 150 MG in SODIUM CHLORIDE 145 ML IVPB ONE (09:42)
[2024-04-10] MEDS: DEXAMETHASONE SODIUM PHOSPHATE 10 MG, DIPHENHYDRAMINE 25 MG in DEXTROSE 5%-WATER - 100 ML IVPB ONE (11:52)
[2024-04-10] MEDS: ACETAMINOPHEN 325 MG TABLET (FP) PO ONE (12:00)
[2024-04-10] MEDS: FAMOTIDINE 20 MG/50 ML IVPB 20 MG/50 ML MG IVPB ONE (12:28)
[2024-04-10] MEDS: PALONOSETRON HCL 0.25 MG/5 ML VIAL IVPUSH ONE (12:28)
[2024-04-10] MEDS: SODIUM CHLORIDE IVPB ONE (13:10)
[2024-04-10] MEDS: [UNRECOGNIZED DRUG - OTHER] IVPB ONE (13:10)
[2024-04-10 15:17] VITALS: TEMP 98.7
[2024-04-10 15:27] VITALS: RESP 18
[2024-04-10] MEDS: PORTA CATH FLUSH 10 ML IVPUSH PRN (15:57)
[2024-04-10 15:58] VITALS: BP 170/84; PULSE 91
== END 2024-04-10 15:59 | disposition home or self-care (01) ==
LOC: JONCCHEMO 08:07 → J7W 08:08 → JONCCHEMO 15:59
PROVIDERS: ATTEND Student in an Organized Health Care Education/Training Program
DX: Z51.11 Encounter for antineoplastic chemotherapy (principal); C50.911 Malignant neoplasm of unspecified site of right female breast; C78.7 Secondary malignant neoplasm of liver and intrahepatic bile duct; C79.31 Secondary malignant neoplasm of brain; C78.00 Secondary malignant neoplasm of unspecified lung
CPT/HCPCS: 36415; 80048; 80076; 85025; 96367; 96375; 96413; 96415; J1453; J2997; J9317

== ENCOUNTER 2024-04-17 08:00 | Day surgery (SDC) | payer OTHER ==
[2024-04-17 08:42] LABS: BASO % 0.8 % (0-2.0); EOS % 7.4 % (0-4.5); HEMATOCRIT 35.3 % (32.4-45.2); HEMOGLOBIN 12.1 GM/dL (10.7-15.3); LYMPH % 19.1 % (8-40); MCH 29.9 pg (25.7-33.7); MCHC 34.1 g/dl (32.0-36.0); MEAN CELL VOLUME 87.6 fl (80-96); MONO % 7.4 % (3.8-10.2); NEUT % 65.3 % (42.8-82.8); PLATELET COUNT 212 10^3/uL (134-434); RBC 4.04 M/mm3 (3.60-5.2); RDW 15.9 % (11.6-15.6)
[2024-04-17 09:28] LABS: CHLORIDE 100 mmol/L (98-107); POTASSIUM 4.8 mmol/L (3.5-5.1); SODIUM 133 mmol/L (136-145)
[2024-04-17 09:30] LABS: CALCIUM 8.8 mg/dL (8.5-10.1)
[2024-04-17 09:32] LABS: ALBUMIN 3.6 g/dl (3.4-5.0); ANION GAP 3 mmol/L (4-13); CO2 30 mmol/L (21-32)
[2024-04-17 09:33] LABS: GLUCOSE,RANDOM 428 mg/dL (74-106)
[2024-04-17 09:34] LABS: BILIRUBIN,DIRECT 0.1 mg/dL (0.0-0.2); CREATININE 0.7 mg/dL (0.55-1.3); SGOT/AST 13 U/L (15-37)
[2024-04-17 09:36] LABS: BILIRUBIN,TOTAL 0.3 mg/dL (0.2-1); TOT PROT 6.8 g/dl (6.4-8.2)
[2024-04-17 09:40] LABS: ALK PHOS 166 U/L (45-117); SGPT/ALT 29 U/L (13-61)
[2024-04-17] MEDS: FOSAPREPITANT DIMEGLUMINE 150 MG in SODIUM CHLORIDE 145 ML IVPB ONE (10:08)
[2024-04-17] MEDS: FAMOTIDINE 20 MG/50 ML IVPB 20 MG/50 ML MG IVPB ONE (10:51)
[2024-04-17] MEDS: PALONOSETRON HCL 0.25 MG/5 ML VIAL IVPUSH ONE (10:53)
[2024-04-17] MEDS: ACETAMINOPHEN 325 MG TABLET (FP) PO ONE (10:54)
[2024-04-17] MEDS: DEXAMETHASONE SODIUM PHOSPHATE 10 MG, DIPHENHYDRAMINE 25 MG in DEXTROSE 5%-WATER - 100 ML IVPB ONE (11:24)
[2024-04-17] MEDS: SODIUM CHLORIDE IVPB ONE (12:06)
[2024-04-17] MEDS: [UNRECOGNIZED DRUG - OTHER] IVPB ONE (12:06)
[2024-04-17] MEDS: PORTA CATH FLUSH 10 ML IVPUSH PRN (14:30)
[2024-04-17 15:37] VITALS: BP 152/84; PULSE 87; RESP 18; TEMP 98.7
== END 2024-04-17 14:45 | disposition home or self-care (01) ==
LOC: JONCCHEMO 08:00 → J7W 08:00 → JONCCHEMO 14:45
PROVIDERS: ATTEND Student in an Organized Health Care Education/Training Program
PROC: 3E04305 Introduction of Other Antineoplastic into Central Vein, Percutaneous Approach (ICD-10-PCS; principal; 2024-04-17)
PROC: 3E043GC Introduction of Other Therapeutic Substance into Central Vein, Percutaneous Approach (ICD-10-PCS; 2024-04-17)
DX: Z51.11 Encounter for antineoplastic chemotherapy (principal); C50.911 Malignant neoplasm of unspecified site of right female breast
CPT/HCPCS: 36415; 80048; 80076; 85025; 96366; 96367; 96413; 96415; J1453; J9317

== ENCOUNTER → 2024-04-18 14:30 | Day surgery (SDC) | payer OTHER ==
[2024-04-18] MEDS: PEGFILGRASTIM-CBQV (UDENYCA) 6 MG/0.6 ML SYRINGE SQ ONE (14:24)
[2024-04-18 15:42] VITALS: BP 156/71; PULSE 94; RESP 20; TEMP 98.2
== END | disposition home or self-care (01) ==
LOC: JONCCHEMO 14:30 → J7W 14:31
PROVIDERS: ATTEND Student in an Organized Health Care Education/Training Program
PROC: 3E013GC Introduction of Other Therapeutic Substance into Subcutaneous Tissue, Percutaneous Approach (ICD-10-PCS; principal; 2024-04-18)
DX: C50.911 Malignant neoplasm of unspecified site of right female breast (principal); Z76.89 Persons encountering health services in other specified circumstances
CPT/HCPCS: 96372; Q5111

== ENCOUNTER 2024-05-01 09:49 | Day surgery (SDC) | payer OTHER ==
[2024-05-01 09:02] LABS: BASO % 0.5 % (0-2.0); EOS % 3.2 % (0-4.5); HEMATOCRIT 34.3 % (32.4-45.2); HEMOGLOBIN 11.3 GM/dL (10.7-15.3); LYMPH % 9.9 % (8-40); MCH 29.2 pg (25.7-33.7); MEAN CELL VOLUME 88.5 fl (80-96); MEAN PLT VOLUME 8.2 fl (7.5-11.1); MONO % 5.2 % (3.8-10.2); NEUT % 81.2 % (42.8-82.8); PLATELET COUNT 130 10^3/uL (134-434); RBC 3.88 M/mm3 (3.60-5.2); RDW 17.2 % (11.6-15.6); WHITE BLOOD COUNT 12.2 K/mm3 (4.0-10.0)
[2024-05-01 09:27] LABS: CHLORIDE 100 mmol/L (98-107); POTASSIUM 4.8 mmol/L (3.5-5.1); SODIUM 135 mmol/L (136-145)
[2024-05-01 09:30] LABS: ALBUMIN 3.4 g/dl (3.4-5.0); ANION GAP 6 mmol/L (4-13); CALCIUM 8.5 mg/dL (8.5-10.1); CO2 29 mmol/L (21-32); GLUCOSE,RANDOM 318 mg/dL (74-106)
[2024-05-01 09:33] LABS: BILIRUBIN,DIRECT 0.1 mg/dL (0.0-0.2); CREATININE 0.8 mg/dL (0.55-1.3); SGOT/AST 15 U/L (15-37); SGPT/ALT 23 U/L (13-61)
[2024-05-01 09:35] LABS: BILIRUBIN,TOTAL 0.3 mg/dL (0.2-1); TOT PROT 6.6 g/dl (6.4-8.2)
[2024-05-01 09:36] LABS: ALK PHOS 214 U/L (45-117)
[~2024-05-01 09:49] MED LIST changes: +FOSAPREPITANT DIMEGLUMINE 150 MG in SODIUM CHLORIDE 145 ML IVPB ONE; -GEMCITABINE HCL IV ONE; -GRANISETRON HCL/PF 1 MG in SODIUM CHLORIDE 50 ML IVPB ONE; -SODIUM CHLORIDE IV ONE
[2024-05-01] MEDS: FOSAPREPITANT DIMEGLUMINE 150 MG in SODIUM CHLORIDE 145 ML IVPB ONE (11:35)
[2024-05-01] MEDS: ACETAMINOPHEN 325 MG TABLET (FP) PO ONE (12:08)
[2024-05-01] MEDS: DEXAMETHASONE SODIUM PHOSPHATE 10 MG, DIPHENHYDRAMINE 25 MG in DEXTROSE 5%-WATER - 100 ML IVPB ONE (12:10)
[2024-05-01] MEDS: FAMOTIDINE 20 MG/50 ML IVPB 20 MG/50 ML MG IVPB ONE (12:54)
[2024-05-01] MEDS: PALONOSETRON HCL 0.25 MG/5 ML VIAL IVPUSH ONE (12:54)
[2024-05-01] MEDS: SODIUM CHLORIDE IVPB ONE (13:24)
[2024-05-01] MEDS: [UNRECOGNIZED DRUG - OTHER] IVPB ONE (13:24)
[2024-05-01] MEDS: PORTA CATH FLUSH 10 ML IVPUSH PRN (15:45)
[2024-05-01 15:54] VITALS: RESP 18; TEMP 98.3
[2024-05-01 15:56] VITALS: BP 175/80; PULSE 96
== END 2024-05-01 15:45 | disposition home or self-care (01) ==
LOC: JONCCHEMO 09:49 → J7W 09:51 → JONCCHEMO 15:45
PROVIDERS: ATTEND Student in an Organized Health Care Education/Training Program
PROC: 3E04305 Introduction of Other Antineoplastic into Central Vein, Percutaneous Approach (ICD-10-PCS; principal; 2024-05-01)
PROC: 3E043GC Introduction of Other Therapeutic Substance into Central Vein, Percutaneous Approach (ICD-10-PCS; 2024-05-01)
DX: Z51.11 Encounter for antineoplastic chemotherapy (principal); C50.911 Malignant neoplasm of unspecified site of right female breast
CPT/HCPCS: 36415; 80048; 80076; 85025; 96367; 96375; 96413; J1453; J9317

== ENCOUNTER 2024-05-08 10:06 | Day surgery (SDC) | payer OTHER ==
[~2024-05-08 10:06] MED LIST changes: +FAMOTIDINE 20 MG/50 ML IVPB 20 MG/50 ML MG IVPB ONE; -FOSAPREPITANT DIMEGLUMINE 150 MG in SODIUM CHLORIDE 145 ML IVPB ONE; +SODIUM CHLORIDE IVPB ONE; +[UNRECOGNIZED DRUG - OTHER] IVPB ONE
[2024-05-08 10:29] LABS: BASO % 0.6 % (0-2.0); EOS % 4.6 % (0-4.5); HEMATOCRIT 34.9 % (32.4-45.2); HEMOGLOBIN 11.3 GM/dL (10.7-15.3); MCHC 32.5 g/dl (32.0-36.0); MEAN CELL VOLUME 89.2 fl (80-96); MEAN PLT VOLUME 7.7 fl (7.5-11.1); MONO % 6.7 % (3.8-10.2); NEUT % 74.1 % (42.8-82.8); PLATELET COUNT 268 10^3/uL (134-434); RBC 3.92 M/mm3 (3.60-5.2); RDW 17.6 % (11.6-15.6); WHITE BLOOD COUNT 7.2 K/mm3 (4.0-10.0)
[2024-05-08 11:00] LABS: CHLORIDE 101 mmol/L (98-107); POTASSIUM 4.6 mmol/L (3.5-5.1); SODIUM 135 mmol/L (136-145)
[2024-05-08 11:01] LABS: ALBUMIN 3.7 g/dl (3.4-5.0); CALCIUM 9.3 mg/dL (8.5-10.1)
[2024-05-08 11:02] LABS: ANION GAP 5 mmol/L (4-13); BLOOD UREA NITROGEN 5.8 mg/dL (7-18); CO2 28 mmol/L (21-32); GLUCOSE,RANDOM 220 mg/dL (74-106)
[2024-05-08 11:05] LABS: BILIRUBIN,DIRECT 0.1 mg/dL (0.0-0.2); CREATININE 0.6 mg/dL (0.55-1.3); SGOT/AST 19 U/L (15-37); SGPT/ALT 28 U/L (13-61)
[2024-05-08 11:06] LABS: BILIRUBIN,TOTAL 0.3 mg/dL (0.2-1)
[2024-05-08 11:07] LABS: TOT PROT 6.7 g/dl (6.4-8.2)
[2024-05-08 11:11] LABS: ALK PHOS 138 U/L (45-117)
[2024-05-08] MEDS: FOSAPREPITANT DIMEGLUMINE 150 MG in SODIUM CHLORIDE 145 ML IVPB ONE (11:35)
[2024-05-08] MEDS: PALONOSETRON HCL 0.25 MG/5 ML VIAL IVPUSH ONE (11:39)
[2024-05-08] MEDS: ACETAMINOPHEN 325 MG TABLET (FP) PO ONE (11:39)
[2024-05-08] MEDS: DEXAMETHASONE SODIUM PHOSPHATE 10 MG, DIPHENHYDRAMINE 25 MG in SODIUM CHLORIDE 100 ML IVPB ONE (12:14)
[2024-05-08] MEDS: FAMOTIDINE 20 MG/50 ML IVPB 20 MG/50 ML MG IVPB ONE (13:04)
[2024-05-08] MEDS: SODIUM CHLORIDE IVPB ONE (13:35)
[2024-05-08] MEDS: [UNRECOGNIZED DRUG - OTHER] IVPB ONE (13:35)
[2024-05-08] MEDS: PORTA CATH FLUSH 10 ML IVPUSH PRN (15:45)
[2024-05-08 16:31] VITALS: TEMP 98.2
[2024-05-08 16:40] VITALS: BP 174/76; PULSE 97; RESP 16
== END 2024-05-08 15:45 | disposition home or self-care (01) ==
LOC: JONCBLOOD 10:06 → J7W 10:07 → JONCBLOOD 15:45
PROVIDERS: ATTEND Student in an Organized Health Care Education/Training Program
PROC: 3E013GC Introduction of Other Therapeutic Substance into Subcutaneous Tissue, Percutaneous Approach (ICD-10-PCS; principal; 2024-05-08)
DX: C50.911 Malignant neoplasm of unspecified site of right female breast (principal)
CPT/HCPCS: 36415; 80048; 80076; 85025; 96372; J1453; J9317

== ENCOUNTER 2024-05-09 14:30 | Day surgery (SDC) | payer OTHER ==
[2024-05-09] MEDS: PEGFILGRASTIM-CBQV (UDENYCA) 6 MG/0.6 ML SYRINGE SQ ONE (14:34)
[2024-05-09 18:00] VITALS: BP 180/87; PULSE 94; RESP 20; TEMP 98.1
== END 2024-05-09 14:40 | disposition home or self-care (01) ==
LOC: J7W 14:30 → JONCCHEMO 14:30
PROVIDERS: ATTEND Student in an Organized Health Care Education/Training Program
PROC: 3E013GC Introduction of Other Therapeutic Substance into Subcutaneous Tissue, Percutaneous Approach (ICD-10-PCS; principal; 2024-05-09)
DX: C50.911 Malignant neoplasm of unspecified site of right female breast (principal); C78.02 Secondary malignant neoplasm of left lung; C78.01 Secondary malignant neoplasm of right lung; Z76.89 Persons encountering health services in other specified circumstances
CPT/HCPCS: 96372; Q5111

== ENCOUNTER 2024-05-22 08:19 | Day surgery (SDC) | payer OTHER ==
[2024-05-22 09:03] LABS: BASO % 0.4 % (0-2.0); EOS % 3.7 % (0-4.5); HEMATOCRIT 35.4 % (32.4-45.2); HEMOGLOBIN 11.7 GM/dL (10.7-15.3); LYMPH % 9.8 % (8-40); MCH 29.8 pg (25.7-33.7); MCHC 33.2 g/dl (32.0-36.0); MEAN CELL VOLUME 89.9 fl (80-96); MEAN PLT VOLUME 7.9 fl (7.5-11.1); MONO % 4.4 % (3.8-10.2); NEUT % 81.7 % (42.8-82.8); PLATELET COUNT 151 10^3/uL (134-434); RBC 3.94 M/mm3 (3.60-5.2); RDW 18.4 % (11.6-15.6); WHITE BLOOD COUNT 15.7 K/mm3 (4.0-10.0)
[2024-05-22 09:26] LABS: CHLORIDE 95 mmol/L (98-107); POTASSIUM 4.8 mmol/L (3.5-5.1); SODIUM 132 mmol/L (136-145)
[2024-05-22 09:28] LABS: CALCIUM 8.5 mg/dL (8.5-10.1)
[2024-05-22 09:29] LABS: ALBUMIN 3.6 g/dl (3.4-5.0); ANION GAP 5 mmol/L (4-13); BLOOD UREA NITROGEN 14.4 mg/dL (7-18); CO2 31 mmol/L (21-32); GLUCOSE,RANDOM 263 mg/dL (74-106)
[2024-05-22 09:32] LABS: BILIRUBIN,DIRECT 0.1 mg/dL (0.0-0.2); CREATININE 0.7 mg/dL (0.55-1.3); SGOT/AST 16 U/L (15-37)
[2024-05-22 09:33] LABS: SGPT/ALT 29 U/L (13-61)
[2024-05-22 09:35] LABS: ALK PHOS 186 U/L (45-117); BILIRUBIN,TOTAL 0.3 mg/dL (0.2-1); TOT PROT 6.2 g/dl (6.4-8.2)
[2024-05-22] MEDS: ACETAMINOPHEN 325 MG TABLET (FP) PO ONE (10:43)
[2024-05-22] MEDS: FOSAPREPITANT DIMEGLUMINE 150 MG in SODIUM CHLORIDE 145 ML IVPB ONE (10:44)
[2024-05-22] MEDS: PALONOSETRON HCL 0.25 MG/5 ML VIAL IVPUSH ONE (11:22)
[2024-05-22] MEDS: DEXAMETHASONE SODIUM PHOSPHATE 10 MG, DIPHENHYDRAMINE 25 MG in SODIUM CHLORIDE 100 ML IVPB ONE (11:26)
[2024-05-22] MEDS: FAMOTIDINE 20 MG/50 ML IVPB 20 MG/50 ML MG IVPB ONE (11:55)
[2024-05-22] MEDS: SODIUM CHLORIDE IVPB ONE (12:37)
[2024-05-22] MEDS: [UNRECOGNIZED DRUG - OTHER] IVPB ONE (12:37)
[2024-05-22 17:04] VITALS: TEMP 98.3
[2024-05-22 17:21] VITALS: BP 141/63; PULSE 84; RESP 20
[2024-05-22] MEDS ORDERED: PORTA CATH FLUSH 10 ML IVPUSH PRN (17:21)
== END 2024-05-22 15:30 | disposition home or self-care (01) ==
LOC: JONCCHEMO 08:19 → J7W 08:22 → JONCCHEMO 15:30
PROVIDERS: ATTEND Student in an Organized Health Care Education/Training Program
PROC: 3E04305 Introduction of Other Antineoplastic into Central Vein, Percutaneous Approach (ICD-10-PCS; principal; 2024-05-22)
PROC: 3E043GC Introduction of Other Therapeutic Substance into Central Vein, Percutaneous Approach (ICD-10-PCS; 2024-05-22)
DX: Z51.11 Encounter for antineoplastic chemotherapy (principal); C50.911 Malignant neoplasm of unspecified site of right female breast
CPT/HCPCS: 36415; 80048; 80076; 85025; 96365; 96366; 96413; 96415; J1453; J2997; J9317

== ENCOUNTER 2024-05-29 08:29 | Day surgery (SDC) | payer OTHER ==
[2024-05-29 08:57] LABS: BASO % 0.8 % (0-2.0); EOS % 4.6 % (0-4.5); HEMATOCRIT 33.1 % (32.4-45.2); HEMOGLOBIN 10.9 GM/dL (10.7-15.3); LYMPH % 16.7 % (8-40); MCH 30.2 pg (25.7-33.7); MEAN CELL VOLUME 91.7 fl (80-96); MEAN PLT VOLUME 7.6 fl (7.5-11.1); MONO % 10.5 % (3.8-10.2); NEUT % 67.4 % (42.8-82.8); PLATELET COUNT 222 10^3/uL (134-434); RBC 3.61 M/mm3 (3.60-5.2); RDW 17.7 % (11.6-15.6); WHITE BLOOD COUNT 6.1 K/mm3 (4.0-10.0)
[2024-05-29 09:34] LABS: POTASSIUM 4.5 mmol/L (3.5-5.1)
[2024-05-29 09:37] LABS: ALBUMIN 3.6 g/dl (3.4-5.0); BLOOD UREA NITROGEN 6.2 mg/dL (7-18); CALCIUM 9.1 mg/dL (8.5-10.1)
[2024-05-29 09:40] LABS: BILIRUBIN,DIRECT 0.1 mg/dL (0.0-0.2); CREATININE 0.6 mg/dL (0.55-1.3)
[2024-05-29 09:41] LABS: BILIRUBIN,TOTAL 0.4 mg/dL (0.2-1); TOT PROT 6.6 g/dl (6.4-8.2)
[2024-05-29] MEDS: PALONOSETRON HCL 0.25 MG/5 ML VIAL IVPUSH ONE (10:18)
[2024-05-29] MEDS: FOSAPREPITANT DIMEGLUMINE 150 MG in SODIUM CHLORIDE 145 ML IVPB ONE (10:19)
[2024-05-29] MEDS: DEXAMETHASONE SODIUM PHOSPHATE 10 MG, DIPHENHYDRAMINE 25 MG in SODIUM CHLORIDE 100 ML IVPB ONE (10:54)
[2024-05-29] MEDS: ACETAMINOPHEN 325 MG TABLET (FP) PO ONE (10:55)
[2024-05-29] MEDS: FAMOTIDINE 20 MG/50 ML IVPB 20 MG/50 ML MG IVPB ONE (11:26)
[2024-05-29] MEDS: SODIUM CHLORIDE IVPB ONE (12:03)
[2024-05-29] MEDS: [UNRECOGNIZED DRUG - OTHER] IVPB ONE (12:03)
[2024-05-29] MEDS: PORTA CATH FLUSH 10 ML IVPUSH PRN (14:20)
[2024-05-29 17:35] VITALS: RESP 20; TEMP 98
[2024-05-29 17:40] VITALS: BP 147/66; PULSE 86
== END 2024-05-29 14:30 | disposition home or self-care (01) ==
LOC: JONCCHEMO 08:29 → J7W 08:30 → JONCCHEMO 14:30
PROVIDERS: ATTEND Student in an Organized Health Care Education/Training Program
DX: Z51.11 Encounter for antineoplastic chemotherapy (principal); C50.911 Malignant neoplasm of unspecified site of right female breast
CPT/HCPCS: 36415; 80048; 80076; 85025; 96367; 96375; 96413; 96415; J1453; J9317

== ENCOUNTER 2024-05-30 14:50 | Day surgery (SDC) | payer OTHER ==
[2024-05-30] MEDS: PEGFILGRASTIM-CBQV (UDENYCA) 6 MG/0.6 ML SYRINGE SQ ONE (14:57)
[2024-05-30 18:01] VITALS: BP 156/78; PULSE 93; RESP 16; TEMP 98.2
== END 2024-05-30 15:15 | disposition home or self-care (01) ==
LOC: JONCCHEMO 14:50
PROVIDERS: ATTEND Student in an Organized Health Care Education/Training Program
PROC: 3E013GC Introduction of Other Therapeutic Substance into Subcutaneous Tissue, Percutaneous Approach (ICD-10-PCS; principal; 2024-05-30)
DX: C50.919 Malignant neoplasm of unspecified site of unspecified female breast (principal); C78.01 Secondary malignant neoplasm of right lung; C78.02 Secondary malignant neoplasm of left lung; Z76.89 Persons encountering health services in other specified circumstances
CPT/HCPCS: 96372; Q5111

== ENCOUNTER → 2024-06-01 | Day surgery (SDC) | payer OTHER | END | disposition home or self-care (01) | LOC: JRADIR 08:25 | PROVIDERS: ATTEND Internal Medicine Hematology & Oncology | PROC: 4A043B1 Measurement of Venous Pressure, Peripheral, Percutaneous Approach (ICD-10-PCS; principal; 2024-06-01) | DX: C50.919 Malignant neoplasm of unspecified site of unspecified female breast (principal) | CPT/HCPCS: 36598; 84703 ==

== ENCOUNTER 2024-06-12 08:31 | Day surgery (SDC) | payer OTHER ==
[2024-06-12 08:56] LABS: BASO % 0.4 % (0-2.0); EOS % 4.3 % (0-4.5); HEMATOCRIT 33.6 % (32.4-45.2); HEMOGLOBIN 11.5 GM/dL (10.7-15.3); LYMPH % 10.7 % (8-40); MCH 31.6 pg (25.7-33.7); MCHC 34.2 g/dl (32.0-36.0); MEAN CELL VOLUME 92.3 fl (80-96); MEAN PLT VOLUME 7.9 fl (7.5-11.1); MONO % 4.9 % (3.8-10.2); NEUT % 79.7 % (42.8-82.8); PLATELET COUNT 131 10^3/uL (134-434); RBC 3.64 M/mm3 (3.60-5.2); RDW 16.9 % (11.6-15.6); WHITE BLOOD COUNT 9.1 K/mm3 (4.0-10.0)
[2024-06-12 09:04] LABS: CHLORIDE 103 mmol/L (98-107); POTASSIUM 4.5 mmol/L (3.5-5.1); SODIUM 139 mmol/L (136-145)
[2024-06-12 09:06] LABS: CALCIUM 8.9 mg/dL (8.5-10.1)
[2024-06-12 09:07] LABS: ALBUMIN 3.5 g/dl (3.4-5.0); ANION GAP 5 mmol/L (4-13); CO2 30 mmol/L (21-32); GLUCOSE,RANDOM 242 mg/dL (74-106)
[2024-06-12 09:09] LABS: BILIRUBIN,DIRECT 0.1 mg/dL (0.0-0.2); CREATININE 0.7 mg/dL (0.55-1.3); SGOT/AST 16 U/L (15-37); SGPT/ALT 26 U/L (13-61)
[2024-06-12 09:11] LABS: BILIRUBIN,TOTAL 0.4 mg/dL (0.2-1); TOT PROT 6.5 g/dl (6.4-8.2)
[2024-06-12 09:12] LABS: ALK PHOS 183 U/L (45-117)
[2024-06-12 09:46] VITALS: TEMP 98.2
[2024-06-12] MEDS: FAMOTIDINE 20 MG/50 ML IVPB 20 MG/50 ML MG IVPB ONE (10:22)
[2024-06-12] MEDS: FOSAPREPITANT DIMEGLUMINE 150 MG in SODIUM CHLORIDE 145 ML IVPB ONE (10:54)
[2024-06-12] MEDS: DEXAMETHASONE SODIUM PHOSPHATE 10 MG, DIPHENHYDRAMINE 25 MG in SODIUM CHLORIDE 100 ML IVPB ONE (11:30)
[2024-06-12] MEDS: ACETAMINOPHEN 325 MG TABLET (FP) PO ONE (11:32)
[2024-06-12] MEDS: PALONOSETRON HCL 0.25 MG/5 ML VIAL IVPUSH ONE (11:33)
[2024-06-12] MEDS: SODIUM CHLORIDE IVPB ONE (12:04)
[2024-06-12] MEDS: [UNRECOGNIZED DRUG - OTHER] IVPB ONE (12:04)
[2024-06-12] MEDS: PORTA CATH FLUSH 10 ML IVPUSH PRN (14:13)
[2024-06-12 14:28] VITALS: BP 179/77; PULSE 84; RESP 16
== END 2024-06-12 14:28 | disposition home or self-care (01) ==
LOC: J7W 08:31 → JONCCHEMO 08:31
PROVIDERS: ATTEND Internal Medicine Hematology & Oncology
DX: Z51.11 Encounter for antineoplastic chemotherapy (principal); C50.911 Malignant neoplasm of unspecified site of right female breast
CPT/HCPCS: 36415; 80048; 80076; 85025; 96367; 96375; 96413; 96415; J1453; J9317

== ENCOUNTER 2024-06-21 14:10 | Day surgery (SDC) | payer OTHER ==
[2024-06-21] MEDS: PEGFILGRASTIM-CBQV (UDENYCA) 6 MG/0.6 ML SYRINGE SQ ONE (14:24)
[2024-06-21 15:54] VITALS: BP 156/83; PULSE 90; RESP 18; TEMP 98
== END 2024-06-21 14:55 | disposition home or self-care (01) ==
LOC: JONCCHEMO 14:10 → J7W 14:12 → JONCCHEMO 14:55
PROVIDERS: ATTEND Internal Medicine Hematology & Oncology
PROC: 3E013GC Introduction of Other Therapeutic Substance into Subcutaneous Tissue, Percutaneous Approach (ICD-10-PCS; principal; 2024-06-21)
DX: Z76.89 Persons encountering health services in other specified circumstances (principal); C50.911 Malignant neoplasm of unspecified site of right female breast
CPT/HCPCS: 96372; Q5111

== ENCOUNTER 2024-07-30 08:49 | Inpatient (IN) | payer OTHER ==
[2024-07-30] MEDS ORDERED: KETOROLAC TROMETHAMINE 15 MG/ML VIAL ONE (10:09)
[2024-07-30] MEDS ORDERED: ACETAMINOPHEN 500 MG TABLET (FP) ONE ×2 (10:09→10:12)
[2024-07-30] MEDS ORDERED: METHOCARBAMOL 500 MG TABLET ONE (10:09)
[2024-07-30] MEDS: ACETAMINOPHEN 500 MG TABLET (FP) PO ONE (10:20)
[2024-07-30] MEDS: KETOROLAC TROMETHAMINE 15 MG/ML VIAL IM ONE (10:20)
[2024-07-30] MEDS: METHOCARBAMOL 500 MG TABLET PO ONE (10:20)
[2024-07-30] MEDS ORDERED: oxyCODONE HCL 5 MG TABLET ONE (11:35)
[2024-07-30] MEDS: oxyCODONE HCL 5 MG TABLET PO ONE (11:43)
[2024-07-30] MEDS ORDERED: MORPHINE SULFATE 2 MG/ML SYRINGE IVPUSH PRN (15:34)
[2024-07-30] MEDS ORDERED: KETOROLAC TROMETHAMINE 15 MG/ML VIAL IVPUSH PRN (15:34)
[2024-07-30] MEDS ORDERED: MORPHINE SULFATE 2 MG/ML SYRINGE ONE (16:13)
[2024-07-30] MEDS: morphine CARPU-JECT 2 MG/1 ML DISP.SYRIN IVPUSH ONE (16:40)
[2024-07-30 16:47] LABS: BASO % 1.2 % (0-2.0); EOS % 10.5 % (0-4.5); HEMOGLOBIN 10.7 GM/dL (10.7-15.3); MCH 30.5 pg (25.7-33.7); MCHC 33.2 g/dl (32.0-36.0); MEAN CELL VOLUME 91.8 fl (80-96); MONO % 9.9 % (3.8-10.2); NEUT % 60.4 % (42.8-82.8); PLATELET COUNT 241 10^3/uL (134-434); RBC 3.49 M/mm3 (3.60-5.2); RDW 15.2 % (11.6-15.6); WHITE BLOOD COUNT 7.4 K/mm3 (4.0-10.0)
[2024-07-30 17:24] LABS: POTASSIUM 4.2 mmol/L (3.5-5.1)
[2024-07-30 17:26] LABS: ALBUMIN 3.3 g/dl (3.4-5.0); BLOOD UREA NITROGEN 13.8 mg/dL (7-18); CALCIUM 8.8 mg/dL (8.5-10.1)
[2024-07-30 17:29] LABS: CREATININE 0.6 mg/dL (0.55-1.3)
[2024-07-30 17:31] LABS: BILIRUBIN,TOTAL 0.3 mg/dL (0.2-1); TOT PROT 6.6 g/dl (6.4-8.2)
[2024-07-30 18:12] VITALS: BMI 32.8
[2024-07-30] MEDS: INSULIN ASPART SLIDING SCALE (NOVOLOG) 1 VIAL SQ SCH (18:15)
[2024-07-30] MEDS ORDERED: QUEtiapine FUMARATE 100 MG TABLET (FP) ONE (21:23)
[2024-07-30] MEDS: AMITRIPTYLINE HCL 75 MG TABLET PO SCH (21:28)
[2024-07-30] MEDS: METOPROLOL TARTRATE 50 MG TABLET (FP) PO SCH (21:29)
[2024-07-30] MEDS: QUEtiapine FUMARATE 100 MG TABLET (FP) PO SCH (21:52)
[2024-07-30] MEDS: INSULIN (LEVEMIR) 100 UNITS/ML UNITS SQ SCH (21:58)
[2024-07-30] MEDS ORDERED: QUEtiapine FUMARATE 300 MG TABLET PO SCH (22:00)
[2024-07-31] MEDS: LISINOPRIL 10 MG TABLET PO SCH (09:10)
[2024-07-31] MEDS: amLODIPine BESYLATE 5 MG TABLET (FP) PO SCH (09:10)
[2024-07-31] MEDS: ARIPiprazole 10 MG TABLET PO SCH (09:11)
[2024-07-31 09:23] LABS: HEMATOCRIT 33.3 % (32.4-45.2); HEMOGLOBIN 11.1 GM/dL (10.7-15.3); MCH 30.5 pg (25.7-33.7); MCHC 33.3 g/dl (32.0-36.0); MEAN CELL VOLUME 91.6 fl (80-96); MEAN PLT VOLUME 7.4 fl (7.5-11.1); PLATELET COUNT 253 10^3/uL (134-434); RBC 3.64 M/mm3 (3.60-5.2); RDW 15.2 % (11.6-15.6); WHITE BLOOD COUNT 6.8 K/mm3 (4.0-10.0)
[2024-07-31 09:49] LABS: POTASSIUM 4.4 mmol/L (3.5-5.1)
[2024-07-31] MEDS: ACETAMINOPHEN 325 MG TABLET (FP) PO SCH (10:04)
[2024-07-31 10:07] LABS: BLOOD UREA NITROGEN 11.4 mg/dL (7-18); CALCIUM 9.2 mg/dL (8.5-10.1); MAGNESIUM 1.7 mg/dL (1.8-2.4)
[2024-07-31 10:10] LABS: CREATININE 0.5 mg/dL (0.55-1.3); PHOSPHOROUS 4.6 mg/dL (2.5-4.9)
[2024-07-31] MEDS ORDERED: ACETAMINOPHEN 325 MG TABLET (FP) PO SCH (10:23)
[2024-07-31] MEDS: ACETAMINOPHEN 500 MG TABLET (FP) PO SCH (11:13)
[2024-07-31] MEDS: MAGNESIUM 2GM/50ML STERILE WATER IVPB IVPB ONE ×2 (11:14→19:51)
[2024-07-31] MEDS: KETOROLAC TROMETHAMINE 15 MG/ML VIAL IVPUSH SCH ×2 (11:20→17:44)
[2024-07-31] MEDS ORDERED: KETOROLAC TROMETHAMINE 15 MG/ML VIAL IVPUSH SCH ×2 (12:00→17:00)
[2024-07-31] MEDS: POLYETHYLENE GLYCOL (HEALTHYLAX) 3350 17 GM PACKET PO SCH (13:42)
[2024-07-31] MEDS: ROSUVASTATIN CA 5 MG TABLET PO SCH (21:26)
[2024-08-01] MEDS: oxyCODONE HCL 5 MG TABLET PO PRN (08:30)
[2024-08-01 09:51] LABS: HEMATOCRIT 30.4 % (32.4-45.2); HEMOGLOBIN 10.3 GM/dL (10.7-15.3); MCH 30.8 pg (25.7-33.7); MEAN CELL VOLUME 90.6 fl (80-96); MEAN PLT VOLUME 7.2 fl (7.5-11.1); PLATELET COUNT 235 10^3/uL (134-434); RBC 3.35 M/mm3 (3.60-5.2); RDW 14.8 % (11.6-15.6); WHITE BLOOD COUNT 5.9 K/mm3 (4.0-10.0)
[2024-08-01] MEDS ORDERED: morphine CARPU-JECT 2 MG/1 ML DISP.SYRIN IVPUSH PRN (10:59)
[2024-08-01 11:06] LABS: POTASSIUM 4.2 mmol/L (3.5-5.1)
[2024-08-01 11:13] LABS: ALBUMIN 2.9 g/dl (3.4-5.0); CALCIUM 8.3 mg/dL (8.5-10.1)
[2024-08-01 11:14] LABS: BLOOD UREA NITROGEN 12.3 mg/dL (7-18); MAGNESIUM 1.7 mg/dL (1.8-2.4)
[2024-08-01 11:17] LABS: CREATININE 0.5 mg/dL (0.55-1.3); PHOSPHOROUS 5.1 mg/dL (2.5-4.9)
[2024-08-01 11:18] LABS: BILIRUBIN,TOTAL 0.4 mg/dL (0.2-1)
[2024-08-01] MEDS ORDERED: NAPROXEN 500 MG TABLET PO PRN (12:00)
[2024-08-01] MEDS: NAPROXEN 500 MG TABLET PO SCH (12:33)
[2024-08-01] MEDS: oxyCODONE HCL 5 MG TABLET PO SCH (13:15)
[2024-08-01] MEDS: LIDOCAINE PATCH REMOVAL MC SCH (22:16)
[2024-08-02 09:32] LABS: HEMATOCRIT 33.6 % (32.4-45.2); MCH 30.1 pg (25.7-33.7); MCHC 32.9 g/dl (32.0-36.0); MEAN CELL VOLUME 91.6 fl (80-96); MEAN PLT VOLUME 7.4 fl (7.5-11.1); PLATELET COUNT 254 10^3/uL (134-434); RBC 3.66 M/mm3 (3.60-5.2); RDW 15.4 % (11.6-15.6); WHITE BLOOD COUNT 6.5 K/mm3 (4.0-10.0)
[2024-08-02 09:50] LABS: POTASSIUM 4.6 mmol/L (3.5-5.1)
[2024-08-02 10:09] LABS: ALBUMIN 3.4 g/dl (3.4-5.0); BLOOD UREA NITROGEN 13.9 mg/dL (7-18); CALCIUM 8.8 mg/dL (8.5-10.1)
[2024-08-02 10:12] LABS: CREATININE 0.6 mg/dL (0.55-1.3); PHOSPHOROUS 5.4 mg/dL (2.5-4.9)
[2024-08-02 10:13] LABS: BILIRUBIN,TOTAL 0.4 mg/dL (0.2-1)
[2024-08-02 10:14] LABS: TOT PROT 6.5 g/dl (6.4-8.2)
[2024-08-02] MEDS: LIDOCAINE 4% PATCH TP SCH (10:35)
[2024-08-02 15:28] VITALS: BP 141/61; PULSE 71; RESP 17; TEMP 97.3
== END 2024-08-02 18:15 | disposition home or self-care (01) | DRG 343 ==
LOC: JER 08:49 → JERBED 14:49 → J6S 17:48
PROVIDERS: ATTEND Internal Medicine
DX: C79.51 Secondary malignant neoplasm of bone (principal); C78.7 Secondary malignant neoplasm of liver and intrahepatic bile duct; C79.31 Secondary malignant neoplasm of brain; C79.81 Secondary malignant neoplasm of breast; E11.9 Type 2 diabetes mellitus without complications; I10 Essential (primary) hypertension; E78.5 Hyperlipidemia, unspecified; F41.8 Other specified anxiety disorders
CPT/HCPCS: 36415; 72100-TC-FY; 72148-TC; 72192-TC; 73521-TC-FY; 80048; 80053; 82962; 83735; 84100; 85025; 85027; 93005; 93010; 97116-GP; 97162-GP; 99285-25

== ENCOUNTER 2024-10-31 15:23 | Inpatient (IN) | payer OTHER ==
[2024-10-31 17:41] LABS: EPI CELLS 12 /uL (0-25.1); HYALINE CASTS 1 /uL (0-3.1); PH,URINE 6.5 (5.0-8.0); URINE APPEARANCE CLOUDY; URINE BACTERIA >9,000 /uL (0-1359); URINE BILIRUBIN NEGATIVE (NEGATIVE); URINE COLOR YELLOW; URINE GLUCOSE (UA) NEGATIVE (NEGATIVE); URINE KETONE NEGATIVE (NEGATIVE); URINE LEUK ESTERASE 3+ (NEGATIVE); URINE NITRITE POSITIVE (NEGATIVE); URINE PROTEIN TRACE (NEGATIVE); URINE RBC 10 /uL (0-23.9); URINE WBC 896 /uL (0-25.8)
[2024-10-31] MEDS ORDERED: CEFEPIME HCL/D5W 1 GM/50 ML BAG IVPB ONE (17:46)
[2024-10-31] MEDS ORDERED: ACETAMINOPHEN INJECTION 100 ML ONE (17:46)
[2024-10-31] MEDS: ACETAMINOPHEN 1000 MG/100 ML BAG IVPB ONE (17:52)
[2024-10-31 17:53] LABS: EOSINOPHIL % 0.4 % (0.7-5.8); EOSINOPHILS # 0.02 x10^3/uL (0.04-0.36); HEMOGLOBIN 11.2 g/dL (11.2-15.7)
[2024-10-31 17:55] LABS: ABSOLUTE IMMATURE GRANULOCYTES 0.02 x10^3/uL (0.0-0.031); BASOPHILS # 0.01 x10^3/uL (0.01-0.08); HEMATOCRIT 33.4 % (34.1-44.9); MCHC 33.5 g/dl (32.2-35.5); MEAN CELL VOLUME 88.6 fl (79.4-94.8); MEAN PLT VOLUME 9.7 fl (9.4-12.3); MONOCYTE # 0.82 x10^3/uL (0.24-0.86); MONOCYTE % 14.8 % (4.7-12.5); PLATELET COUNT 192 x10^3/uL (182-369); RDW 16.2 % (12.3-16.6)
[2024-10-31] MEDS: CEFEPIME HCL 1 GM VIAL (RESTRICTED TO ID) IVPB ONE (17:58)
[2024-10-31 18:03] LABS: VENOUS BASE EXCESS 1.3 mmol/L (-2-2); VENOUS O2 SATURATION 80.8 % (70-80); VENOUS PCO2 45.1 mmHg (38-52); VENOUS PH 7.388 (7.310-7.410)
[2024-10-31 18:04] LABS: INR 1.38 (0.83-1.09); PROTHROMBIN TIME (PATIENT) 15.2 SEC (9.7-13.0)
[2024-10-31 18:07] LABS: ACTIVATED PTT 29.5 SECONDS (25.2-36.5)
[2024-10-31 18:09] LABS: POTASSIUM 4.2 mmol/L (3.5-5.1)
[2024-10-31] MEDS: VANCOMYCIN 1,000 MG in DEXTROSE 5%-WATER - 250 ML IVPB ONE (18:10)
[2024-10-31 18:12] LABS: ALBUMIN 3.3 g/dl (3.4-5.0); BLOOD UREA NITROGEN 13.2 mg/dL (7-18)
[2024-10-31 18:15] LABS: CREATININE 0.8 mg/dL (0.55-1.3)
[2024-10-31 18:16] LABS: BILIRUBIN,TOTAL 0.7 mg/dL (0.2-1)
[2024-10-31 18:17] LABS: TOT PROT 6.7 g/dl (6.4-8.2)
[2024-10-31] MEDS: SODIUM CHLORIDE 0.9% 500 ML INFUS.BAG IV ONE (18:35)
[2024-10-31 19:09] LABS: HCV DIAGNOSTIC IN-HOUSE W/RFLX NON-REACTIVE (NONREACTIVE); HIV INTERPRETATION NEGATIVE (NEGATIVE)
[2024-10-31] MEDS ORDERED: VANCOMYCIN 1 GM PREMIX (F) 1 GM/200 ML BAG ONE (20:22)
[2024-10-31] MEDS ORDERED: MORPHINE SULFATE 2 MG/ML SYRINGE ONE (20:34)
[2024-10-31] MEDS ORDERED: ACETAMINOPHEN 325 MG TABLET (FP) PO PRN (20:38)
[2024-10-31] MEDS: morphine SULFATE 4 MG/ML VIAL IVPUSH ONE (20:46)
[2024-10-31] MEDS: VANCOMYCIN 1 GM PREMIX (F) 1 GM/200 ML BAG IVPB ONE (20:46)
[2024-10-31] MEDS: SODIUM CHLORIDE 1,000 ML IV SCH (21:15)
[2024-10-31] MEDS ORDERED: PATIENT'S OWN MEDICATION (NON-FORMULARY) (Insulin Lispro [Humalog] 100 UNIT/ML Cartridge) SQ SCH (22:00)
[2024-10-31] MEDS ORDERED: QUEtiapine FUMARATE 100 MG TABLET (FP) ONE (23:16)
[2024-11-01] MEDS: QUEtiapine FUMARATE 300 MG TABLET PO SCH (00:14)
[2024-11-01] MEDS: METOPROLOL TARTRATE 50 MG TABLET (FP) PO SCH ×2 (00:14→21:39)
[2024-11-01] MEDS: AMITRIPTYLINE HCL 75 MG TABLET PO SCH ×2 (00:20→21:39)
[2024-11-01] MEDS: INSULIN GLARGINE (LANTUS) 100 UNITS/ML UNITS SQ SCH (00:20)
[2024-11-01 01:17] VITALS: BMI 33.5
[2024-11-01] MEDS: INSULIN ASPART SLIDING SCALE (NOVOLOG) 1 VIAL SQ SCH (07:27)
[2024-11-01 08:44] LABS: HEMATOCRIT 28.2 % (34.1-44.9); HEMOGLOBIN 9.4 g/dL (11.2-15.7); MCHC 33.3 g/dl (32.2-35.5); MEAN CELL VOLUME 89.2 fl (79.4-94.8); MEAN PLT VOLUME 9.4 fl (9.4-12.3); PLATELET COUNT 152 x10^3/uL (182-369); RDW 16.5 % (12.3-16.6)
[2024-11-01] MEDS: INSULIN (NOVOLOG) ASPART 100 UNITS/ML 10ML VIAL SQ SCH (08:56)
[2024-11-01 08:58] LABS: POTASSIUM 3.5 mmol/L (3.5-5.1)
[2024-11-01 09:00] LABS: BLOOD UREA NITROGEN 9.6 mg/dL (7-18)
[2024-11-01 09:01] LABS: CALCIUM 8.5 mg/dL (8.5-10.1)
[2024-11-01 09:04] LABS: CREATININE 0.6 mg/dL (0.55-1.3)
[2024-11-01] MEDS: LISINOPRIL 10 MG TABLET PO SCH (10:29)
[2024-11-01] MEDS: FERROUS SO4 325 MG TABLET (FP) PO SCH (10:29)
[2024-11-01] MEDS: amLODIPine BESYLATE 5 MG TABLET (FP) PO SCH (10:29)
[2024-11-01] MEDS: LIDOCAINE 4% PATCH TP SCH (10:30)
[2024-11-01] MEDS: ENOXAPARIN NA (PORCINE) 40 MG/0.4 ML DISP.SYRIN SQ SCH (10:30)
[2024-11-01] MEDS: CEFTRIAXONE 1 GM in DEXTROSE 5%-WATER - 50 ML IVPB SCH (10:30)
[2024-11-01] MEDS: oxyCODONE HCL 5 MG TABLET PO PRN (10:30)
[2024-11-01] MEDS ORDERED: NAPROXEN 500 MG TABLET PO PRN (15:55)
[2024-11-01] MEDS: traZODone HCL 50 MG TABLET (FP) PO SCH (21:38)
[2024-11-01] MEDS: LIDOCAINE PATCH REMOVAL MC SCH (21:38)
[2024-11-01] MEDS: ROSUVASTATIN CA 5 MG TABLET PO SCH (21:38)
[2024-11-01] MEDS: MEMANTINE HCL 10 MG TABLET (FP) PO SCH (21:39)
[2024-11-01] MEDS ORDERED: ROSUVASTATIN CA 5 MG TABLET PO SCH (22:00)
[2024-11-02] MEDS: guaiFENesin/D-METHORPHAN HB 10 ML UNIT-DOSE CUPS PO PRN (02:21)
[2024-11-02 08:44] LABS: HEMATOCRIT 30.3 % (34.1-44.9); MEAN CELL VOLUME 89.9 fl (79.4-94.8); MEAN PLT VOLUME 9.5 fl (9.4-12.3); PLATELET COUNT 170 x10^3/uL (182-369); RDW 16.8 % (12.3-16.6)
[2024-11-02 09:01] LABS: POTASSIUM 3.6 mmol/L (3.5-5.1)
[2024-11-02 09:14] LABS: BLOOD UREA NITROGEN 7.1 mg/dL (7-18); CALCIUM 9.1 mg/dL (8.5-10.1)
[2024-11-02 09:18] LABS: CREATININE 0.6 mg/dL (0.55-1.3)
[2024-11-02 09:19] LABS: BILIRUBIN,TOTAL 0.5 mg/dL (0.2-1); TOT PROT 5.9 g/dl (6.4-8.2)
[2024-11-02] MEDS: amLODIPine BESYLATE 5 MG TABLET (FP) PO SCH (10:25)
[2024-11-02] MEDS: LISINOPRIL 10 MG TABLET PO SCH (10:26)
[2024-11-02] MEDS: ARIPiprazole 20 MG TABLET PO SCH (10:36)
[2024-11-02 12:08] VITALS: BP 120/66; PULSE 115; RESP 16; TEMP 97.7
== END 2024-11-02 14:19 | disposition home or self-care (01) | DRG 463 ==
LOC: JER 15:23 → JERBED 21:15 → J6S 22:46 → OBSVTOIN 11-01 11:23 → J6S 11-01 14:00
PROVIDERS: ADMIT Hospitalist; ATTEND Internal Medicine
DX: N39.0 Urinary tract infection, site not specified (principal); C78.00 Secondary malignant neoplasm of unspecified lung; C78.7 Secondary malignant neoplasm of liver and intrahepatic bile duct; G93.41 Metabolic encephalopathy; C79.31 Secondary malignant neoplasm of brain; C50.919 Malignant neoplasm of unspecified site of unspecified female breast; E11.9 Type 2 diabetes mellitus without complications; E78.5 Hyperlipidemia, unspecified; I10 Essential (primary) hypertension; R50.9 Fever, unspecified; F03.90 Unspecified dementia, unspecified severity, without behavioral disturbance, psychotic disturbance, mood disturbance, and anxiety
CPT/HCPCS: 0241U-QW; 36415; 70450-TC; 71045-TC-FY; 80048; 80053; 81003; 82803; 82962; 83605; 84484; 85025; 85027; 85610; 85730; 86803; 86850; 86900; 86901; 87040; 87086; 87389; 93005; 93010; 97116-GP; 97161-GP; 99285-25; G0378; J0131

== ENCOUNTER 2024-11-23 10:06 | Emergency (ER) | payer OTHER ==
[2024-11-23 10:16] VITALS: BP 152/76; PULSE 88; RESP 18; TEMP 98.1; BMI 32.1
[2024-11-23] MEDS ORDERED: ACETAMINOPHEN INJECTION 100 ML ONE (11:05)
[2024-11-23] MEDS: ACETAMINOPHEN 1000 MG/100 ML BAG IVPB ONE (11:15)
[2024-11-23 11:32] LABS: ABSOLUTE IMMATURE GRANULOCYTES 0.02 x10^3/uL (0.0-0.031); BASOPHILS # 0.03 x10^3/uL (0.01-0.08); EOSINOPHIL % 8.9 % (0.7-5.8); EOSINOPHILS # 0.44 x10^3/uL (0.04-0.36); HEMATOCRIT 33.2 % (34.1-44.9); HEMOGLOBIN 11.3 g/dL (11.2-15.7); MEAN CELL VOLUME 92.5 fl (79.4-94.8); MEAN PLT VOLUME 9.5 fl (9.4-12.3); MONOCYTE % 10.1 % (4.7-12.5); PLATELET COUNT 152 x10^3/uL (182-369); RDW 18.1 % (12.3-16.6)
[2024-11-23 12:05] LABS: POTASSIUM 4.3 mmol/L (3.5-5.1)
[2024-11-23 12:08] LABS: ALBUMIN 3.8 g/dl (3.4-5.0); BLOOD UREA NITROGEN 5.9 mg/dL (7-18); CALCIUM 9.2 mg/dL (8.5-10.1)
[2024-11-23 12:11] LABS: CREATININE 0.6 mg/dL (0.55-1.3)
[2024-11-23 12:13] LABS: BILIRUBIN,TOTAL 0.6 mg/dL (0.2-1); TOT PROT 6.6 g/dl (6.4-8.2)
[2024-11-23 12:51] LABS: HCV DIAGNOSTIC IN-HOUSE W/RFLX NON-REACTIVE (NONREACTIVE); HIV INTERPRETATION NEGATIVE (NEGATIVE)
== END 2024-11-23 13:53 | disposition home or self-care (01) ==
LOC: JER 10:06
PROC: 3E033NZ Introduction of Analgesics, Hypnotics, Sedatives into Peripheral Vein, Percutaneous Approach (ICD-10-PCS; principal; 2024-11-23)
DX: M79.89 Other specified soft tissue disorders (principal); M79.604 Pain in right leg; M79.605 Pain in left leg
CPT/HCPCS: 36415; 73610-TC-RT-FY; 73630-TC-RT-FY; 80053; 85025; 86803; 87389; 93971-TC; 99285-25

== ENCOUNTER 2024-12-26 18:45 | Observation (INO) | payer OTHER ==
[2024-12-26 18:58] VITALS: BMI 32.1
[2024-12-26 20:27] LABS: ABSOLUTE IMMATURE GRANULOCYTES 0.02 x10^3/uL (0.0-0.031); BASOPHILS # 0.02 x10^3/uL (0.01-0.08); EOSINOPHIL % 5.9 % (0.7-5.8); EOSINOPHILS # 0.34 x10^3/uL (0.04-0.36); MCHC 34.1 g/dl (32.2-35.5); MEAN CELL VOLUME 97.4 fl (79.4-94.8); MEAN PLT VOLUME 10.0 fl (9.4-12.3); MONOCYTE # 0.59 x10^3/uL (0.24-0.86); MONOCYTE % 10.3 % (4.7-12.5); RDW 16.6 % (12.3-16.6)
[2024-12-26 20:52] LABS: INR 1.13 (0.83-1.09); PROTHROMBIN TIME (PATIENT) 12.4 SEC (9.7-13.0)
[2024-12-26 20:55] LABS: ACTIVATED PTT 30.0 SECONDS (25.2-36.5)
[2024-12-26 20:59] LABS: CO2 25.0 mmol/L (21-32)
[2024-12-26 21:00] LABS: GLUCOSE,RANDOM 126.0 mg/dL (74-106)
[2024-12-26 21:03] LABS: CREATININE 0.6 mg/dL (0.55-1.3); SGOT/AST 16.0 U/L (15-37); SGPT/ALT 14.0 U/L (13-61)
[2024-12-26 21:04] LABS: TOT PROT 6.2 g/dl (6.4-8.2)
[2024-12-26 21:05] LABS: ALK PHOS 87.0 U/L (45-117)
[2024-12-27] MEDS ORDERED: ONDANSETRON 4 MG/2 ML VIAL IVPUSH PRN (00:18)
[2024-12-27] MEDS ORDERED: MORPHINE SULFATE 2 MG/ML SYRINGE IVPUSH PRN (00:18)
[2024-12-27] MEDS ORDERED: HYDROmorphone HCL CARPU-JECT 2 MG/1 ML DISP.SYRIN IVPUSH PRN (00:23)
[2024-12-27 01:52] VITALS: RESP 18
[2024-12-27] MEDS: KETOROLAC TROMETHAMINE 15 MG/ML VIAL IVPUSH PRN (02:03)
[2024-12-27] MEDS: INSULIN ASPART SLIDING SCALE (NOVOLOG) 1 VIAL SQ SCH (06:05)
[2024-12-27] MEDS: ACETAMINOPHEN 500 MG TABLET (FP) PO SCH (07:03)
[2024-12-27] MEDS: INSULIN (NOVOLOG) ASPART 100 UNITS/ML 10ML VIAL SQ SCH (07:58)
[2024-12-27] MEDS: LISINOPRIL 10 MG TABLET PO SCH (10:25)
[2024-12-27] MEDS: METOPROLOL TARTRATE 50 MG TABLET (FP) PO SCH (10:25)
[2024-12-27] MEDS: MEMANTINE HCL 10 MG TABLET (FP) PO SCH (10:25)
[2024-12-27] MEDS: amLODIPine BESYLATE 5 MG TABLET (FP) PO SCH (10:39)
[2024-12-27] MEDS: ENOXAPARIN NA (PORCINE) 40 MG/0.4 ML DISP.SYRIN SQ SCH (10:39)
[2024-12-27 12:21] LABS: EPI CELLS 5 /uL (0-25.1); HYALINE CASTS 0 /uL (0-3.1); URINE APPEARANCE TURBID; URINE BACTERIA >9,000 /uL (0-1359); URINE BILIRUBIN NEGATIVE (NEGATIVE); URINE COLOR YELLOW; URINE GLUCOSE (UA) NEGATIVE (NEGATIVE); URINE KETONE NEGATIVE (NEGATIVE); URINE LEUK ESTERASE 3+ (NEGATIVE); URINE NITRITE POSITIVE (NEGATIVE); URINE PROTEIN 2+ (NEGATIVE); URINE UROBILINOGEN 0.2 mg/dL (0.2-1.0); URINE WBC 12580 /uL (0-25.8)
[2024-12-27 12:42] LABS: URINE RBC 238 /uL (0-23.9); YEAST NOT PRESENT (NEGATIVE)
[2024-12-27 13:09] LABS: HIV INTERPRETATION NEGATIVE (NEGATIVE)
[2024-12-27 13:15] LABS: HCV DIAGNOSTIC IN-HOUSE W/RFLX NON-REACTIVE (NONREACTIVE)
[2024-12-27] MEDS: morphine CARPU-JECT 2 MG/1 ML DISP.SYRIN IVPUSH PRN (13:54)
[2024-12-27 14:23] VITALS: BP 144/69; PULSE 82; TEMP 98.1
[2024-12-27] MEDS ORDERED: INSULIN GLARGINE (LANTUS) 100 UNITS/ML UNITS SQ SCH (22:00)
[2024-12-27] MEDS ORDERED: AMITRIPTYLINE HCL 75 MG TABLET PO SCH (22:00)
[2024-12-27] MEDS ORDERED: traZODone HCL 50 MG TABLET (FP) PO SCH (22:00)
[2024-12-27] MEDS ORDERED: ROSUVASTATIN CA 5 MG TABLET PO SCH (22:00)
== END 2024-12-27 15:30 | disposition home or self-care (01) ==
LOC: JER 18:45 → JERBED 19:24 → J7W 12-27 01:56
PROVIDERS: ADMIT Hospitalist; ATTEND Internal Medicine
DX: G89.3 Neoplasm related pain (acute) (chronic) (principal); C50.919 Malignant neoplasm of unspecified site of unspecified female breast; C78.00 Secondary malignant neoplasm of unspecified lung; C79.31 Secondary malignant neoplasm of brain; C79.51 Secondary malignant neoplasm of bone; I10 Essential (primary) hypertension; E11.9 Type 2 diabetes mellitus without complications; E78.5 Hyperlipidemia, unspecified; K76.9 Liver disease, unspecified; Z79.84 Long term (current) use of oral hypoglycemic drugs; Z79.4 Long term (current) use of insulin
CPT/HCPCS: 36415; 71045-TC-FY; 74177-TC; 76705-TC; 80053; 81003; 82962; 83605; 83690; 83735; 85025; 85610; 85730; 86803; 86850; 86900; 86901; 87086; 87389; 93005; 93010; 96374; 99285-25; G0378